=== PATIENT | female | born 1950 | race Caucasian/White ===

== ENCOUNTER 2018-08-04 01:05 | Inpatient (IN) | payer OTHER ==
[2018-08-04] VITALS (25 sets, daily range): BP systolic 99–161; BP diastolic 51–94
[~2018-08-04] VITALS: Ht 157.5 cm; Wt 63.7 kg
[~2018-08-04 01:05] MED LIST: ASPI-612 PO; ATOR40TA59 PO; CARV3.1210 PO; FURO40TA4 PO; LISI-338 PO; POTA20TA4 PO; TICA90TA PO
[2018-08-04 01:27] LABS: BASO # 0.1 x10^3/uL (0.0-0.2); BASO % 1 % (0-3); EOS % 0 % (0-3); HEMATOCRIT 39.2 % (36.0-47.0); HEMOGLOBIN 12.7 g/dL (12.0-15.5); LYMPH # 1.2 x10^3/uL (1.0-4.8); LYMPH % 12 % (24-48); MEAN CORPUSCULAR HEMOGLOBIN 29 pg (25-35); MEAN CORPUSCULAR HGB CONC 32 g/dL (31-37); MEAN CORPUSCULAR VOLUME 88 fL (79-100); MONO # 0.4 x10^3/uL (0.0-1.1); MONO % 4 % (0-9); NEUT % 83 % (31-73); PLATELET COUNT 228 x10^3/uL (140-400); RED BLOOD COUNT 4.44 x10^6/uL (3.50-5.40); RED CELL DISTRIBUTION WIDTH 15.5 % (11.5-14.5); WHITE BLOOD COUNT 9.7 x10^3/uL (4.0-11.0)
[2018-08-04 01:37] LABS: CALCIUM 8.5 mg/dL (8.5-10.1); CREATININE 1.3 mg/dL (0.6-1.0); GFR 40.5; POTASSIUM 3.6 mmol/L (3.5-5.1)
--- NOTE | 2018-08-04 01:41 | PHYS DOC ---
Past Medical History Past Medical History: CVA, Stroke Past Surgical History: No Surgical History Alcohol Use: None Drug Use: None Adult General Chief Complaint Chief Complaint: DYSPNEA/RESPIRATOY DISTRESS HPI HPI Patient is a 68 year old female presents with a chief complaint of shortness of breath. Patient states shortness of breath started suddenly around 2300 hrs. Patient states she has a mild associated cough without sputum production. She denies any chest pain. Patient arrived via EMS with the BiPAP in place. Review of Systems Review of Systems Constitutional: Denies fever or chills [] Eyes: Denies change in visual acuity, redness, or eye pain [] HENT: Denies nasal congestion or sore throat [] Respiratory: Denies cough positive shortness of breath [] Cardiovascular: No additional information not addressed in HPI [] GI: Denies abdominal pain, nausea, vomiting, bloody stools or diarrhea [] : Denies dysuria or hematuria [] Musculoskeletal: Denies back pain or joint pain [] Integument: Denies rash or skin lesions [] Neurologic: Denies headache, focal weakness or sensory changes [] Endocrine: Denies polyuria or polydipsia [] All other systems were reviewed and found to be within normal limits, except as documented in this note. Current Medications Current Medications Current Medications Medications (Trade) Dose Ordered Sig/Darby Start Time Stop Time Status Last Admin Dose Admin Furosemide (Lasix) 40 mg 1X ONCE 08/04/18 02:15 08/04/18 02:16 DC 08/04/18 02:30 40 MG Allergies Allergies Allergies Coded Allergies Type Severity Reaction Last Updated Verified No Known Drug Allergies 05/31/18 No Physical Exam Physical Exam Constitutional: Well developed, well nourished, no acute distress, non-toxic appearance. [] HENT: Normocephalic, atraumatic, bilateral external ears normal, oropharynx moist, no oral exudates, nose normal. [] Eyes: PERRLA, EOMI, conjunctiva normal, no discharge. [] Neck: Normal range of motion, no tenderness, supple, no stridor. [] Cardiovascular:Heart rate regular rhythm, no murmur [] Lungs & Thorax: Bilateral breath sounds clear to auscultation [] Abdomen: Bowel sounds normal, soft, no tenderness, no masses, no pulsatile masses. [] Skin: Warm, dry, no erythema, no rash. [] Back: No tenderness, no CVA tenderness. [] Extremities: No tenderness, no cyanosis, no clubbing, ROM intact, no edema. [] Neurologic: Alert and oriented X 3, normal motor function, normal sensory function, no focal deficits noted. [] Psychologic: Affect normal, judgement normal, mood normal. [] Current Patient Data Vital Signs Vital Signs Date Time Temp Pulse Resp B/P (MAP) Pulse Ox O2 Delivery O2 Flow Rate FiO2 08/04/18 01:18 94 BiPAP/CPAP 08/04/18 01:10 97.3 121 36 226/101 (142) 97.3 Lab Values Laboratory Tests Test 08/04/18 01:15 08/04/18 01:48 White Blood Count 9.7 x10^3/uL (4.0-11.0) Red Blood Count 4.44 x10^6/uL (3.50-5.40) Hemoglobin 12.7 g/dL (12.0-15.5) Hematocrit 39.2 % (36.0-47.0) Mean Corpuscular Volume 88 fL (79-100) Mean Corpuscular Hemoglobin 29 pg (25-35) Mean Corpuscular Hemoglobin Concent 32 g/dL (31-37) Red Cell Distribution Width 15.5 % (11.5-14.5) H Platelet Count 228 x10^3/uL (140-400) Neutrophils (%) (Auto) 83 % (31-73) H Lymphocytes (%) (Auto) 12 % (24-48) L Monocytes (%) (Auto) 4 % (0-9) Eosinophils (%) (Auto) 0 % (0-3) Basophils (%) (Auto) 1 % (0-3) Neutrophils # (Auto) 8.0 x10^3uL (1.8-7.7) H Lymphocytes # (Auto) 1.2 x10^3/uL (1.0-4.8) Monocytes # (Auto) 0.4 x10^3/uL (0.0-1.1) Eosinophils # (Auto) 0.0 x10^3/uL (0.0-0.7) Basophils # (Auto) 0.1 x10^3/uL (0.0-0.2) Sodium Level 137 mmol/L (136-145) Potassium Level 3.6 mmol/L (3.5-5.1) Chloride Level 98 mmol/L (98-107) Carbon Dioxide Level 24 mmol/L (21-32) Anion Gap 15 (6-14) H Blood Urea Nitrogen 12 mg/dL (7-20) Creatinine 1.3 mg/dL (0.6-1.0) H Estimated GFR (Cockcroft-Gault) 40.5 BUN/Creatinine Ratio 9 (6-20) Glucose Level 326 mg/dL (70-99) H Lactic Acid Level 3.9 mmol/L (0.4-2.0) H Calcium Level 8.5 mg/dL (8.5-10.1) Total Bilirubin 1.7 mg/dL (0.2-1.0) H Aspartate Amino Transferase (AST) 26 U/L (15-37) Alanine Aminotransferase (ALT) 16 U/L (14-59) Alkaline Phosphatase 85 U/L (46-116) Troponin I Quantitative 0.690 ng/mL (0.000-0.055) PG-Glh-Z-Type Natriuretic Peptide 72019 pg/mL (0-124) H Total Protein 7.4 g/dL (6.4-8.2) Albumin 3.4 g/dL (3.4-5.0) Albumin/Globulin Ratio 0.9 (1.0-1.7) L O2 Saturation 92 % (92-99) Arterial Blood pH 7.39 (7.35-7.45) Arterial Blood pCO2 at Patient Temp 37 mmHg (35-46) Arterial Blood pO2 at Patient Temp 63 mmHg (65-108) L Arterial Blood HCO3 22 mmol/L (21-28) Arterial Blood Base Excess -3 mmol/L (-3-3) FiO2 40 Laboratory Tests 08/04/18 01:15 Laboratory Tests 08/04/18 01:15 EKG EKG [] Interpretation Time: EKG time 114 Heart rate [address] elevation no ST depression no acute ME Radiology/Procedures Radiology/Procedures [] Course & Med Decision Making Course & Med Decision Making Pertinent Labs and Imaging studies reviewed. (See chart for details) []Patient was evaluated for chief complaint. Workup consisted of laboratory analysis and radiologic imaging. Results reviewed and discussed with patient. Patient noted to have an elevated BNP as well as a troponin. Patient denied any chest pain. Patient shortness of breath improved after placement of BiPAP. Treatment included aspirin and Lasix. Patient was admitted to the hospitalist for further evaluation and treatment. Critical care time 35 minutes Time spent reviewing results, care and treatment Dragon Disclaimer Dragon Disclaimer This electronic medical record was generated, in whole or in part, using a voice recognition dictation system. Departure Departure Referrals: NO PCP (PCP) MATT KIRKLAND DO Aug 04, 2018 01:41
[2018-08-04 01:42] LABS: ALBUMIN 3.4 g/dL (3.4-5.0); ALBUMIN/GLOBULIN RATIO 0.9 (1.0-1.7); TOTAL BILIRUBIN 1.7 mg/dL (0.2-1.0); TOTAL PROTEIN 7.4 g/dL (6.4-8.2)
[2018-08-04 01:48] LABS: BASE EXCESS ABG -3 mmol/L (-3-3); HCO3 ABG 22 mmol/L (21-28); PCO2 ABG 37 mmHg (35-46); PO2 ABG 63 mmHg (65-108); SAT O2 ABG 92 % (92-99)
[2018-08-04 01:56] LABS: FIO2 ABG 40
[2018-08-04] MEDS ORDERED: FUROSEMIDE 40 MG/4 ML VIAL. IVP ONE ×2 (02:15→16:45)
--- NOTE | 2018-08-04 02:55 | RAD ---
Indication:SOA TECHNIQUE:Portable AP chest X-ray COMPARISON: 05/31/2018 FINDINGS: Heart is normal in size. Diffuse bilateral interstitial opacities are seen. Lungs are hyperinflated. No focal consolidation. No pneumothorax or large. Effusion. Visualized bony thorax within normal limits. IMPRESSION: COPD. Superimposed atypical/viral infection or interstitial pulmonary edema. Electronically signed by: Sam Fuentes DO (08/04/2018 2:52 AM) [id number]
[2018-08-04] MEDS ORDERED: ONDANSETRON PF 4 MG/2 ML VIAL. IV PRN (03:00)
[2018-08-04] MEDS ORDERED: hydrALAZINE 20 MG/ML VIAL. IVP PRN (04:15)
[2018-08-04] MEDS ORDERED: DEXTROSE 50% 25 GM / 50ML DISP.SYRIN. IV PRN (04:15)
[2018-08-04] MEDS ORDERED: ASPIRIN CHEWABLE 81 MG TABLET. PO ONE (04:30)
[2018-08-04] MEDS ORDERED: cefTRIAXone IV Push 1 GM VIAL. IVP SCH (04:30)
[2018-08-04 05:34] LABS: BILIRUBIN,URINE NEGATIVE (NEG); COLOR,URINE YELLOW; NITRITE,URINE POSITIVE (NEG); PROTEIN,URINE NEGATIVE (NEG-TRACE); UROBILINOGEN,URINE 0.2 mg/dL (0.2 mg/dL)
[2018-08-04 05:51] LABS: BACTERIA,URINE MANY /HPF (0-FEW)
[2018-08-04 05:52] LABS: CLARITY,URINE HAZY
[2018-08-04] MEDS ORDERED: HEPARIN for IV BOLUS 10,000 UNIT/10 ML VIAL. IV PRN (06:30)
[2018-08-04] MEDS ORDERED: HEPARIN 25,000UTS/500ML PREMIX 500 ML IV PRN (06:30)
--- NOTE | 2018-08-04 06:42 | EKG ---
[facility] [address] [place] [address] Test Date: 2018-08-04 Test Time: 01:14:51 Pat Name: EMILY TOMPKINS Department: Room: 115 1 Gender: F Waist Pleater: : 1950 Requested By: JIMBO BANKS Order Number: [id number] Reading MD: Huseyin Gentile MD Measurements Intervals [place] Rate: 100 P: 90 ND: 102 QRS: 144 QRSD: 96 T: -38 QT: 272 QTc: 353 Interpretive Statements SINUS RHYTHM LIMB LEAD MISPLACMENT LATERAL ISCHEMIA Electronically Signed On 08-13-2018 9:25:12 CDT by Huseyin Gentile MD
[2018-08-04] MEDS: INSULIN LISPRO 300 UNITS/3 ML INSULN.PEN. SQ SCH ×3 (08:00→17:00)
--- NOTE | 2018-08-04 09:10 | PDOC2 ---
ALBANIA BELLAMY DOBBY LOOM CHAIN PEGGER 08/04/18 0910: CARDIAC CONSULT DATE OF CONSULT Date of Consult DATE: 08/04/18 TIME: 09:09 REASON FOR CONSULT Reason for Consult: CHF Exacerbation REFERRING PHYSICIAN Referring Physician: Dr. Stacy Walsh SOURCE Source: Chart review, Patient HISTORY OF PRESENT ILLNESS HISTORY OF PRESENT ILLNESS This is a 68 yo female, with a history of CHF, ICM, 3V CAD with recent infero- posterior STEMI s/p PCI/RAMÍREZ to proximal to mid RCA 05/31/18, who presented secondary to shortness of breath. Patient reports symptoms began last night. Dyspnea seemed to worsen as the night progressed so she came into the ED for further evaluation and treated. Blood pressure significantly elevated upon arrival. Patient denies any chest pain, palpitations, dizziness, diaphoresis, or nausea/vomiting. No recent chest pain with exertion or CULP. Has had cough productive of yellow sputum for the last week. Spoke with son, Joo, who takes care of all medications for the patient. Patient has been out of all medications , except ASA 81mg, since 07/17/18. PAST MEDICAL HISTORY Cardiovascular: CAD, CHF (systolic, ICM- LVEF 25%), HTN, MD (STEMI 05/2018), Hyperlipidemia Pulmonary: No pertinent hx CENTRAL NERVOUS SYSTEM: CVA GI: No pertinent hx Heme/Onc: Anemia NOS Hepatobiliary: No pertinent hx Psych: No pertinent hx Musculoskeletal: Osteoarthritis Rheumatologic: No pertinent hx Infectious disease: No pertinent hx ENT: No pertinent hx Renal/: No pertinent hx Endocrine: No pertinent hx Dermatology: No pertinent hx PAST SURGICAL HISTORY Past Surgical History: Other (PCI/RAMÍREZ to RCA) FAMILY HISTORY Family History: Diabetes, Hypertension SOCIAL HISTORY Smoke: <1 pack per day ALCOHOL: none Drugs: None Lives: with Family CURRENT MEDICATIONS CURRENT MEDICATIONS Current Medications Medications (Trade) Dose Ordered Sig/Darby Route PRN Reason Start Time Stop Time Status Last Admin Dose Admin Furosemide (Lasix) 40 mg 1X ONCE IVP 08/04/18 02:15 08/04/18 02:16 DC 08/04/18 02:30 Ceftriaxone Sodium (Rocephin) 1 gm Q24H IVP 08/04/18 04:30 08/04/18 04:39 Heparin Sodium/ Dextrose 500 ml @ 0 mls/hr CONT PRN IV SEE I/O RECORD 08/04/18 06:30 08/04/18 06:52 ALLERGIES ALLERGIES: Coded Allergies: No Known Drug Allergies (Unverified , 05/31/18) ROS Review of System 14 point ROS conducted with pertinent positives noted above in HPI PHYSICAL EXAM General: Alert, Oriented X3, Cooperative, No acute distress HEENT: Atraumatic, Mucous membr. moist/pink Lungs: Other (bibasilar crackles) Heart: Regular rate, Normal S1, Normal S2 Abdomen: No tenderness Extremities: Normal pulses, Other (1+ bilateral LE edema ) Skin: No significant lesion Neuro: Normal speech, Sensation intact Psych/Mental Status: Mental status NL, Mood NL MUSCULOSKELETAL: Osteoarthritic changes both hands VITALS VITALS Vital Signs Date Time Temp Pulse Resp B/P (MAP) Pulse Ox O2 Delivery O2 Flow Rate FiO2 08/04/18 08:26 100 BiPAP/CPAP 08/04/18 06:00 70 26 125/54 (77) 08/04/18 04:00 97.9 97.9 LABS Lab: Laboratory Tests Test 08/04/18 01:15 08/04/18 01:48 08/04/18 04:10 08/04/18 04:38 White Blood Count 9.7 x10^3/uL (4.0-11.0) Red Blood Count 4.44 x10^6/uL (3.50-5.40) Hemoglobin 12.7 g/dL (12.0-15.5) Hematocrit 39.2 % (36.0-47.0) Mean Corpuscular Volume 88 fL (79-100) Mean Corpuscular Hemoglobin 29 pg (25-35) Mean Corpuscular Hemoglobin Concent 32 g/dL (31-37) Red Cell Distribution Width 15.5 % (11.5-14.5) Platelet Count 228 x10^3/uL (140-400) Neutrophils (%) (Auto) 83 % (31-73) Lymphocytes (%) (Auto) 12 % (24-48) Monocytes (%) (Auto) 4 % (0-9) Eosinophils (%) (Auto) 0 % (0-3) Basophils (%) (Auto) 1 % (0-3) Neutrophils # (Auto) 8.0 x10^3uL (1.8-7.7) Lymphocytes # (Auto) 1.2 x10^3/uL (1.0-4.8) Monocytes # (Auto) 0.4 x10^3/uL (0.0-1.1) Eosinophils # (Auto) 0.0 x10^3/uL (0.0-0.7) Basophils # (Auto) 0.1 x10^3/uL (0.0-0.2) Sodium Level 137 mmol/L (136-145) Potassium Level 3.6 mmol/L (3.5-5.1) Chloride Level 98 mmol/L (98-107) Carbon Dioxide Level 24 mmol/L (21-32) Anion Gap 15 (6-14) Blood Urea Nitrogen 12 mg/dL (7-20) Creatinine 1.3 mg/dL (0.6-1.0) Estimated GFR (Cockcroft-Gault) 40.5 BUN/Creatinine Ratio 9 (6-20) Glucose Level 326 mg/dL (70-99) Lactic Acid Level 3.9 mmol/L (0.4-2.0) Calcium Level 8.5 mg/dL (8.5-10.1) Total Bilirubin 1.7 mg/dL (0.2-1.0) Aspartate Amino Transf (AST/SGOT) 26 U/L (15-37) Alanine Aminotransferase (ALT/SGPT) 16 U/L (14-59) Alkaline Phosphatase 85 U/L (46-116) Troponin I Quantitative 0.690 ng/mL (0.000-0.055) WA-Cuq-Y-Type Natriuretic Peptide 87901 pg/mL (0-124) Total Protein 7.4 g/dL (6.4-8.2) Albumin 3.4 g/dL (3.4-5.0) Albumin/Globulin Ratio 0.9 (1.0-1.7) O2 Saturation 92 % (92-99) Arterial Blood pH 7.39 (7.35-7.45) Arterial Blood pCO2 at Patient Temp 37 mmHg (35-46) Arterial Blood pO2 at Patient Temp 63 mmHg (65-108) Arterial Blood HCO3 22 mmol/L (21-28) Arterial Blood Base Excess -3 mmol/L (-3-3) FiO2 40 Urine Collection Type Unknown Urine Color Yellow Urine Clarity Hazy Urine pH 5.0 Urine Specific [place] 1.010 Urine Protein Negative mg/dL (NEG-TRACE) Urine Glucose (UA) Negative mg/dL (NEG) Urine Ketones (Stick) Negative mg/dL (NEG) Urine Blood Trace (NEG) Urine Nitrite Positive (NEG) Urine Bilirubin Negative (NEG) Urine Urobilinogen Dipstick 0.2 mg/dL (0.2 mg/dL) Urine Leukocyte Esterase Moderate (NEG) Urine RBC 1-2 /HPF (0-2) Urine WBC 5-10 /HPF (0-4) Urine Bacteria Many /HPF (0-FEW) Glucose (Fingerstick) 167 mg/dL (70-99) Test 08/04/18 04:50 Lactic Acid Level 2.2 mmol/L (0.4-2.0) Troponin I Quantitative 4.953 ng/mL (0.000-0.055) ECHOCARDIOGRAM ECHOCARDIOGRAM <Conclusion> The posterior/inferior fortune are severely hypokinetic. The anterolateral wall is mildly hypokinetic. Doppler and Color-flow revealed mild to moderate mitral regurgitation. The Ejection Fraction is 35%. There is moderate to severe LV dysfunction. DATE: 06/02/18 1009 HEART CATH HEART CATH Conclusion 1. Elevated left sided filling pressures (LVEDP 27 mm Hg) consistent with acute on chronic systolic HF 2. Infero-posterior STEMI 3. Severe LV dysfunction. EF 25% 4. Severe three vessel coronary disease 5. Successful PCI of the proximal to mid RCA with implantation of overlapping 3.5/38 and 3.0/38 RAMÍREZ, post-dilated with a 3.75mm NC balloon. Recommendations ASA 81mg daily Ticagrelor 90mg bid Continue Tirofiban infusion for next 12 hours Cardiac rehab referral HF regimen to be initiation on 06/01/2018 High dose statin therapy DATE: 05/31/18 0916 ASSESSMENT/PLAN ASSESSMENT/PLAN 1. Acute on chronic systolic HF; CXR with pulmonary edema. Improved with IV Lasix 2. NSTEMI; trop 4.9 in the setting of #3. Heparin gtt initiated 3. Malignant hypertension; ran out of all mediations except ASA 07/17/18. Now better controlled 4. 3V CAD; s/p PCI/RAMÍREZ to RCA 05/31/18/ 5. ICM: LVEF 35% 6. Hyperlipidemia 7. Dyslipidemia 8. JAVI 9. Hyperglycemia 10. Lactic acidosis, UTI Recommendations Limited echo to assess LV systolic function Trend troponin Resume antiHTN therapy; maintain BP control Secondary prevention measures Diuresis with monitoring of renal function Continue heparin gtt. Will plan for medical management unless further significant troponin elevation is noted. Discussed importance of medical compliance with both patient and son RITA DAVILA MD 08/04/18 1037: CARDIAC CONSULT ASSESSMENT/PLAN ASSESSMENT/PLAN Patient seen and examined. Agree with above VOLTAGE TESTER note. Presenting with flash pulm edema, ran out of meds. Trop elevation due to severe diffuse disease seen on cath less than 3 months ago. She is doing much better now, w/o pain. Lungs clr. EKG much improved compared to last admission. Continue hep, asa, ticagrelor. Restart BP meds. Supportive care. Thanks. ALBANIA BELLAMY APRN Aug 04, 2018 09:10 RITA DAVILA MD Aug 04, 2018 10:37
[2018-08-04] MEDS ORDERED: ANTI-COAG MONITOR BY PHARMACY. MC PRN (10:15)
[2018-08-04] MEDS: POTASSIUM CHLORIDE 20 MEQ TABLET.ER. PO SCH (10:47)
[2018-08-04] MEDS: LISINOPRIL 5 MG TABLET. PO SCH (10:47)
--- NOTE | 2018-08-04 11:09 | PDOC1 ---
History and Physical Date of Admission Date of Admission DATE: 08/04/18 TIME: 11:09 Identification/Chief Complaint Chief Complaint seen in er this am 68 year old female presents with a chief complaint of shortness of breath. Patient states shortness of breath started suddenly around 2300 hrs. , known icm low EF/ COPD Past Medical History Past Medical History Past Medical History Past Medical History STEMI: [facility] with 3VD. S/P PCI/RAMÍREZ to RCA. CM with EF 25% Past Medical History: CVA, Stroke Past Surgical History: No Surgical History Alcohol Use: None Drug Use: None family hx htn Cardiovascular: CAD, CHF (systolic, ICM- LVEF 25%), HTN, ND (STEMI 05/2018), Hyperlipidemia Pulmonary: No pertinent hx CENTRAL NERVOUS SYSTEM: CVA GI: No pertinent hx Heme/Onc: Anemia NOS Hepatobiliary: No pertinent hx Psych: No pertinent hx Musculoskeletal: Osteoarthritis Rheumatologic: No pertinent hx Infectious disease: No pertinent hx ENT: No pertinent hx Renal/: No pertinent hx Endocrine: No pertinent hx Dermatology: No pertinent hx Past Surgical History Past Surgical History: Other (PCI/RAMÍREZ to RCA) Family History Family History: Diabetes, Hypertension Social History Smoke: <1 pack per day ALCOHOL: none Drugs: None Current Medications Current Medications Current Medications Furosemide (Lasix) 40 mg 1X ONCE IVP Last administered on 08/04/18at 02:30; Start 08/04/18 at 02:15; Stop 08/04/18 at 02:16; Status DC Ondansetron HCl (Zofran) 4 mg PRN Q8HRS PRN IV NAUSEA/VOMITING; Start 08/04/18 at 03:00; Stop 08/05/18 at 02:59 Aspirin (Children'S Aspirin) 324 mg 1X ONCE PO ; Start 08/04/18 at 04:30; Stop 08/04/18 at 04:31; Status DC Ceftriaxone Sodium (Rocephin) 1 gm Q24H IVP Last administered on 08/04/18at 04: 39; Start 08/04/18 at 04:30 Insulin Human Lispro (HumaLOG) 0-7 UNITS TIDWMEALS SQ ; Start 08/04/18 at 08:00 Dextrose (Dextrose 50%-Water Syringe) 12.5 gm PRN Q15MIN PRN IV SEE COMMENTS; Start 08/04/18 at 04:15 Hydralazine HCl (Apresoline Inj) 10 mg PRN Q6HRS PRN IVP ELEVATED BP, SEE COMMENTS; Start 08/04/18 at 04:15 Heparin Sodium/ Dextrose 500 ml @ 0 mls/hr CONT PRN IV SEE I/O RECORD Last administered on 08/04/18at 06:52; Start 08/04/18 at 06:30 Heparin Sodium (Porcine) (Heparin Sodium) 1,650 unit PRN Q6HRS PRN IV FOR UFH LEVEL LESS THAN 0.2; Start 08/04/18 at 06:30 Aspirin (Ecotrin) 81 mg DAILYWBKFT PO ; Start 08/05/18 at 08:00 Atorvastatin Calcium (Lipitor) 40 mg QHS PO ; Start 08/04/18 at 21:00 Carvedilol (Coreg) 3.125 mg BIDWMEALS PO ; Start 08/04/18 at 17:00 Potassium Chloride (Klor-Con) 20 meq DAILYWBKFT PO Last administered on at 10:47; Start 08/04/18 at 11:00 Ticagrelor (Brilinta) 90 mg BID PO ; Start 08/04/18 at 21:00 Lisinopril (Prinivil) 5 mg DAILY PO Last administered on 08/04/18at 10:47; Start 08/04/18 at 11:00 Info (Anti-Coagulation Monitoring By Pharmacy) 1 each PRN DAILY PRN MC SEE COMMENTS; Start 08/04/18 at 10:15 Influenza Virus Vaccine (Afluria Trivalent [id number] Syringe) 0.5 ml ONCE ONCE VAX IM ; Start 08/04/18 at 11:00; Stop 08/04/18 at 11:02; Status DC Active Scripts Active Furosemide 40 Mg Tablet 40 Mg PO DAILY 30 Days Klor-Con M20 (Potassium Chloride) 20 Meq Tab.er.prt 20 Meq PO DAILYWBKFT Aspirin Ec (Aspirin) 81 Mg Tablet.dr 81 Mg PO DAILYWBKFT 30 Days Lisinopril 5 Mg Tablet 5 Mg PO DAILY 30 Days Carvedilol (Carvedilol) 3.125 Mg Tablet 3.125 Mg PO BIDWMEALS 30 Days Atorvastatin Calcium 40 Mg Tablet 40 Mg PO QHS 30 Days Brilinta (Ticagrelor) 90 Mg Tablet 90 Mg PO BID 14 Days Allergies Allergies: Coded Allergies: No Known Drug Allergies (Unverified , 05/31/18) ROS Review of System Review of Systems Review of Systems Constitutional: Denies fever or chills [] Eyes: Denies change in visual acuity, redness, or eye pain [] HENT: Denies nasal congestion or sore throat [] Respiratory: Denies cough positive shortness of breath [] Cardiovascular: No additional information not addressed in HPI [] GI: Denies abdominal pain, nausea, vomiting, bloody stools or diarrhea [] : Denies dysuria or hematuria [] Musculoskeletal: Denies back pain or joint pain [] Integument: Denies rash or skin lesions [] Neurologic: Denies headache, focal weakness or sensory changes [] Endocrine: Denies polyuria or polydipsia [] 14 PT systems were reviewed and found to be within normal limits, except as documented Physical Exam Physical Exam Physical Exam Physical Exam Constitutional: Well developed, well nourished, no acute distress, non-toxic appearance. [] HENT: Normocephalic, atraumatic, bilateral external ears normal, oropharynx moist, no oral exudates, nose normal. [] Eyes: PERRLA, EOMI, conjunctiva normal, no discharge. [] Neck: Normal range of motion, no tenderness, supple, no stridor. [] Cardiovascular:Heart rate regular rhythm, no murmur [] Lungs & Thorax: Bilateral breath sounds clear to auscultation [] Abdomen: Bowel sounds normal, soft, no tenderness, no masses, no pulsatile masses. [] Skin: Warm, dry, no erythema, no rash. [] Back: No tenderness, no CVA tenderness. [] Extremities: No tenderness, no cyanosis, no clubbing, ROM intact, no edema. [] Neurologic: Alert and oriented X 3, normal motor function, normal sensory function, no focal deficits noted. [] Psychologic: Affect normal, judgement normal, mood normal. [] General: Oriented X3, Cooperative, moderate distress Breasts: Not examined Abdomen: Soft PELVIC: Examination not indicated Extremities: No cyanosis Neuro: Normal speech, Cranial nerves 3-12 NL Psych/Mental Status: Mood NL Vitals Vitals Vital Signs Date Time Temp Pulse Resp B/P (MAP) Pulse Ox O2 Delivery O2 Flow Rate FiO2 08/04/18 10:47 61 131/57 08/04/18 08:26 100 BiPAP/CPAP 08/04/18 06:00 26 08/04/18 04:00 97.9 97.9 Labs Labs Laboratory Tests Test 08/04/18 01:15 08/04/18 01:48 08/04/18 04:10 08/04/18 04:38 White Blood Count 9.7 x10^3/uL (4.0-11.0) Red Blood Count 4.44 x10^6/uL (3.50-5.40) Hemoglobin 12.7 g/dL (12.0-15.5) Hematocrit 39.2 % (36.0-47.0) Mean Corpuscular Volume 88 fL (79-100) Mean Corpuscular Hemoglobin 29 pg (25-35) Mean Corpuscular Hemoglobin Concent 32 g/dL (31-37) Red Cell Distribution Width 15.5 % (11.5-14.5) Platelet Count 228 x10^3/uL (140-400) Neutrophils (%) (Auto) 83 % (31-73) Lymphocytes (%) (Auto) 12 % (24-48) Monocytes (%) (Auto) 4 % (0-9) Eosinophils (%) (Auto) 0 % (0-3) Basophils (%) (Auto) 1 % (0-3) Neutrophils # (Auto) 8.0 x10^3uL (1.8-7.7) Lymphocytes # (Auto) 1.2 x10^3/uL (1.0-4.8) Monocytes # (Auto) 0.4 x10^3/uL (0.0-1.1) Eosinophils # (Auto) 0.0 x10^3/uL (0.0-0.7) Basophils # (Auto) 0.1 x10^3/uL (0.0-0.2) Sodium Level 137 mmol/L (136-145) Potassium Level 3.6 mmol/L (3.5-5.1) Chloride Level 98 mmol/L (98-107) Carbon Dioxide Level 24 mmol/L (21-32) Anion Gap 15 (6-14) Blood Urea Nitrogen 12 mg/dL (7-20) Creatinine 1.3 mg/dL (0.6-1.0) Estimated GFR (Cockcroft-Gault) 40.5 BUN/Creatinine Ratio 9 (6-20) Glucose Level 326 mg/dL (70-99) Lactic Acid Level 3.9 mmol/L (0.4-2.0) Calcium Level 8.5 mg/dL (8.5-10.1) Total Bilirubin 1.7 mg/dL (0.2-1.0) Aspartate Amino Transf (AST/SGOT) 26 U/L (15-37) Alanine Aminotransferase (ALT/SGPT) 16 U/L (14-59) Alkaline Phosphatase 85 U/L (46-116) Troponin I Quantitative 0.690 ng/mL (0.000-0.055) ML-Ray-U-Type Natriuretic Peptide 88950 pg/mL (0-124) Total Protein 7.4 g/dL (6.4-8.2) Albumin 3.4 g/dL (3.4-5.0) Albumin/Globulin Ratio 0.9 (1.0-1.7) O2 Saturation 92 % (92-99) Arterial Blood pH 7.39 (7.35-7.45) Arterial Blood pCO2 at Patient Temp 37 mmHg (35-46) Arterial Blood pO2 at Patient Temp 63 mmHg (65-108) Arterial Blood HCO3 22 mmol/L (21-28) Arterial Blood Base Excess -3 mmol/L (-3-3) FiO2 40 Urine Collection Type Unknown Urine Color Yellow Urine Clarity Hazy Urine pH 5.0 Urine Specific [place] 1.010 Urine Protein Negative mg/dL (NEG-TRACE) Urine Glucose (UA) Negative mg/dL (NEG) Urine Ketones (Stick) Negative mg/dL (NEG) Urine Blood Trace (NEG) Urine Nitrite Positive (NEG) Urine Bilirubin Negative (NEG) Urine Urobilinogen Dipstick 0.2 mg/dL (0.2 mg/dL) Urine Leukocyte Esterase Moderate (NEG) Urine RBC 1-2 /HPF (0-2) Urine WBC 5-10 /HPF (0-4) Urine Bacteria Many /HPF (0-FEW) Glucose (Fingerstick) 167 mg/dL (70-99) Test 08/04/18 04:50 08/04/18 09:10 Lactic Acid Level 2.2 mmol/L (0.4-2.0) Troponin I Quantitative 4.953 ng/mL (0.000-0.055) 13.796 ng/mL (0.000-0.055) Triglycerides Level 59 mg/dL (0-150) Cholesterol Level 194 mg/dL (0-200) LDL Cholesterol, Calculated 133 mg/dL (0-100) VLDL Cholesterol, Calculated 12 mg/dL (0-40) Non-HDL Cholesterol Calculated 145 mg/dL (0-129) HDL Cholesterol 49 mg/dL (40-60) Cholesterol/HDL Ratio 4.0 Laboratory Tests Test 08/04/18 01:15 08/04/18 01:48 08/04/18 04:10 08/04/18 04:38 White Blood Count 9.7 x10^3/uL (4.0-11.0) Red Blood Count 4.44 x10^6/uL (3.50-5.40) Hemoglobin 12.7 g/dL (12.0-15.5) Hematocrit 39.2 % (36.0-47.0) Mean Corpuscular Volume 88 fL (79-100) Mean Corpuscular Hemoglobin 29 pg (25-35) Mean Corpuscular Hemoglobin Concent 32 g/dL (31-37) Red Cell Distribution Width 15.5 % (11.5-14.5) Platelet Count 228 x10^3/uL (140-400) Neutrophils (%) (Auto) 83 % (31-73) Lymphocytes (%) (Auto) 12 % (24-48) Monocytes (%) (Auto) 4 % (0-9) Eosinophils (%) (Auto) 0 % (0-3) Basophils (%) (Auto) 1 % (0-3) Neutrophils # (Auto) 8.0 x10^3uL (1.8-7.7) Lymphocytes # (Auto) 1.2 x10^3/uL (1.0-4.8) Monocytes # (Auto) 0.4 x10^3/uL (0.0-1.1) Eosinophils # (Auto) 0.0 x10^3/uL (0.0-0.7) Basophils # (Auto) 0.1 x10^3/uL (0.0-0.2) Sodium Level 137 mmol/L (136-145) Potassium Level 3.6 mmol/L (3.5-5.1) Chloride Level 98 mmol/L (98-107) Carbon Dioxide Level 24 mmol/L (21-32) Anion Gap 15 (6-14) Blood Urea Nitrogen 12 mg/dL (7-20) Creatinine 1.3 mg/dL (0.6-1.0) Estimated GFR (Cockcroft-Gault) 40.5 BUN/Creatinine Ratio 9 (6-20) Glucose Level 326 mg/dL (70-99) Lactic Acid Level 3.9 mmol/L (0.4-2.0) Calcium Level 8.5 mg/dL (8.5-10.1) Total Bilirubin 1.7 mg/dL (0.2-1.0) Aspartate Amino Transf (AST/SGOT) 26 U/L (15-37) Alanine Aminotransferase (ALT/SGPT) 16 U/L (14-59) Alkaline Phosphatase 85 U/L (46-116) Troponin I Quantitative 0.690 ng/mL (0.000-0.055) BO-Aze-P-Type Natriuretic Peptide 84457 pg/mL (0-124) Total Protein 7.4 g/dL (6.4-8.2) Albumin 3.4 g/dL (3.4-5.0) Albumin/Globulin Ratio 0.9 (1.0-1.7) O2 Saturation 92 % (92-99) Arterial Blood pH 7.39 (7.35-7.45) Arterial Blood pCO2 at Patient Temp 37 mmHg (35-46) Arterial Blood pO2 at Patient Temp 63 mmHg (65-108) Arterial Blood HCO3 22 mmol/L (21-28) Arterial Blood Base Excess -3 mmol/L (-3-3) FiO2 40 Urine Collection Type Unknown Urine Color Yellow Urine Clarity Hazy Urine pH 5.0 Urine Specific [place] 1.010 Urine Protein Negative mg/dL (NEG-TRACE) Urine Glucose (UA) Negative mg/dL (NEG) Urine Ketones (Stick) Negative mg/dL (NEG) Urine Blood Trace (NEG) Urine Nitrite Positive (NEG) Urine Bilirubin Negative (NEG) Urine Urobilinogen Dipstick 0.2 mg/dL (0.2 mg/dL) Urine Leukocyte Esterase Moderate (NEG) Urine RBC 1-2 /HPF (0-2) Urine WBC 5-10 /HPF (0-4) Urine Bacteria Many /HPF (0-FEW) Glucose (Fingerstick) 167 mg/dL (70-99) Test 08/04/18 04:50 08/04/18 09:10 Lactic Acid Level 2.2 mmol/L (0.4-2.0) Troponin I Quantitative 4.953 ng/mL (0.000-0.055) 13.796 ng/mL (0.000-0.055) Triglycerides Level 59 mg/dL (0-150) Cholesterol Level 194 mg/dL (0-200) LDL Cholesterol, Calculated 133 mg/dL (0-100) VLDL Cholesterol, Calculated 12 mg/dL (0-40) Non-HDL Cholesterol Calculated 145 mg/dL (0-129) HDL Cholesterol 49 mg/dL (40-60) Cholesterol/HDL Ratio 4.0 VTE Prophylaxis Ordered VTE Prophylaxis Devices: Yes VTE Pharmacological Prophylaxi: Yes Assessment/Plan Assessment/Plan IMPRESSION flash PULMONARY EDEMA STEMI: [facility] with 3VD. S/P PCI/RAMÍREZ to RCA. CM with EF 25% SEVERE chronic obstructive pulmonary disease //tobacco use. PLAN ADMIT ICU BED CARDIOLOGY CONSULT IV DIURESIS PULM CONSULT 35 MIN CC TIME LEONEL THAKUR MD Aug 04, 2018 11:09
--- NOTE | 2018-08-04 11:38 | CONS ---
DATE OF CONSULTATION: ATTENDING PHYSICIAN: Dr. Julia Walsh. REASON FOR CONSULTATION: Hypoxia and dyspnea. HISTORY OF PRESENT ILLNESS: The patient is a 68-year-old female who has history of congestive heart failure, history of ischemic cardiomyopathy, three-vessel coronary artery disease, recent inferoposterior STEMI status post PCI to proximal and mid RCA in May. She presented to the hospital with increasing shortness of breath. Apparently, she stopped taking her medications as she ran out of them in the last one month. The patient's blood pressure was high as well on admission. She had no chest pain, no headaches. No cough, no fever, no chills, no nausea or vomiting, no diarrhea. The patient had no leg edema, no focal weakness. Her chest x-ray was consistent with mild interstitial edema. I have been asked to see her for further evaluation. She did smoke for 40 years before quitting few months ago. PAST MEDICAL HISTORY: History of ischemic cardiomyopathy, EF of 25%; history of STEMI, status post PCI to RCA; suspect underlying COPD, unknown FEV1. PAST SURGICAL HISTORY: Cath recently in May with PCI/RAMÍREZ to RCA. FAMILY HISTORY: Diabetes and hypertension. SOCIAL HISTORY: Less than 1 pack per day for 40 years, quit few months ago. ALLERGIES: None. MEDICATIONS: Reviewed, as listed in the MRAD. REVIEW OF SYSTEMS: Twelve-point system obtained. Pertinent positives discussed in my history of present illness, otherwise noncontributory. All systems that were negative were reviewed as well. PHYSICAL EXAMINATION: VITAL SIGNS: Reviewed. Blood pressure is stable. She is off the BiPAP. Pulse ox is 100% on nasal cannula. HEENT: Sclerae nonicteric. NECK: Supple. LUNGS: Clear. CARDIOVASCULAR: Regular rate. ABDOMEN: Soft, nontender. EXTREMITIES: With no pitting edema. LABORATORY DATA: Reviewed. ABGs with a pH of 7.39, pCO2 of 37 and pO2 of 63 on 40% FiO2. BUN and creatinine 12 and 1.3. White cell count 9.7. IMPRESSION: 1. Acute hypoxic respiratory failure secondary to [id number] systolic heart failure. 2. The patient with ischemic cardiomyopathy with an EF of 25%. 3. Recent inferoposterior ST elevation myocardial infarction in May of this year, status post percutaneous coronary intervention/drug-eluting stent to mid RCA.Now with another NSTMI 4. Recent left heart catheterization with elevated filling pressures on the left side. 5. Suspected underlying chronic obstructive pulmonary disease with 40 years of tobacco use. 6. No clinical evidence to suggest pneumonia. RECOMMENDATIONS: 1. From a pulmonary standpoint, she is improved. She no longer needs BiPAP. Continue with nasal cannula with gradual wean. 2. Diuresis p.r.n. 3. Follow Cardiology's recommendations. 4. Follow troponin levels. Her peak troponin was 13.7. She has another non-STEMI. 5. Continue bronchodilators. 6. Antibiotics can be discontinued from a pulmonary standpoint. 7. Discussed with RN. We will follow along with you. Critical care time 33 minutes. GARRETT MELCHOR MD DR: EUGENE/isha JOB#: [id number] / [id number] SHYANNE
[2018-08-04] MEDS: IPRATRPIUM/ALBUTEROL 0.5/2.5MG 3 ML NEBU. NEB SCH ×3 (12:00→20:12)
--- NOTE | 2018-08-04 13:35 | NUR ---
SS following for discharge planning. SS reviewed pt chart. Pt is from home and is currently requiring oxygen. No discharge needs noted at this time. SS will continue to follow for pending discharge needs.
--- NOTE | 2018-08-04 14:05 | EKG ---
[facility] [address] [place] [id number] Test Date: 2018-08-04 Test Time: 13:56:19 Pat Name: EMILY TOMPKINS Department: Room: 115 1 Gender: F Help Desk Assistant: BALDEV : [id number] Requested By: ALBANIA BELLAMY Order Number: [id number] Reading MD: Huseyin Gentile MD Measurements Intervals [place] Rate: 68 P: 0 WV: 88 QRS: 178 QRSD: 108 T: -178 QT: 504 QTc: 542 Interpretive Statements SINUS RHYTHM ANTEROLATERAL ISCHEMIA Electronically Signed On 08-13-2018 9:29:40 CDT by Huseyin Gentile MD
[2018-08-04] MEDS ORDERED: LIDOCAINE 1% PF 2 ML VIAL. ONE (15:20)
[2018-08-04] MEDS ORDERED: IODIXANOL 320 MG/ML 100 ML VIAL. ONE (15:20)
--- NOTE | 2018-08-04 15:20 | CARD ---
MR#: [id number] Date of Study: 08/04/2018 Ordering Physician: ALBANIA BELLAMY, Referring Physician: DANYELL ELLER, Tech: Dinora Hill [facility] APPROVED REPORT EXAM: LIMITED Two-dimensional echocardiogram. Other Information Quality : Good INDICATION Cardiac Disease: CAD Non STEMI LEFT VENTRICLE The Ejection Fraction is 35-40%. The basal to mid inferior wall, inferolateral wall are severely hypo kinetic. Remainder of the LV is mildly hypokinetic. GREAT VESSELS The aortic root is normal in size. PERICARDIAL EFFUSION There is no evidence of significant pericardial effusion. Critical Notification Critical Value: No <Conclusion> The basal to mid inferior wall, inferolateral wall are severely hypokinetic. Remainder of the LV is m ildly hypokinetic. The Ejection Fraction is 35-40%. Limited TTE for wall motion only. Signed by : Huseyin Gentile, Electronically Approved : 08/04/2018 15:19:42
[2018-08-04] MEDS ORDERED: LIDOCAINE 1% Multi-Dose 20 ML VIAL. ONE (15:27)
--- NOTE | 2018-08-04 15:27 | NUR ---
Dr Gentile notified of Trop increase. Pt has been NPO all day. Consents signed by pt but also spoke with son Joo on phone who is also agreeable to cardiac cath. O2 has been titrated down from Bipap 50% to 3l n/c w/o diff with sat >94%. Pt has denied any disconfort or shortness of air. Has appeared comfortable all day. Hep gtt was infusing at 14units/kg/hr with ufh's. IV x 2 patent
[2018-08-04] MEDS ORDERED: MIDAZOLAM HCL/PF 2 MG/2 ML VIAL. ONE (15:29)
[2018-08-04] MEDS ORDERED: fentaNYL PF VIAL 100 MCG/2 ML VIAL ONE (15:29)
--- NOTE | 2018-08-04 15:29 | PDOC ---
MODERATE SEDATION ASSESSMENT RISKS/ALTERNATIVES Risks/Alternatives Risks and alternatives of this type of sedation and procedure discussed with: RISK/ALTERNATIVES: Patient H & P ON CHART H & P H & P on chart and reviewed for co-morbid conditions and appropriate labs. H&P ON CHART: Yes STATUS PREG STATUS ASSESSED: N/A MEDS/ALLERGIES REVIEWED Meds/Allergies Reviewed Medications and Allergies including time and route of recently administered narcotics and sedatives. MEDS/ALLERGIES REVIEWED: Yes ASA RATING ASA RATING: III AIRWAY ASSESSMENT Airway Assessment Airway patency, oral function limitations, presence of caps, crowns, dentures, partials, and ability to extend neck assessed. AIRWAY ASSESSMENT: Yes MALLAMPATI SCORE MALLAMPATI SCORE: II PRE-SEDATION ASSESSMENT PRE-SEDATION ASSESSMENT: Yes IRTA DAVILA MD Aug 04, 2018 15:29
[2018-08-04] MEDS ORDERED: CONTRAST GIVEN. MC PRN (15:45)
[2018-08-04] MEDS ORDERED: IOHEXOL 300 MG/ML 100ML VIAL. IART ONE (15:45)
[2018-08-04] MEDS ORDERED: fentaNYL PF VIAL 100 MCG/2 ML VIAL IV ONE (15:45)
[2018-08-04] MEDS ORDERED: LIDOCAINE 1% Multi-Dose 20 ML VIAL. INJ ONE (15:45)
[2018-08-04] MEDS ORDERED: MIDAZOLAM HCL/PF 2 MG/2 ML VIAL. IV ONE (15:45)
--- NOTE | 2018-08-04 16:00 | NUR ---
Recd from cathlab post
--- NOTE | 2018-08-04 16:00 | NUR ---
Rec'd from record label internship . Pt sleepy but arousable Rt groin dry and intact with doppler distal pulse. Reported previous stents open. Spoke with Dr webber to cont Hep gtt till tomorrow and give Lasix 40mg IV x1 today. Will notify son Joo pt has returned to room. VSS. IV patent. o2 increased to 4l n/c till more alert.
--- NOTE | 2018-08-04 16:03 | PDOC ---
Provider Note Provider Note Pt with continued troponin elevation, therefore, taken to the brine room laborer for further eval. No significant change from last cath. Severe small vessel disease. Continue medical therapy. Stents patent. RITA DAVILA MD Aug 04, 2018 16:03
--- NOTE | 2018-08-04 18:31 | CARD ---
MR#: [id number] Date of Study: 08/04/2018 Ordering Physician: DANYELL ELLER, Referring Physician: DANYELL ELLER, Tech: RT Scottie (Giacomo) ELEUTERIO APPROVED REPORT Technologist: RT Scottie (R) ELEUTERIO Nurse: Beverley Gallagher RN Procedure(s) performed: moderate sedation 20 minutes LHC, Coronary angiography HISTORY The patient is a 68 year-old female with a history of : coronary artery disease, hypertension, dyslip idemia. INDICATION The indication(s) include : non-STEMI Trop of 17. PROCEDURE NARRATIVE After explaining the risks and benefits of the procedure and alternatives, informed consent was obtai domenica. The patient was brought electively to the cardiac catheterization lab in a fasting state. A chris eout was performed confirming the patient's name, date of , procedure, and site of procedure. A ll necessary personnel were wearing the appropriate protective equipment and radiation monitor device s. (See nursing notes for medications administered). The right groin was sterilely prepped and drap ed in the usual fashion. The right groin was infiltrated with 10 mL of 2% lidocaine for subcutaneous anesthesia. A 6 F sheath was inserted into the right femoral artery without difficulty. Right and left coronary angiography was performed using a JR4 and JL4 catheter. Left ventricular end diastolic pressure was obtained with a pigtail catheter and pullback was performed. All catheter exchanges an d advancements were performed over a guidewire. At case completion the right femoral sheath was vira joseline and hemostasis was achieved with an Angioseal Device after limited femoral angiography confirmed adequate vessel size and anatomy. There were no acute complications. HEMODYNAMICS: AO: 116/82 LVEDP 28 mm Hg No gradient on LV to aortic pullback. LEFT VENTRICULOGRAM:Deferred due to known EF. CORONARY ANGIOGRAPHY: LM is a large caliber vessel with distal 30% stenosis. LAD is a small caliber less than 2mm vessel in the mid to distal segments with significant diffuse di sease of up to 50%. D1 is a small caliber vessel with diffuse irregularities of up to 50%. LCx and OM1 are small caliber vessels with subtotal occlusions in the mid to distal segments. RCA is a large caliber vessel with widely patent proximal and mid stents. RPDA is a small caliber vessel with mild diffuse irregularities of up to 30%. RPL has a mid 95% stenosis. The vessel is very small in caliber Conclusion 1. Elevated left sided filling pressures. LVEDP 28 mm Hg 2. Severe iroquois three vessel coronary disease with patent RCA stents. 3. NSTEMI related to small vessel disease. Recommendations Aggressive Medical Therapy Signed by : Huseyin Gentile, Electronically Approved : 08/04/2018 18:31:05
[2018-08-04] MEDS: CARVEDILOL 3.125 MG TABLET. PO SCH (18:43)
[2018-08-04] MEDS: ATORVASTATIN CALCIUM 40 MG TABLET. PO SCH (21:09)
[2018-08-04] MEDS: TICAGRELOR 90 MG TABLET. PO SCH (21:09)
[2018-08-05] VITALS (11 sets, daily range): BP systolic 89–145; BP diastolic 42–61
[2018-08-05 06:19] LABS: HEMATOCRIT 34.9 % (36.0-47.0); HEMOGLOBIN 11.8 g/dL (12.0-15.5); RED BLOOD COUNT 4.05 x10^6/uL (3.50-5.40); RED CELL DISTRIBUTION WIDTH 15.2 % (11.5-14.5); WHITE BLOOD COUNT 4.9 x10^3/uL (4.0-11.0)
--- NOTE | 2018-08-05 07:53 | PDOC ---
CARDIOLOGY PROGRESS NOTE SUBJECTIVE: No new events overnight. No further dyspnea or chest pain OBJECTIVE: Vital SIgns: Vital Signs Date Time Temp Pulse Resp B/P (MAP) Pulse Ox O2 Delivery O2 Flow Rate FiO2 08/05/18 06:00 55 20 92/45 (61) 95 Nasal Cannula 1.0 08/05/18 04:00 98.6 98.6 I & O -1L Objective: a/o x 3. NAD CVS; RRR, no m/r/g PULM: Bilateral faint wheezes soft abd no edema. CURRENT MEDICATIONS: asa, ticagrelor, coreg, lisinopril lasix ASSESSMENT: 1. NSTEMI 2. Ischemic CMP 3. Flash pulm edema. 4. HTN 5. Failure to thrive at home. PLAN: 1. Continue present meds. Stop Hep gtt 2. Ok to transfer to floor. Supportive care. BP/HR stable. RITA DAVILA MD Aug 05, 2018 07:53
[2018-08-05] MEDS ORDERED: FUROSEMIDE 20 MG/2 ML VIAL. IVP ONE (08:00)
[2018-08-05] MEDS: INSULIN LISPRO 300 UNITS/3 ML INSULN.PEN. SQ SCH ×3 (08:00→17:00)
[2018-08-05] MEDS: IPRATRPIUM/ALBUTEROL 0.5/2.5MG 3 ML NEBU. NEB SCH ×4 (08:00→19:31)
[2018-08-05] MEDS: POTASSIUM CHLORIDE 20 MEQ TABLET.ER. PO SCH (08:52)
[2018-08-05] MEDS: CARVEDILOL 3.125 MG TABLET. PO SCH ×2 (08:53→17:27)
[2018-08-05] MEDS: LISINOPRIL 5 MG TABLET. PO SCH (08:53)
[2018-08-05] MEDS: TICAGRELOR 90 MG TABLET. PO SCH ×2 (08:53→21:09)
[2018-08-05] MEDS: ASPIRIN ENTERIC COATED 81 MG TABLET.DR. PO SCH (08:54)
--- NOTE | 2018-08-05 10:37 | PDOC ---
PULMONARY PROGRESS NOTES Subjective no soa Vitals Vital Signs Date Time Temp Pulse Resp B/P (MAP) Pulse Ox O2 Delivery O2 Flow Rate FiO2 08/05/18 09:04 97 Nasal Cannula 1.0 08/05/18 08:53 74 126/61 08/05/18 06:00 20 08/05/18 04:00 98.6 98.6 General: Alert, No acute distress Lungs: Clear Cardiovascular: S1 Abdomen: Soft Neuro Exam: Alert Extremities: No Edema Skin: Warm Labs Laboratory Tests Test 08/04/18 01:15 08/04/18 01:48 08/04/18 04:10 08/04/18 04:38 White Blood Count 9.7 x10^3/uL (4.0-11.0) Red Blood Count 4.44 x10^6/uL (3.50-5.40) Hemoglobin 12.7 g/dL (12.0-15.5) Hematocrit 39.2 % (36.0-47.0) Mean Corpuscular Volume 88 fL (79-100) Mean Corpuscular Hemoglobin 29 pg (25-35) Mean Corpuscular Hemoglobin Concent 32 g/dL (31-37) Red Cell Distribution Width 15.5 % (11.5-14.5) Platelet Count 228 x10^3/uL (140-400) Neutrophils (%) (Auto) 83 % (31-73) Lymphocytes (%) (Auto) 12 % (24-48) Monocytes (%) (Auto) 4 % (0-9) Eosinophils (%) (Auto) 0 % (0-3) Basophils (%) (Auto) 1 % (0-3) Neutrophils # (Auto) 8.0 x10^3uL (1.8-7.7) Lymphocytes # (Auto) 1.2 x10^3/uL (1.0-4.8) Monocytes # (Auto) 0.4 x10^3/uL (0.0-1.1) Eosinophils # (Auto) 0.0 x10^3/uL (0.0-0.7) Basophils # (Auto) 0.1 x10^3/uL (0.0-0.2) Sodium Level 137 mmol/L (136-145) Potassium Level 3.6 mmol/L (3.5-5.1) Chloride Level 98 mmol/L (98-107) Carbon Dioxide Level 24 mmol/L (21-32) Anion Gap 15 (6-14) Blood Urea Nitrogen 12 mg/dL (7-20) Creatinine 1.3 mg/dL (0.6-1.0) Estimated GFR (Cockcroft-Gault) 40.5 BUN/Creatinine Ratio 9 (6-20) Glucose Level 326 mg/dL (70-99) Lactic Acid Level 3.9 mmol/L (0.4-2.0) Calcium Level 8.5 mg/dL (8.5-10.1) Total Bilirubin 1.7 mg/dL (0.2-1.0) Aspartate Amino Transf (AST/SGOT) 26 U/L (15-37) Alanine Aminotransferase (ALT/SGPT) 16 U/L (14-59) Alkaline Phosphatase 85 U/L (46-116) Troponin I Quantitative 0.690 ng/mL (0.000-0.055) IG-Jqf-J-Type Natriuretic Peptide 78802 pg/mL (0-124) Total Protein 7.4 g/dL (6.4-8.2) Albumin 3.4 g/dL (3.4-5.0) Albumin/Globulin Ratio 0.9 (1.0-1.7) O2 Saturation 92 % (92-99) Arterial Blood pH 7.39 (7.35-7.45) Arterial Blood pCO2 at Patient Temp 37 mmHg (35-46) Arterial Blood pO2 at Patient Temp 63 mmHg (65-108) Arterial Blood HCO3 22 mmol/L (21-28) Arterial Blood Base Excess -3 mmol/L (-3-3) FiO2 40 Urine Collection Type Unknown Urine Color Yellow Urine Clarity Hazy Urine pH 5.0 Urine Specific [place] 1.010 Urine Protein Negative mg/dL (NEG-TRACE) Urine Glucose (UA) Negative mg/dL (NEG) Urine Ketones (Stick) Negative mg/dL (NEG) Urine Blood Trace (NEG) Urine Nitrite Positive (NEG) Urine Bilirubin Negative (NEG) Urine Urobilinogen Dipstick 0.2 mg/dL (0.2 mg/dL) Urine Leukocyte Esterase Moderate (NEG) Urine RBC 1-2 /HPF (0-2) Urine WBC 5-10 /HPF (0-4) Urine Bacteria Many /HPF (0-FEW) Glucose (Fingerstick) 167 mg/dL (70-99) Test 08/04/18 04:50 08/04/18 09:10 08/04/18 11:56 08/04/18 13:00 Lactic Acid Level 2.2 mmol/L (0.4-2.0) Troponin I Quantitative 4.953 ng/mL (0.000-0.055) 13.796 ng/mL (0.000-0.055) 17.335 ng/mL (0.000-0.055) Triglycerides Level 59 mg/dL (0-150) Cholesterol Level 194 mg/dL (0-200) LDL Cholesterol, Calculated 133 mg/dL (0-100) VLDL Cholesterol, Calculated 12 mg/dL (0-40) Non-HDL Cholesterol Calculated 145 mg/dL (0-129) HDL Cholesterol 49 mg/dL (40-60) Cholesterol/HDL Ratio 4.0 Glucose (Fingerstick) 154 mg/dL (70-99) Heparin Anti-Xa Act, Unfractionated 0.22 IU/mL (0.30-0.70) Test 08/04/18 23:35 08/05/18 05:46 08/05/18 08:12 Heparin Anti-Xa Act, Unfractionated 0.42 IU/mL (0.30-0.70) 0.50 IU/mL (0.30-0.70) White Blood Count 4.9 x10^3/uL (4.0-11.0) Red Blood Count 4.05 x10^6/uL (3.50-5.40) Hemoglobin 11.8 g/dL (12.0-15.5) Hematocrit 34.9 % (36.0-47.0) Mean Corpuscular Volume 86 fL (79-100) Mean Corpuscular Hemoglobin 29 pg (25-35) Mean Corpuscular Hemoglobin Concent 34 g/dL (31-37) Red Cell Distribution Width 15.2 % (11.5-14.5) Platelet Count 163 x10^3/uL (140-400) Glucose (Fingerstick) 90 mg/dL (70-99) Laboratory Tests Test 08/04/18 11:56 08/04/18 13:00 08/04/18 23:35 08/05/18 05:46 Glucose (Fingerstick) 154 mg/dL (70-99) Heparin Anti-Xa Act, Unfractionated 0.22 IU/mL (0.30-0.70) 0.42 IU/mL (0.30-0.70) 0.50 IU/mL (0.30-0.70) Troponin I Quantitative 17.335 ng/mL (0.000-0.055) White Blood Count 4.9 x10^3/uL (4.0-11.0) Red Blood Count 4.05 x10^6/uL (3.50-5.40) Hemoglobin 11.8 g/dL (12.0-15.5) Hematocrit 34.9 % (36.0-47.0) Mean Corpuscular Volume 86 fL (79-100) Mean Corpuscular Hemoglobin 29 pg (25-35) Mean Corpuscular Hemoglobin Concent 34 g/dL (31-37) Red Cell Distribution Width 15.2 % (11.5-14.5) Platelet Count 163 x10^3/uL (140-400) Test 08/05/18 08:12 Glucose (Fingerstick) 90 mg/dL (70-99) Medications Active Scripts Medications Dose Route/Sig Max Daily Dose Days Date Category Furosemide 40 Mg Tablet 40 Mg PO DAILY 30 06/02/18 Rx Klor-Con M20 (Potassium Chloride) 20 Meq Tab.er.prt 20 Meq PO DAILYWBKFT 06/02/18 Rx Aspirin Ec (Aspirin) 81 Mg Tablet.dr 81 Mg PO DAILYWBKFT 06/02/18 Rx Lisinopril 5 Mg Tablet 5 Mg PO DAILY 30 06/02/18 Rx Carvedilol (Carvedilol) 3.125 Mg Tablet 3.125 Mg PO BIDWMEALS 30 06/02/18 Rx Atorvastatin Calcium 40 Mg Tablet 40 Mg PO QHS 30 06/02/18 Rx Brilinta (Ticagrelor) 90 Mg Tablet 90 Mg PO BID 14 06/02/18 Rx Impression . 1. Acute hypoxic respiratory failure secondary to [id number] systolic heart failure. 2. The patient with ischemic cardiomyopathy with an EF of 25%. 3. Recent inferoposterior ST elevation myocardial infarction in May of this year, status post percutaneous coronary intervention/drug-eluting stent to mid RCA.Now with another NSTMI 4. Recent left heart catheterization with elevated filling pressures on the left side. 5. Suspected underlying chronic obstructive pulmonary disease with 40 years of tobacco use. 6. No clinical evidence to suggest pneumonia. Plan . 1. From a pulmonary standpoint, she is improved. She no longer needs BiPAP. Continue with nasal cannula 2. Diuresis p.r.n. 3. Follow Cardiology's recommendations. 4. Follow troponin levels. Her peak troponin was 13.7. She has another non-STEMI. 5. Continue bronchodilators. 6. Antibiotics can be discontinued from a pulmonary standpoint. 7. Discussed with RN. We will follow along with you. GARRETT MELCHOR MD Aug 05, 2018 10:36
--- NOTE | 2018-08-05 11:52 | PDOC ---
PROGRESS NOTES History of Present Illness History of Present Illness Assessment/Plan flash PULMONARY EDEMA STEMI: [facility] with 3VD. TROP > 17 S/P PCI/RAMÍREZ to RCA. CM with EF 25% NSTEMI related to SEVERE small vessel disease. DIABETES RPL has a mid 95% stenosis. The vessel is very small in caliber PLAN ICU BED CARDIOLOGY FOLLOWING IV DIURESIS PULM CONSULT STOP HEPARIN DRIP, TO TELE FOLLOW TROPONIN I SS INSULIN A1C ADA DIET 34 MIN CC TIME Vitals Vitals Vital Signs Date Time Temp Pulse Resp B/P (MAP) Pulse Ox O2 Delivery O2 Flow Rate FiO2 08/05/18 09:04 97 Nasal Cannula 1.0 08/05/18 08:53 74 126/61 08/05/18 06:00 20 08/05/18 04:00 98.6 98.6 Physical Exam General: Alert, Oriented X3, Cooperative, No acute distress, mild distress Heart: Regular rate, Normal S1, Normal S2 Lungs: Clear Abdomen: Normal bowel sounds, Soft, No tenderness Extremities: No cyanosis, Normal pulses, Other (1+ bilateral LE edema ) Skin: No significant lesion Labs LABS HISTORY The patient is a 68 year-old female with a history of : coronary artery disease , hypertension, dyslipidemia. INDICATION The indication(s) include : non-STEMI Trop of 17. PROCEDURE NARRATIVE After explaining the risks and benefits of the procedure and alternatives, informed consent was obtained. The patient was brought electively to the cardiac catheterization lab in a fasting state. A timeout was performed confirming the patient's name, date of , procedure, and site of procedure. All necessary personnel were wearing the appropriate protective equipment and radiation monitor devices. (See nursing notes for medications administered). The right groin was sterilely prepped and draped in the usual fashion. The right groin was infiltrated with 10 mL of 2% lidocaine for subcutaneous anesthesia. A 6 F sheath was inserted into the right femoral artery without difficulty. Right and left coronary angiography was performed using a JR4 and JL4 catheter. Left ventricular end diastolic pressure was obtained with a pigtail catheter and pullback was performed. All catheter exchanges and advancements were performed over a guidewire. At case completion the right femoral sheath was removed and hemostasis was achieved with an Angioseal Device after limited femoral angiography confirmed adequate vessel size and anatomy. There were no acute complications. HEMODYNAMICS: AO: 116/82 LVEDP 28 mm Hg No gradient on LV to aortic pullback. LEFT VENTRICULOGRAM:Deferred due to known EF. CORONARY ANGIOGRAPHY: LM is a large caliber vessel with distal 30% stenosis. LAD is a small caliber less than 2mm vessel in the mid to distal segments with significant diffuse disease of up to 50%. D1 is a small caliber vessel with diffuse irregularities of up to 50%. LCx and OM1 are small caliber vessels with subtotal occlusions in the mid to distal segments. RCA is a large caliber vessel with widely patent proximal and mid stents. RPDA is a small caliber vessel with mild diffuse irregularities of up to 30%. RPL has a mid 95% stenosis. The vessel is very small in caliber Conclusion 1. Elevated left sided filling pressures. LVEDP 28 mm Hg 2. Severe grand traverse three vessel coronary disease with patent RCA stents. 3. NSTEMI related to small vessel disease. Recommendations Aggressive Medical Therapy Signed by : Huseyin Gentile, Electronically Approved : 08/04/2018 18:31:05 SEX: F EXAM STATUS: ADM IN ORD. PHYSICIAN: ALBANIA BELLAMY APRN REASON: CAD, NSTEMI PROCEDURE: LIMITED ECHO MR#: [id number] Date of Study: 08/04/2018 Ordering Physician: ALBANIA BELLAMY, Referring Physician: DANYELL ELLER, Tech: Dinora Hill [facility] APPROVED REPORT EXAM: LIMITED Two-dimensional echocardiogram. Other Information Quality : Good INDICATION Cardiac Disease: CAD Non STEMI LEFT VENTRICLE The Ejection Fraction is 35-40%. The basal to mid inferior wall, inferolateral wall are severely hypokinetic. Remainder of the LV is mildly hypokinetic. GREAT VESSELS The aortic root is normal in size. PERICARDIAL EFFUSION There is no evidence of significant pericardial effusion. Critical Notification Critical Value: No <Conclusion> The basal to mid inferior wall, inferolateral wall are severely hypokinetic. Remainder of the LV is mildly hypokinetic. The Ejection Fraction is 35-40%. Limited TTE for wall motion only. Signed by : Huseyin Gentile, Electronically Approved : 08/04/2018 15:19:42 REASON: sob PROCEDURE: CHEST AP ONLY Indication:SOA TECHNIQUE:Portable AP chest X-ray COMPARISON: 05/31/2018 FINDINGS: Heart is normal in size. Diffuse bilateral interstitial opacities are seen. Lungs are hyperinflated. No focal consolidation. No pneumothorax or large. Effusion. Visualized bony thorax within normal limits. IMPRESSION: COPD. Superimposed atypical/viral infection or interstitial pulmonary edema. Electronically signed by: Sam Fuentes DO (08/04/2018 2:52 AM) [facility] DICTATED and SIGNED BY: SAM FUENTES DO DATE: 08/04/18 0252 Laboratory Tests Test 08/04/18 11:56 08/04/18 13:00 08/04/18 23:35 08/05/18 05:46 Glucose (Fingerstick) 154 mg/dL (70-99) Heparin Anti-Xa Act, Unfractionated 0.22 IU/mL (0.30-0.70) 0.42 IU/mL (0.30-0.70) 0.50 IU/mL (0.30-0.70) Troponin I Quantitative 17.335 ng/mL (0.000-0.055) White Blood Count 4.9 x10^3/uL (4.0-11.0) Red Blood Count 4.05 x10^6/uL (3.50-5.40) Hemoglobin 11.8 g/dL (12.0-15.5) Hematocrit 34.9 % (36.0-47.0) Mean Corpuscular Volume 86 fL (79-100) Mean Corpuscular Hemoglobin 29 pg (25-35) Mean Corpuscular Hemoglobin Concent 34 g/dL (31-37) Red Cell Distribution Width 15.2 % (11.5-14.5) Platelet Count 163 x10^3/uL (140-400) Test 08/05/18 08:12 Glucose (Fingerstick) 90 mg/dL (70-99) Comment Review of Relevant I have reviewed the following items isaias (where applicable) has been applied. Labs Laboratory Tests Test 08/04/18 01:15 08/04/18 01:48 08/04/18 04:10 08/04/18 04:38 White Blood Count 9.7 x10^3/uL (4.0-11.0) Red Blood Count 4.44 x10^6/uL (3.50-5.40) Hemoglobin 12.7 g/dL (12.0-15.5) Hematocrit 39.2 % (36.0-47.0) Mean Corpuscular Volume 88 fL (79-100) Mean Corpuscular Hemoglobin 29 pg (25-35) Mean Corpuscular Hemoglobin Concent 32 g/dL (31-37) Red Cell Distribution Width 15.5 % (11.5-14.5) Platelet Count 228 x10^3/uL (140-400) Neutrophils (%) (Auto) 83 % (31-73) Lymphocytes (%) (Auto) 12 % (24-48) Monocytes (%) (Auto) 4 % (0-9) Eosinophils (%) (Auto) 0 % (0-3) Basophils (%) (Auto) 1 % (0-3) Neutrophils # (Auto) 8.0 x10^3uL (1.8-7.7) Lymphocytes # (Auto) 1.2 x10^3/uL (1.0-4.8) Monocytes # (Auto) 0.4 x10^3/uL (0.0-1.1) Eosinophils # (Auto) 0.0 x10^3/uL (0.0-0.7) Basophils # (Auto) 0.1 x10^3/uL (0.0-0.2) Sodium Level 137 mmol/L (136-145) Potassium Level 3.6 mmol/L (3.5-5.1) Chloride Level 98 mmol/L (98-107) Carbon Dioxide Level 24 mmol/L (21-32) Anion Gap 15 (6-14) Blood Urea Nitrogen 12 mg/dL (7-20) Creatinine 1.3 mg/dL (0.6-1.0) Estimated GFR (Cockcroft-Gault) 40.5 BUN/Creatinine Ratio 9 (6-20) Glucose Level 326 mg/dL (70-99) Lactic Acid Level 3.9 mmol/L (0.4-2.0) Calcium Level 8.5 mg/dL (8.5-10.1) Total Bilirubin 1.7 mg/dL (0.2-1.0) Aspartate Amino Transf (AST/SGOT) 26 U/L (15-37) Alanine Aminotransferase (ALT/SGPT) 16 U/L (14-59) Alkaline Phosphatase 85 U/L (46-116) Troponin I Quantitative 0.690 ng/mL (0.000-0.055) EO-Uzf-W-Type Natriuretic Peptide 01946 pg/mL (0-124) Total Protein 7.4 g/dL (6.4-8.2) Albumin 3.4 g/dL (3.4-5.0) Albumin/Globulin Ratio 0.9 (1.0-1.7) O2 Saturation 92 % (92-99) Arterial Blood pH 7.39 (7.35-7.45) Arterial Blood pCO2 at Patient Temp 37 mmHg (35-46) Arterial Blood pO2 at Patient Temp 63 mmHg (65-108) Arterial Blood HCO3 22 mmol/L (21-28) Arterial Blood Base Excess -3 mmol/L (-3-3) FiO2 40 Urine Collection Type Unknown Urine Color Yellow Urine Clarity Hazy Urine pH 5.0 Urine Specific [place] 1.010 Urine Protein Negative mg/dL (NEG-TRACE) Urine Glucose (UA) Negative mg/dL (NEG) Urine Ketones (Stick) Negative mg/dL (NEG) Urine Blood Trace (NEG) Urine Nitrite Positive (NEG) Urine Bilirubin Negative (NEG) Urine Urobilinogen Dipstick 0.2 mg/dL (0.2 mg/dL) Urine Leukocyte Esterase Moderate (NEG) Urine RBC 1-2 /HPF (0-2) Urine WBC 5-10 /HPF (0-4) Urine Bacteria Many /HPF (0-FEW) Glucose (Fingerstick) 167 mg/dL (70-99) Test 08/04/18 04:50 08/04/18 09:10 08/04/18 11:56 08/04/18 13:00 Lactic Acid Level 2.2 mmol/L (0.4-2.0) Troponin I Quantitative 4.953 ng/mL (0.000-0.055) 13.796 ng/mL (0.000-0.055) 17.335 ng/mL (0.000-0.055) Triglycerides Level 59 mg/dL (0-150) Cholesterol Level 194 mg/dL (0-200) LDL Cholesterol, Calculated 133 mg/dL (0-100) VLDL Cholesterol, Calculated 12 mg/dL (0-40) Non-HDL Cholesterol Calculated 145 mg/dL (0-129) HDL Cholesterol 49 mg/dL (40-60) Cholesterol/HDL Ratio 4.0 Glucose (Fingerstick) 154 mg/dL (70-99) Heparin Anti-Xa Act, Unfractionated 0.22 IU/mL (0.30-0.70) Test 08/04/18 23:35 08/05/18 05:46 08/05/18 08:12 Heparin Anti-Xa Act, Unfractionated 0.42 IU/mL (0.30-0.70) 0.50 IU/mL (0.30-0.70) White Blood Count 4.9 x10^3/uL (4.0-11.0) Red Blood Count 4.05 x10^6/uL (3.50-5.40) Hemoglobin 11.8 g/dL (12.0-15.5) Hematocrit 34.9 % (36.0-47.0) Mean Corpuscular Volume 86 fL (79-100) Mean Corpuscular Hemoglobin 29 pg (25-35) Mean Corpuscular Hemoglobin Concent 34 g/dL (31-37) Red Cell Distribution Width 15.2 % (11.5-14.5) Platelet Count 163 x10^3/uL (140-400) Glucose (Fingerstick) 90 mg/dL (70-99) Laboratory Tests Test 08/04/18 11:56 08/04/18 13:00 08/04/18 23:35 08/05/18 05:46 Glucose (Fingerstick) 154 mg/dL (70-99) Heparin Anti-Xa Act, Unfractionated 0.22 IU/mL (0.30-0.70) 0.42 IU/mL (0.30-0.70) 0.50 IU/mL (0.30-0.70) Troponin I Quantitative 17.335 ng/mL (0.000-0.055) White Blood Count 4.9 x10^3/uL (4.0-11.0) Red Blood Count 4.05 x10^6/uL (3.50-5.40) Hemoglobin 11.8 g/dL (12.0-15.5) Hematocrit 34.9 % (36.0-47.0) Mean Corpuscular Volume 86 fL (79-100) Mean Corpuscular Hemoglobin 29 pg (25-35) Mean Corpuscular Hemoglobin Concent 34 g/dL (31-37) Red Cell Distribution Width 15.2 % (11.5-14.5) Platelet Count 163 x10^3/uL (140-400) Test 08/05/18 08:12 Glucose (Fingerstick) 90 mg/dL (70-99) Microbiology 08/04/18 Blood Culture - Preliminary, Resulted NO GROWTH AFTER 1 DAY Medications Current Medications Furosemide (Lasix) 40 mg 1X ONCE IVP Last administered on 08/04/18at 02:30; Start 08/04/18 at 02:15; Stop 08/04/18 at 02:16; Status DC Ondansetron HCl (Zofran) 4 mg PRN Q8HRS PRN IV NAUSEA/VOMITING; Start 08/04/18 at 03:00; Stop 08/05/18 at 02:59; Status DC Aspirin (Children'S Aspirin) 324 mg 1X ONCE PO ; Start 08/04/18 at 04:30; Stop 08/04/18 at 04:31; Status DC Ceftriaxone Sodium (Rocephin) 1 gm Q24H IVP Last administered on 08/04/18at 04: 39; Start 08/04/18 at 04:30; Stop 08/04/18 at 11:16; Status DC Insulin Human Lispro (HumaLOG) 0-7 UNITS TIDWMEALS SQ ; Start 08/04/18 at 08:00 Dextrose (Dextrose 50%-Water Syringe) 12.5 gm PRN Q15MIN PRN IV SEE COMMENTS; Start 08/04/18 at 04:15 Hydralazine HCl (Apresoline Inj) 10 mg PRN Q6HRS PRN IVP ELEVATED BP, SEE COMMENTS; Start 08/04/18 at 04:15 Heparin Sodium/ Dextrose 500 ml @ 0 mls/hr CONT PRN IV SEE I/O RECORD Last administered on 08/04/18at 06:52; Start 08/04/18 at 06:30 Heparin Sodium (Porcine) (Heparin Sodium) 1,650 unit PRN Q6HRS PRN IV FOR UFH LEVEL LESS THAN 0.2; Start 08/04/18 at 06:30 Aspirin (Ecotrin) 81 mg DAILYWBKFT PO Last administered on 08/05/18at 08:54; Start 08/05/18 at 08:00 Atorvastatin Calcium (Lipitor) 40 mg QHS PO Last administered on 08/04/18at 21: 09; Start 08/04/18 at 21:00 Carvedilol (Coreg) 3.125 mg BIDWMEALS PO Last administered on 08/05/18 08:53; Start 08/04/18 at 17:00 Potassium Chloride (Klor-Con) 20 meq DAILYWBKFT PO Last administered on at 08:52; Start 08/04/18 at 11:00 Ticagrelor (Brilinta) 90 mg BID PO Last administered on 08/05/18 08:53; Start 08/04/18 at 21:00 Lisinopril (Prinivil) 5 mg DAILY PO Last administered on 08/05/18 08:53; Start 08/04/18 at 11:00 Info (Anti-Coagulation Monitoring By Pharmacy) 1 each PRN DAILY PRN MC SEE COMMENTS Last administered on 08/04/18at 13:17; Start 08/04/18 at 10:15 Influenza Virus Vaccine (Afluria Trivalent 1716-4884 Syringe) 0.5 ml ONCE ONCE VAX IM ; Start 08/04/18 at 11:00; Stop 08/04/18 at 11:02; Status DC Albuterol/ Ipratropium (Duoneb) 3 ml RTQID NEB Last administered on 08/05/18at 08:00; Start 08/04/18 at 12:00 Iodixanol (Visipaque 320) 100 ml STK-MED ONCE .ROUTE ; Start 08/04/18 at 15:20; Stop 08/04/18 at 15:21; Status DC Lidocaine HCl (Xylocaine-Mpf 1% 2ml Vial) 2 ml STK-MED ONCE .ROUTE ; Start 08/04 at 15:20; Stop 08/04/18 at 15:21; Status DC Heparin Sodium/ Sodium Chloride 1,000 ml @ As Directed STK-MED ONCE .ROUTE ; Start 08/04/18 at 15:20; Stop 08/04/18 at 15:21; Status DC Lidocaine HCl (Lidocaine 1% 20ml Vial) 20 ml STK-MED ONCE .ROUTE ; Start at 15:27; Stop 08/04/18 at 15:28; Status DC Midazolam HCl (Versed) 2 mg STK-MED ONCE .ROUTE ; Start 08/04/18 at 15:29; Stop 08/04/18 at 15:30; Status DC Fentanyl Citrate (Fentanyl 2ml Vial) 100 mcg STK-MED ONCE .ROUTE ; Start at 15:29; Stop 08/04/18 at 15:30; Status DC Heparin Sodium/ Sodium Chloride (HEPARIN for ARTERIAL LINE FLUSH) 1,000 unit 1X ONCE IART Last administered on 08/04/18at 15:45; Start 08/04/18 at 15:45; Stop 08/04/18 at 15:46; Status DC Heparin Sodium/ Sodium Chloride (HEPARIN for ARTERIAL LINE FLUSH) 1,000 unit 1X ONCE IART Last administered on 08/04/18at 15:45; Start 08/04/18 at 15:45; Stop 08/04/18 at 15:46; Status DC Midazolam HCl (Versed) 2 mg 1X ONCE IV Last administered on 08/04/18at 15:45; Start 08/04/18 at 15:45; Stop 08/04/18 at 15:46; Status DC Fentanyl Citrate (Fentanyl 2ml Vial) 100 mcg 1X ONCE IV Last administered on at 15:45; Start 08/04/18 at 15:45; Stop 08/04/18 at 15:46; Status DC Iohexol (Omnipaque 300 Mg/ml) 100 ml 1X ONCE IART Last administered on at 15:45; Start 08/04/18 at 15:45; Stop 08/04/18 at 15:46; Status DC Lidocaine HCl (Lidocaine 1% 20ml Vial) 20 ml 1X ONCE INJ Last administered on 08/04/18 15:45; Start 08/04/18 at 15:45; Stop 08/04/18 at 15:46; Status DC Info (CONTRAST GIVEN -- Rx MONITORING) 1 each PRN DAILY PRN MC SEE COMMENTS; Start 08/04/18 at 15:45; Stop 08/06/18 at 15:44 Furosemide (Lasix) 40 mg 1X ONCE IVP Last administered on 08/04/18at 16:40; Start 08/04/18 at 16:45; Stop 08/04/18 at 16:46; Status DC Furosemide (Lasix) 20 mg 1X ONCE IVP Last administered on 08/05/18at 08:54; Start 08/05/18 at 08:00; Stop 08/05/18 at 08:01; Status DC Active Scripts Active Furosemide 40 Mg Tablet 40 Mg PO DAILY 30 Days Klor-Con M20 (Potassium Chloride) 20 Meq Tab.er.prt 20 Meq PO DAILYWBKFT Aspirin Ec (Aspirin) 81 Mg Tablet.dr 81 Mg PO DAILYWBKFT 30 Days Lisinopril 5 Mg Tablet 5 Mg PO DAILY 30 Days Carvedilol (Carvedilol) 3.125 Mg Tablet 3.125 Mg PO BIDWMEALS 30 Days Atorvastatin Calcium 40 Mg Tablet 40 Mg PO QHS 30 Days Brilinta (Ticagrelor) 90 Mg Tablet 90 Mg PO BID 14 Days Vitals/I & O Vital Sign - Last 24 Hours 08/04/18 08/04/18 08/04/18 08/04/18 12:00 12:00 13:00 14:00 Temp 98.3 98.3 Resp 22 B/P (MAP) 120/59 (79) 134/59 (84) 140/68 (92) Pulse Ox 97 O2 Delivery Bi-pap Nasal Cannula Nasal Cannula Nasal Cannula O2 Flow Rate 4.0 4.0 4.0 08/04/18 08/04/18 08/04/18 08/04/18 15:00 15:45 15:54 16:00 Pulse 71 Resp 22 24 22 B/P (MAP) 134/72 (92) 145/69 (94) Pulse Ox 95 94 96 O2 Delivery Nasal Cannula Nasal Cannula Nasal Cannula Nasal Cannula O2 Flow Rate 4.0 3.0 3.0 4.0 08/04/18 08/04/18 08/04/18 08/04/18 16:00 16:30 16:35 17:00 Temp 98.6 98.6 Resp 20 20 B/P (MAP) 137/70 (92) 146/62 (90) Pulse Ox 99 98 O2 Delivery Bi-pap Nasal Cannula Nasal Cannula Nasal Cannula O2 Flow Rate 4.0 4.0 4.0 08/04/18 08/04/18 08/04/18 08/04/18 18:00 18:43 19:00 19:50 Pulse 75 82 Resp 20 18 B/P (MAP) 99/79 (86) 99/79 161/71 (101) Pulse Ox 97 O2 Delivery Nasal Cannula Nasal Cannula Nasal Cannula O2 Flow Rate 4.0 4.0 2.0 08/04/18 08/04/18 08/04/18 08/04/18 20:00 20:12 21:00 22:00 Temp 98.6 98.6 Pulse 69 65 58 Resp 20 20 16 B/P (MAP) 117/51 (73) 112/61 (78) 109/55 (73) Pulse Ox 98 99 100 100 O2 Delivery Nasal Cannula Nasal Cannula Nasal Cannula Nasal Cannula O2 Flow Rate 2.0 3.0 2.0 2.0 08/04/18 08/04/18 08/05/18 08/05/18 23:00 23:33 00:00 01:00 Temp 98.4 98.4 Pulse 57 59 56 Resp 18 18 16 B/P (MAP) 120/53 (75) 111/57 (75) 89/46 (60) Pulse Ox 95 96 94 O2 Delivery Nasal Cannula Nasal Cannula Nasal Cannula Nasal Cannula O2 Flow Rate 1.0 1.0 1.0 1.0 08/05/18 08/05/18 08/05/18 08/05/18 02:00 03:00 03:57 04:00 Temp 98.6 98.6 Pulse 56 62 54 Resp 18 20 20 B/P (MAP) 96/43 (60) 94/44 (61) 116/54 (74) Pulse Ox 95 96 97 O2 Delivery Nasal Cannula Nasal Cannula Nasal Cannula Nasal Cannula O2 Flow Rate 1.0 1.0 1.0 1.0 08/05/18 08/05/18 08/05/18 08/05/18 05:00 06:00 08:53 08:53 Pulse 54 55 87 74 Resp 20 20 B/P (MAP) 113/55 (74) 92/45 (61) 126/61 126/61 Pulse Ox 96 95 O2 Delivery Nasal Cannula Nasal Cannula O2 Flow Rate 1.0 1.0 08/05/18 09:04 Pulse Ox 97 O2 Delivery Nasal Cannula O2 Flow Rate 1.0 Intake and Output 08/04/18 08/04/18 08/05/18 15:00 23:00 07:00 Intake Total 378 ml 216 ml Output Total 600 ml 850 ml 100 ml Balance -600 ml -472 ml 116 ml LEONEL THAKUR MD Aug 05, 2018 11:52
[2018-08-05] MEDS ORDERED: DEXTROSE 50% 25 GM / 50ML DISP.SYRIN. IV PRN (14:15)
[2018-08-05] MEDS: ATORVASTATIN CALCIUM 40 MG TABLET. PO SCH (21:09)
[2018-08-06 00:09] LABS: HEMOGLOBIN A1C 5.7 % (4.8-5.6)
--- NOTE | 2018-08-06 01:35 | NUR ---
RN paged Dr. Walsh for PRN breathing treatments that patient is requesting due to shortness of air and inability to take deep breaths. Orders were received and implemented at that time. RN will continue to monitor closely.
[2018-08-06] MEDS ORDERED: ALBUTEROL SULFATE 2.5 MG/3 ML NEBU. NEB PRN (02:00)
--- NOTE | 2018-08-06 02:25 | NUR ---
RN paged Dr. Monae due to patients oxygen saturation in the high 70's to 80's and patient complained of shortness of air and unable to take deep breaths. Orders were received and implemented at that time. RN will continue to monitor closely.
[2018-08-06 03:30] VITALS: BP 129/59
[2018-08-06] MEDS: IPRATRPIUM/ALBUTEROL 0.5/2.5MG 3 ML NEBU. NEB SCH ×4 (07:45→20:28)
[2018-08-06 08:00] VITALS: BP 113/50
[2018-08-06] MEDS: INSULIN LISPRO 300 UNITS/3 ML INSULN.PEN. SQ SCH ×3 (08:00→17:00)
[2018-08-06 08:08] LABS: BASE EXCESS ABG 0 mmol/L (-3-3); HCO3 ABG 24 mmol/L (21-28); PCO2 ABG 36 mmHg (35-46); PO2 ABG 84 mmHg (65-108); SAT O2 ABG 96 % (92-99)
[2018-08-06 08:15] LABS: FIO2 ABG 35
[2018-08-06] MEDS: ASPIRIN ENTERIC COATED 81 MG TABLET.DR. PO SCH (08:58)
[2018-08-06] MEDS: LISINOPRIL 5 MG TABLET. PO SCH (08:58)
[2018-08-06] MEDS: TICAGRELOR 90 MG TABLET. PO SCH ×2 (08:59→20:46)
[2018-08-06] MEDS: POTASSIUM CHLORIDE 20 MEQ TABLET.ER. PO SCH (08:59)
[2018-08-06] MEDS: CARVEDILOL 3.125 MG TABLET. PO SCH (09:00)
--- NOTE | 2018-08-06 10:39 | PDOC ---
REUBEN SANTANA [employer] 08/06/18 1039: CARDIO Progress Notes Date and Time Date of Service 08/06/2018 Time of Evaluation 1020 Subjective Subjective: No Chest Pain, No shortness of breath, No Palpitations Vitals Vitals Vital Signs Date Time Temp Pulse Resp B/P (MAP) Pulse Ox O2 Delivery O2 Flow Rate FiO2 08/06/18 09:00 58 137/71 08/06/18 08:00 Bi-pap 08/06/18 08:00 99.3 20 98 99.3 08/06/18 02:06 3.0 Weight Weight [ ] Input and Output Intake and Output Intake and Output 08/06/18 06:59 Intake Total 1880 ml Output Total 600 ml Balance 1280 ml Intake Oral 1850 ml IV Total 30 ml Output Urine Total 600 ml # Bowel Movements 1 Laboratory Labs Laboratory Tests Test 08/05/18 12:36 08/05/18 17:25 08/05/18 21:33 08/06/18 07:56 Glucose (Fingerstick) 132 mg/dL (70-99) 131 mg/dL (70-99) 143 mg/dL (70-99) 107 mg/dL (70-99) Test 08/06/18 08:03 O2 Saturation 96 % (92-99) Arterial Blood pH 7.44 (7.35-7.45) Arterial Blood pCO2 at Patient Temp 36 mmHg (35-46) Arterial Blood pO2 at Patient Temp 84 mmHg (65-108) Arterial Blood HCO3 24 mmol/L (21-28) Arterial Blood Base Excess 0 mmol/L (-3-3) FiO2 35 Microbiology Micro Microbiology 08/04/18 Blood Culture - Preliminary, Resulted NO GROWTH AFTER 2 DAYS 08/04/18 Urine Culture - Preliminary, Resulted 08/04/18 Urine Culture Result 1 (GIL) - Preliminary, Resulted Physical Exam HEENT: Neck Supple W Full Motion Chest: Symmetric LUNGS: Other (basilar crackles) Heart: RRR (junctional) Abdomen: Soft N/T Extremities: No Calf Tenderness Neurology: alert, oriented, follow commands Assessment Assessment 1. NSTEMI: CP free. Recent LHC with patent RCA stents. 2. Acute on chronic systolic CHF 3. ICM: 35-40% appears compensated 4. Arrhythmia: currently junctional lowest in the upper 40s. no pauses 5. HTN: controlled Recommendations 1. Check BMP and Mg. Hold BB for now. Recheck EKG 2. Lasix therapy. Continue DAPT. Replace K as warranted 3. Bipap PRN 4.Secondary prevention measures. Consider entresto as outpt. Supportive care. RITA DAVILA MD 08/06/18 2243: CARDIO Progress Notes Plan Plan Pt. seen and examined.Agree with above PUMPMAN note. Continue diuresis. Stop b-suzan . Supportive care. REUBEN SANTANA APRN Aug 06, 2018 10:39 RITA DAVILA MD Aug 06, 2018 22:43
[2018-08-06 11:47] VITALS: BP 110/55
--- NOTE | 2018-08-06 11:53 | EKG ---
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
[2018-08-06 12:21] LABS: CALCIUM 7.9 mg/dL (8.5-10.1); CREATININE 1.3 mg/dL (0.6-1.0); GFR 40.5; MAGNESIUM 2.1 mg/dL (1.8-2.4); POTASSIUM 3.4 mmol/L (3.5-5.1)
--- NOTE | 2018-08-06 14:49 | PDOC ---
PULMONARY PROGRESS NOTES Subjective soa last night needing BIPAP CATH C/W CHF Vitals Vital Signs Date Time Temp Pulse Resp B/P (MAP) Pulse Ox O2 Delivery O2 Flow Rate FiO2 08/06/18 11:57 98 Nasal Cannula 4.0 08/06/18 11:47 98.8 49 24 110/55 (73) 98.8 General: Alert, No acute distress Lungs: Other (decrease bases) Cardiovascular: S1 Abdomen: Soft Neuro Exam: Alert Extremities: No Edema Skin: Warm Labs Laboratory Tests Test 08/04/18 23:35 08/05/18 05:46 08/05/18 08:12 08/05/18 12:36 Heparin Anti-Xa Act, Unfractionated 0.42 IU/mL (0.30-0.70) 0.50 IU/mL (0.30-0.70) White Blood Count 4.9 x10^3/uL (4.0-11.0) Red Blood Count 4.05 x10^6/uL (3.50-5.40) Hemoglobin 11.8 g/dL (12.0-15.5) Hematocrit 34.9 % (36.0-47.0) Mean Corpuscular Volume 86 fL (79-100) Mean Corpuscular Hemoglobin 29 pg (25-35) Mean Corpuscular Hemoglobin Concent 34 g/dL (31-37) Red Cell Distribution Width 15.2 % (11.5-14.5) Platelet Count 163 x10^3/uL (140-400) Hemoglobin A1c 5.7 % (4.8-5.6) Glucose (Fingerstick) 90 mg/dL (70-99) 132 mg/dL (70-99) Test 08/05/18 17:25 08/05/18 21:33 08/06/18 07:56 08/06/18 08:03 Glucose (Fingerstick) 131 mg/dL (70-99) 143 mg/dL (70-99) 107 mg/dL (70-99) O2 Saturation 96 % (92-99) Arterial Blood pH 7.44 (7.35-7.45) Arterial Blood pCO2 at Patient Temp 36 mmHg (35-46) Arterial Blood pO2 at Patient Temp 84 mmHg (65-108) Arterial Blood HCO3 24 mmol/L (21-28) Arterial Blood Base Excess 0 mmol/L (-3-3) FiO2 35 Test 08/06/18 11:25 08/06/18 11:29 Sodium Level 133 mmol/L (136-145) Potassium Level 3.4 mmol/L (3.5-5.1) Chloride Level 96 mmol/L (98-107) Carbon Dioxide Level 27 mmol/L (21-32) Anion Gap 10 (6-14) Blood Urea Nitrogen 22 mg/dL (7-20) Creatinine 1.3 mg/dL (0.6-1.0) Estimated GFR (Cockcroft-Gault) 40.5 Glucose Level 173 mg/dL (70-99) Calcium Level 7.9 mg/dL (8.5-10.1) Magnesium Level 2.1 mg/dL (1.8-2.4) Glucose (Fingerstick) 179 mg/dL (70-99) Laboratory Tests Test 08/05/18 17:25 08/05/18 21:33 08/06/18 07:56 08/06/18 08:03 Glucose (Fingerstick) 131 mg/dL (70-99) 143 mg/dL (70-99) 107 mg/dL (70-99) O2 Saturation 96 % (92-99) Arterial Blood pH 7.44 (7.35-7.45) Arterial Blood pCO2 at Patient Temp 36 mmHg (35-46) Arterial Blood pO2 at Patient Temp 84 mmHg (65-108) Arterial Blood HCO3 24 mmol/L (21-28) Arterial Blood Base Excess 0 mmol/L (-3-3) FiO2 35 Test 08/06/18 11:25 08/06/18 11:29 Sodium Level 133 mmol/L (136-145) Potassium Level 3.4 mmol/L (3.5-5.1) Chloride Level 96 mmol/L (98-107) Carbon Dioxide Level 27 mmol/L (21-32) Anion Gap 10 (6-14) Blood Urea Nitrogen 22 mg/dL (7-20) Creatinine 1.3 mg/dL (0.6-1.0) Estimated GFR (Cockcroft-Gault) 40.5 Glucose Level 173 mg/dL (70-99) Calcium Level 7.9 mg/dL (8.5-10.1) Magnesium Level 2.1 mg/dL (1.8-2.4) Glucose (Fingerstick) 179 mg/dL (70-99) Medications Active Scripts Medications Dose Route/Sig Max Daily Dose Days Date Category Furosemide 40 Mg Tablet 40 Mg PO DAILY 30 06/02/18 Rx Klor-Con M20 (Potassium Chloride) 20 Meq Tab.er.prt 20 Meq PO DAILYWBKFT 06/02/18 Rx Aspirin Ec (Aspirin) 81 Mg Tablet. 81 Mg PO DAILYWBKFT 30 06/02/18 Rx Lisinopril 5 Mg Tablet 5 Mg PO DAILY 30 06/02/18 Rx Carvedilol (Carvedilol) 3.125 Mg Tablet 3.125 Mg PO BIDWMEALS 30 06/02/18 Rx Atorvastatin Calcium 40 Mg Tablet 40 Mg PO QHS 30 06/02/18 Rx Brilinta (Ticagrelor) 90 Mg Tablet 90 Mg PO BID 14 06/02/18 Rx Impression . 1. Acute hypoxic respiratory failure secondary to [id number] systolic heart failure. 2. The patient with ischemic cardiomyopathy with an EF of 25%. 3. Recent inferoposterior ST elevation myocardial infarction in May of this year, status post percutaneous coronary intervention/drug-eluting stent to mid RCA.Now with another NSTMI 4. Repeat left heart catheterization with elevated filling pressures on the left side. patent stents to RCA 5. Suspected underlying chronic obstructive pulmonary disease with 40 years of tobacco use. 6. No clinical evidence to suggest pneumonia. Plan . 1. prn BiPAP. Continue with nasal cannula 2. Diuresis per cardiology 3. Follow Cardiology's recommendations. 4. f/u cxr 5. Continue bronchodilators. 6. Antibiotics discontinued 7. Discussed with RN and GARRETT WARD MD Aug 06, 2018 14:49
[2018-08-06 14:57] VITALS: BP 140/62
[2018-08-06] MEDS: FUROSEMIDE 40 MG/4 ML VIAL. IVP SCH (15:12)
[2018-08-06] MEDS ORDERED: POTASSIUM CHLORIDE 20 MEQ TABLET.ER. PO ONE (15:15)
[2018-08-06] MEDS: cefTRIAXone IV Push 1 GM VIAL. IVP SCH (15:19)
[2018-08-06] MEDS: ENOXAPARIN 40 MG/0.4 ML SYRINGE. SQ SCH (15:27)
--- NOTE | 2018-08-06 15:29 | NUR ---
SS following up with discharge planning. Pt currently on four liters of oxygen. Discharge disposition remains home at this time. SS will continue to follow for pending discharge needs.
--- NOTE | 2018-08-06 15:31 | PDOC ---
PROGRESS NOTES Chief Complaint Chief Complaint acute hypoxic respiratory failure from acute pulmonary edema, acute systolic CHF STEMI: [facility] with 3VD. TROP > 17, S/P PCI/RAMÍREZ to RCA. CHF, with EF 25% SEVERE small vessel disease. DIABETES 2 UTI, History of Present Illness History of Present Illness in ICU prn BIPAP check CXR now LAsix BID pulm and CV followign, full code Vitals Vitals Vital Signs Date Time Temp Pulse Resp B/P (MAP) Pulse Ox O2 Delivery O2 Flow Rate FiO2 08/06/18 14:57 98.2 52 140/62 (88) 100 Nasal Cannula 4.0 98.2 08/06/18 11:47 24 Physical Exam General: Alert, Oriented X3, Cooperative, No acute distress, mild distress Heart: Regular rate, Normal S1, Normal S2 Lungs: Other (decrease bases, left decreased from right, and decreased egophony) Abdomen: Normal bowel sounds, Soft, No tenderness Extremities: No cyanosis, Normal pulses, Other (1+ bilateral LE edema ) Skin: No significant lesion Labs LABS Laboratory Tests Test 08/05/18 17:25 08/05/18 21:33 08/06/18 07:56 08/06/18 08:03 Glucose (Fingerstick) 131 mg/dL (70-99) 143 mg/dL (70-99) 107 mg/dL (70-99) O2 Saturation 96 % (92-99) Arterial Blood pH 7.44 (7.35-7.45) Arterial Blood pCO2 at Patient Temp 36 mmHg (35-46) Arterial Blood pO2 at Patient Temp 84 mmHg (65-108) Arterial Blood HCO3 24 mmol/L (21-28) Arterial Blood Base Excess 0 mmol/L (-3-3) FiO2 35 Test 08/06/18 11:25 08/06/18 11:29 Sodium Level 133 mmol/L (136-145) Potassium Level 3.4 mmol/L (3.5-5.1) Chloride Level 96 mmol/L (98-107) Carbon Dioxide Level 27 mmol/L (21-32) Anion Gap 10 (6-14) Blood Urea Nitrogen 22 mg/dL (7-20) Creatinine 1.3 mg/dL (0.6-1.0) Estimated GFR (Cockcroft-Gault) 40.5 Glucose Level 173 mg/dL (70-99) Calcium Level 7.9 mg/dL (8.5-10.1) Magnesium Level 2.1 mg/dL (1.8-2.4) Glucose (Fingerstick) 179 mg/dL (70-99) Review of Systems Review of Systems dyspnea with anxiety, mild chest pain, Assessment and Plan Assessmemt and Plan CXR now, dyspnea worse, try CPAP, Comment Review of Relevant I have reviewed the following items isaias (where applicable) has been applied. Labs Laboratory Tests Test 08/04/18 23:35 08/05/18 05:46 08/05/18 08:12 08/05/18 12:36 Heparin Anti-Xa Act, Unfractionated 0.42 IU/mL (0.30-0.70) 0.50 IU/mL (0.30-0.70) White Blood Count 4.9 x10^3/uL (4.0-11.0) Red Blood Count 4.05 x10^6/uL (3.50-5.40) Hemoglobin 11.8 g/dL (12.0-15.5) Hematocrit 34.9 % (36.0-47.0) Mean Corpuscular Volume 86 fL (79-100) Mean Corpuscular Hemoglobin 29 pg (25-35) Mean Corpuscular Hemoglobin Concent 34 g/dL (31-37) Red Cell Distribution Width 15.2 % (11.5-14.5) Platelet Count 163 x10^3/uL (140-400) Hemoglobin A1c 5.7 % (4.8-5.6) Glucose (Fingerstick) 90 mg/dL (70-99) 132 mg/dL (70-99) Test 08/05/18 17:25 08/05/18 21:33 08/06/18 07:56 08/06/18 08:03 Glucose (Fingerstick) 131 mg/dL (70-99) 143 mg/dL (70-99) 107 mg/dL (70-99) O2 Saturation 96 % (92-99) Arterial Blood pH 7.44 (7.35-7.45) Arterial Blood pCO2 at Patient Temp 36 mmHg (35-46) Arterial Blood pO2 at Patient Temp 84 mmHg (65-108) Arterial Blood HCO3 24 mmol/L (21-28) Arterial Blood Base Excess 0 mmol/L (-3-3) FiO2 35 Test 08/06/18 11:25 08/06/18 11:29 Sodium Level 133 mmol/L (136-145) Potassium Level 3.4 mmol/L (3.5-5.1) Chloride Level 96 mmol/L (98-107) Carbon Dioxide Level 27 mmol/L (21-32) Anion Gap 10 (6-14) Blood Urea Nitrogen 22 mg/dL (7-20) Creatinine 1.3 mg/dL (0.6-1.0) Estimated GFR (Cockcroft-Gault) 40.5 Glucose Level 173 mg/dL (70-99) Calcium Level 7.9 mg/dL (8.5-10.1) Magnesium Level 2.1 mg/dL (1.8-2.4) Glucose (Fingerstick) 179 mg/dL (70-99) Laboratory Tests Test 08/05/18 17:25 08/05/18 21:33 08/06/18 07:56 08/06/18 08:03 Glucose (Fingerstick) 131 mg/dL (70-99) 143 mg/dL (70-99) 107 mg/dL (70-99) O2 Saturation 96 % (92-99) Arterial Blood pH 7.44 (7.35-7.45) Arterial Blood pCO2 at Patient Temp 36 mmHg (35-46) Arterial Blood pO2 at Patient Temp 84 mmHg (65-108) Arterial Blood HCO3 24 mmol/L (21-28) Arterial Blood Base Excess 0 mmol/L (-3-3) FiO2 35 Test 08/06/18 11:25 08/06/18 11:29 Sodium Level 133 mmol/L (136-145) Potassium Level 3.4 mmol/L (3.5-5.1) Chloride Level 96 mmol/L (98-107) Carbon Dioxide Level 27 mmol/L (21-32) Anion Gap 10 (6-14) Blood Urea Nitrogen 22 mg/dL (7-20) Creatinine 1.3 mg/dL (0.6-1.0) Estimated GFR (Cockcroft-Gault) 40.5 Glucose Level 173 mg/dL (70-99) Calcium Level 7.9 mg/dL (8.5-10.1) Magnesium Level 2.1 mg/dL (1.8-2.4) Glucose (Fingerstick) 179 mg/dL (70-99) Microbiology 08/04/18 Blood Culture - Preliminary, Resulted NO GROWTH AFTER 2 DAYS 08/04/18 Urine Culture - Preliminary, Resulted 08/04/18 Urine Culture Result 1 (GIL) - Preliminary, Resulted Medications Current Medications Furosemide (Lasix) 40 mg 1X ONCE IVP Last administered on 08/04/18at 02:30; Start 08/04/18 at 02:15; Stop 08/04/18 at 02:16; Status DC Ondansetron HCl (Zofran) 4 mg PRN Q8HRS PRN IV NAUSEA/VOMITING; Start 08/04/18 at 03:00; Stop 08/05/18 at 02:59; Status DC Aspirin (Children'S Aspirin) 324 mg 1X ONCE PO ; Start 08/04/18 at 04:30; Stop 08/04/18 at 04:31; Status DC Ceftriaxone Sodium (Rocephin) 1 gm Q24H IVP Last administered on 08/04/18at 04: 39; Start 08/04/18 at 04:30; Stop 08/04/18 at 11:16; Status DC Insulin Human Lispro (HumaLOG) 0-7 UNITS TIDWMEALS SQ ; Start 08/04/18 at 08:00 ; Stop 08/05/18 at 15:13; Status DC Dextrose (Dextrose 50%-Water Syringe) 12.5 gm PRN Q15MIN PRN IV SEE COMMENTS; Start 08/04/18 at 04:15; Status Cancel Hydralazine HCl (Apresoline Inj) 10 mg PRN Q6HRS PRN IVP ELEVATED BP, SEE COMMENTS; Start 08/04/18 at 04:15 Heparin Sodium/ Dextrose 500 ml @ 0 mls/hr CONT PRN IV SEE I/O RECORD Last administered on 08/04/18at 06:52; Start 08/04/18 at 06:30; Stop 08/05/18 at 15:13 ; Status DC Heparin Sodium (Porcine) (Heparin Sodium) 1,650 unit PRN Q6HRS PRN IV FOR UFH LEVEL LESS THAN 0.2; Start 08/04/18 at 06:30; Stop 08/05/18 at 15:13; Status DC Aspirin (Ecotrin) 81 mg DAILYWBKFT PO Last administered on 08/06/18at 08:58; Start 08/05/18 at 08:00 Atorvastatin Calcium (Lipitor) 40 mg QHS PO Last administered on 08/05/18 21: 09; Start 08/04/18 at 21:00 Carvedilol (Coreg) 3.125 mg BIDWMEALS PO Last administered on 08/06/18at 09:00; Start 08/04/18 at 17:00; Stop 08/06/18 at 14:57; Status DC Potassium Chloride (Klor-Con) 20 meq DAILYWBKFT PO Last administered on at 08:59; Start 08/04/18 at 11:00 Ticagrelor (Brilinta) 90 mg BID PO Last administered on 08/06/18 08:59; Start 08/04/18 at 21:00 Lisinopril (Prinivil) 5 mg DAILY PO Last administered on 08/06/18 08:58; Start 08/04/18 at 11:00 Info (Anti-Coagulation Monitoring By Pharmacy) 1 each PRN DAILY PRN MC SEE COMMENTS Last administered on 08/04/18at 13:17; Start 08/04/18 at 10:15; Stop at 15:13; Status DC Influenza Virus Vaccine (Afluria Trivalent [id number] Syringe) 0.5 ml ONCE ONCE VAX IM Last administered on 08/05/18at 17:07; Start 08/04/18 at 11:00; Stop 05/13 at 11:02; Status DC Albuterol/ Ipratropium (Duoneb) 3 ml RTQID NEB Last administered on 08/06/18at 15:20; Start 08/04/18 at 12:00 Iodixanol (Visipaque 320) 100 ml STK-MED ONCE .ROUTE ; Start 08/04/18 at 15:20; Stop 08/04/18 at 15:21; Status DC Lidocaine HCl (Xylocaine-Mpf 1% 2ml Vial) 2 ml STK-MED ONCE .ROUTE ; Start 08/04 at 15:20; Stop 08/04/18 at 15:21; Status DC Heparin Sodium/ Sodium Chloride 1,000 ml @ As Directed STK-MED ONCE .ROUTE ; Start 08/04/18 at 15:20; Stop 08/04/18 at 15:21; Status DC Lidocaine HCl (Lidocaine 1% 20ml Vial) 20 ml STK-MED ONCE .ROUTE ; Start at 15:27; Stop 08/04/18 at 15:28; Status DC Midazolam HCl (Versed) 2 mg STK-MED ONCE .ROUTE ; Start 08/04/18 at 15:29; Stop 08/04/18 at 15:30; Status DC Fentanyl Citrate (Fentanyl 2ml Vial) 100 mcg STK-MED ONCE .ROUTE ; Start at 15:29; Stop 08/04/18 at 15:30; Status DC Heparin Sodium/ Sodium Chloride (HEPARIN for ARTERIAL LINE FLUSH) 1,000 unit 1X ONCE IART Last administered on 08/04/18at 15:45; Start 08/04/18 at 15:45; Stop 08/04/18 at 15:46; Status DC Heparin Sodium/ Sodium Chloride (HEPARIN for ARTERIAL LINE FLUSH) 1,000 unit 1X ONCE IART Last administered on 08/04/18at 15:45; Start 08/04/18 at 15:45; Stop 08/04/18 at 15:46; Status DC Midazolam HCl (Versed) 2 mg 1X ONCE IV Last administered on 08/04/18at 15:45; Start 08/04/18 at 15:45; Stop 08/04/18 at 15:46; Status DC Fentanyl Citrate (Fentanyl 2ml Vial) 100 mcg 1X ONCE IV Last administered on at 15:45; Start 08/04/18 at 15:45; Stop 08/04/18 at 15:46; Status DC Iohexol (Omnipaque 300 Mg/ml) 100 ml 1X ONCE IART Last administered on at 15:45; Start 08/04/18 at 15:45; Stop 08/04/18 at 15:46; Status DC Lidocaine HCl (Lidocaine 1% 20ml Vial) 20 ml 1X ONCE INJ Last administered on 08/04/18at 15:45; Start 08/04/18 at 15:45; Stop 08/04/18 at 15:46; Status DC Info (CONTRAST GIVEN -- Rx MONITORING) 1 each PRN DAILY PRN MC SEE COMMENTS; Start 08/04/18 at 15:45; Stop 08/06/18 at 15:44 Furosemide (Lasix) 40 mg 1X ONCE IVP Last administered on 3/12/19at 16:40; Start 08/04/18 at 16:45; Stop 08/04/18 at 16:46; Status DC Furosemide (Lasix) 20 mg 1X ONCE IVP Last administered on 08/05/18at 08:54; Start 08/05/18 at 08:00; Stop 08/05/18 at 08:01; Status DC Insulin Human Lispro (HumaLOG) 0-5 UNITS TIDWMEALS SQ Last administered on 08/06at 12:33; Start 08/05/18 at 17:00 Dextrose (Dextrose 50%-Water Syringe) 12.5 gm PRN Q15MIN PRN IV SEE COMMENTS; Start 08/05/18 at 14:15 Albuterol Sulfate (Ventolin Neb Soln) 2.5 mg PRN Q2HR PRN NEB SHORTNESS OF BREATH Last administered on 08/06/18at 02:08; Start 08/06/18 at 02:00 Ceftriaxone Sodium (Rocephin) 1 gm Q24H IVP ; Start 08/06/18 at 15:00 Furosemide (Lasix) 40 mg BID92 IVP ; Start 08/06/18 at 15:00 Enoxaparin Sodium (Lovenox Per Pharmacy Prophylaxis Dosing) 1 each PRN DAILY PRN MC SEE COMMENTS; Start 08/06/18 at 15:15 Enoxaparin Sodium (Lovenox 40mg Syringe) 40 mg Q24H SQ ; Start 08/06/18 at 16:00 Potassium Chloride (Klor-Con) 20 meq 1X ONCE PO ; Start 08/06/18 at 15:15; Stop 08/06/18 at 15:16; Status DC Active Scripts Active Furosemide 40 Mg Tablet 40 Mg PO DAILY 30 Days Klor-Con M20 (Potassium Chloride) 20 Meq Tab.er.prt 20 Meq PO DAILYWBKFT Aspirin Ec (Aspirin) 81 Mg Tablet.dr 81 Mg PO DAILYWBKFT 30 Days Lisinopril 5 Mg Tablet 5 Mg PO DAILY 30 Days Carvedilol (Carvedilol) 3.125 Mg Tablet 3.125 Mg PO BIDWMEALS 30 Days Atorvastatin Calcium 40 Mg Tablet 40 Mg PO QHS 30 Days Brilinta (Ticagrelor) 90 Mg Tablet 90 Mg PO BID 14 Days Vitals/I & O Vital Sign - Last 24 Hours 08/05/18 08/05/18 08/05/18 08/05/18 15:35 16:24 17:27 19:33 Temp 99.8 99.8 Pulse 55 55 Resp 16 B/P (MAP) 109/54 (72) 108/66 Pulse Ox 96 97 O2 Delivery Nasal Cannula Nasal Cannula Nasal Cannula O2 Flow Rate 1.0 1.5 1.0 08/05/18 08/05/18 08/05/18 08/06/18 19:45 19:55 23:53 02:06 Temp 98.2 99.6 98.2 99.6 Pulse 54 64 Resp 20 20 B/P (MAP) 105/42 (63) 145/61 (89) Pulse Ox 99 96 96 O2 Delivery Nasal Cannula Nasal Cannula Nasal Cannula Nasal Cannula O2 Flow Rate 2.0 2.0 2.0 3.0 08/06/18 08/06/18 08/06/18 08/06/18 02:42 03:30 05:10 07:45 Temp 97.3 97.3 Pulse 59 Resp 22 B/P (MAP) 129/59 (82) Pulse Ox 95 96 95 97 O2 Delivery BiPAP/CPAP BiPAP/CPAP BiPAP/CPAP BiPAP/CPAP 08/06/18 08/06/18 08/06/18 08/06/18 08:00 08:00 08:58 09:00 Temp 99.3 99.3 Pulse 50 58 58 Resp 20 B/P (MAP) 113/50 (71) 137/71 137/71 Pulse Ox 98 O2 Delivery BiPAP/CPAP Bi-pap 08/06/18 08/06/18 08/06/18 11:47 11:57 14:57 Temp 98.8 98.2 98.8 98.2 Pulse 49 52 Resp 24 B/P (MAP) 110/55 (73) 140/62 (88) Pulse Ox 99 98 100 O2 Delivery Nasal Cannula Nasal Cannula Nasal Cannula O2 Flow Rate 4.0 4.0 4.0 Intake and Output 08/05/18 08/05/18 08/06/18 15:00 23:00 07:00 Intake Total 1680 ml 200 ml Output Total 200 ml 100 ml 300 ml Balance 1480 ml -100 ml -100 ml CARLOS ENRIQUE GZUMAN MD Aug 06, 2018 15:31
[2018-08-06 20:07] VITALS: BP 108/51
[2018-08-06] MEDS: ATORVASTATIN CALCIUM 40 MG TABLET. PO SCH (20:46)
[2018-08-06] MEDS ORDERED: FUROSEMIDE 40 MG/4 ML VIAL. IVP ONE (21:00)
[2018-08-06 23:41] VITALS: BP 114/54
[2018-08-07] VITALS (8 sets, daily range): BP systolic 104–135; BP diastolic 51–66
[2018-08-07 05:20] LABS: BASO % 0 % (0-3); EOS % 0 % (0-3); HEMATOCRIT 33.1 % (36.0-47.0); HEMOGLOBIN 11.2 g/dL (12.0-15.5); LYMPH % 25 % (24-48); MEAN CORPUSCULAR HEMOGLOBIN 29 pg (25-35); MEAN CORPUSCULAR HGB CONC 34 g/dL (31-37); MEAN CORPUSCULAR VOLUME 86 fL (79-100); MONO # 0.3 x10^3/uL (0.0-1.1); MONO % 8 % (0-9); NEUT # 2.7 x10^3uL (1.8-7.7); NEUT % 66 % (31-73); PLATELET COUNT 159 x10^3/uL (140-400); RED BLOOD COUNT 3.87 x10^6/uL (3.50-5.40); RED CELL DISTRIBUTION WIDTH 14.9 % (11.5-14.5)
[2018-08-07 05:35] LABS: ALBUMIN 2.9 g/dL (3.4-5.0); ALBUMIN/GLOBULIN RATIO 0.8 (1.0-1.7); CALCIUM 8.2 mg/dL (8.5-10.1); CREATININE 1.2 mg/dL (0.6-1.0); GFR 44.4; POTASSIUM 3.6 mmol/L (3.5-5.1); TOTAL BILIRUBIN 0.8 mg/dL (0.2-1.0); TOTAL PROTEIN 6.5 g/dL (6.4-8.2)
--- NOTE | 2018-08-07 07:44 | RAD ---
Portable chest, 08/06/2018: HISTORY: Dyspnea Comparison is made to a study from 08/04/2018. The heart size is within normal limits. There is minimal linear scarring on the left. There is mild unchanged prominence of the minor fissure. Low-grade interstitial edema cannot be excluded. No pulmonary consolidation is seen. There is no evidence of pleural fluid. IMPRESSION: 1. Minimal residual interstitial prominence. 2. No new abnormality is detected. Electronically signed by: Miguel Blount MD (08/07/2018 7:41 AM) [place]
[2018-08-07] MEDS: INSULIN LISPRO 300 UNITS/3 ML INSULN.PEN. SQ SCH ×3 (08:00→17:48)
[2018-08-07] MEDS: IPRATRPIUM/ALBUTEROL 0.5/2.5MG 3 ML NEBU. NEB SCH ×4 (09:02→21:19)
[2018-08-07] MEDS: TICAGRELOR 90 MG TABLET. PO SCH ×2 (09:43→20:29)
[2018-08-07] MEDS: FUROSEMIDE 40 MG/4 ML VIAL. IVP SCH ×2 (09:43→14:09)
[2018-08-07] MEDS: ASPIRIN ENTERIC COATED 81 MG TABLET.DR. PO SCH (09:44)
[2018-08-07] MEDS: POTASSIUM CHLORIDE 20 MEQ TABLET.ER. PO SCH (09:44)
[2018-08-07] MEDS: LISINOPRIL 5 MG TABLET. PO SCH (09:44)
--- NOTE | 2018-08-07 10:50 | PDOC ---
PROGRESS NOTES Chief Complaint Chief Complaint impression mod-severe protein-caloric malnutrition acute hypoxic respiratory failure from acute pulmonary edema, acute systolic CHF STEMI: [facility] with 3VD. TROP > 17, S/P PCI/RAMÍREZ to RCA. CHF, with EF 25% Elevated left sided filling pressures. LVEDP 28 mm Hg Severe [place] three vessel coronary disease with patent RCA stents. DIABETES 2 UTI, History of Present Illness History of Present Illness plan cvc prn BIPAP LAsix BID pulm and CV following full code iv rocephin Vitals Vitals Vital Signs Date Time Temp Pulse Resp B/P (MAP) Pulse Ox O2 Delivery O2 Flow Rate FiO2 08/07/18 09:45 96 Nasal Cannula 2.0 08/07/18 09:44 56 104/51 08/07/18 07:34 98.5 20 98.5 Physical Exam General: Alert, Oriented X3, Cooperative, No acute distress, mild distress Heart: Regular rate, Normal S1, Normal S2 Lungs: Other (decrease bases, left decreased from right, and decreased egophony) Abdomen: Normal bowel sounds, Soft, No tenderness Extremities: No cyanosis, Normal pulses, Other (1+ bilateral LE edema ) Skin: No significant lesion Labs LABS LEFT VENTRICULOGRAM:Deferred due to known EF. CORONARY ANGIOGRAPHY: LM is a large caliber vessel with distal 30% stenosis. LAD is a small caliber less than 2mm vessel in the mid to distal segments with significant diffuse disease of up to 50%. D1 is a small caliber vessel with diffuse irregularities of up to 50%. LCx and OM1 are small caliber vessels with subtotal occlusions in the mid to distal segments. RCA is a large caliber vessel with widely patent proximal and mid stents. RPDA is a small caliber vessel with mild diffuse irregularities of up to 30%. RPL has a mid 95% stenosis. The vessel is very small in caliber Conclusion 1. Elevated left sided filling pressures. LVEDP 28 mm Hg 2. Severe [place] three vessel coronary disease with patent RCA stents. 3. NSTEMI related to small vessel disease. Portable chest, 08/06/2018: HISTORY: Dyspnea Comparison is made to a study from 08/04/2018. The heart size is within normal limits. There is minimal linear scarring on the left. There is mild unchanged prominence of the minor fissure. Low-grade interstitial edema cannot be excluded. No pulmonary consolidation is seen. There is no evidence of pleural fluid. IMPRESSION: 1. Minimal residual interstitial prominence. 2. No new abnormality is detected. Electronically signed by: Miguel Blount MD (08/07/2018 7:41 AM) [facility] Laboratory Tests Test 08/06/18 11:25 08/06/18 11:29 08/06/18 15:45 08/06/18 17:24 Sodium Level 133 mmol/L (136-145) Potassium Level 3.4 mmol/L (3.5-5.1) Chloride Level 96 mmol/L (98-107) Carbon Dioxide Level 27 mmol/L (21-32) Anion Gap 10 (6-14) Blood Urea Nitrogen 22 mg/dL (7-20) Creatinine 1.3 mg/dL (0.6-1.0) Estimated GFR (Cockcroft-Gault) 40.5 Glucose Level 173 mg/dL (70-99) Calcium Level 7.9 mg/dL (8.5-10.1) Magnesium Level 2.1 mg/dL (1.8-2.4) Glucose (Fingerstick) 179 mg/dL (70-99) 118 mg/dL (70-99) Troponin I Quantitative 8.580 ng/mL (0.000-0.055) Test 08/06/18 20:48 08/07/18 04:40 08/07/18 07:01 Glucose (Fingerstick) 151 mg/dL (70-99) 104 mg/dL (70-99) White Blood Count 4.0 x10^3/uL (4.0-11.0) Red Blood Count 3.87 x10^6/uL (3.50-5.40) Hemoglobin 11.2 g/dL (12.0-15.5) Hematocrit 33.1 % (36.0-47.0) Mean Corpuscular Volume 86 fL (79-100) Mean Corpuscular Hemoglobin 29 pg (25-35) Mean Corpuscular Hemoglobin Concent 34 g/dL (31-37) Red Cell Distribution Width 14.9 % (11.5-14.5) Platelet Count 159 x10^3/uL (140-400) Neutrophils (%) (Auto) 66 % (31-73) Lymphocytes (%) (Auto) 25 % (24-48) Monocytes (%) (Auto) 8 % (0-9) Eosinophils (%) (Auto) 0 % (0-3) Basophils (%) (Auto) 0 % (0-3) Neutrophils # (Auto) 2.7 x10^3uL (1.8-7.7) Lymphocytes # (Auto) 1.0 x10^3/uL (1.0-4.8) Monocytes # (Auto) 0.3 x10^3/uL (0.0-1.1) Eosinophils # (Auto) 0.0 x10^3/uL (0.0-0.7) Basophils # (Auto) 0.0 x10^3/uL (0.0-0.2) Sodium Level 136 mmol/L (136-145) Potassium Level 3.6 mmol/L (3.5-5.1) Chloride Level 99 mmol/L (98-107) Carbon Dioxide Level 27 mmol/L (21-32) Anion Gap 10 (6-14) Blood Urea Nitrogen 21 mg/dL (7-20) Creatinine 1.2 mg/dL (0.6-1.0) Estimated GFR (Cockcroft-Gault) 44.4 BUN/Creatinine Ratio 18 (6-20) Glucose Level 109 mg/dL (70-99) Calcium Level 8.2 mg/dL (8.5-10.1) Total Bilirubin 0.8 mg/dL (0.2-1.0) Aspartate Amino Transf (AST/SGOT) 20 U/L (15-37) Alanine Aminotransferase (ALT/SGPT) 15 U/L (14-59) Alkaline Phosphatase 54 U/L (46-116) Total Protein 6.5 g/dL (6.4-8.2) Albumin 2.9 g/dL (3.4-5.0) Albumin/Globulin Ratio 0.8 (1.0-1.7) Review of Systems Review of Systems URINE CULTURE Final Final report URINE CULTURE RES 1 Final Escherichia coli Greater than 100,000 colony forming units per mL Cefazolin <=4 ug/mL Cefazolin with an GIL <=16 predicts susceptibility to the oral agents cefaclor, cefdinir, cefpodoxime, cefprozil, cefuroxime, cephalexin, and loracarbef when used for therapy of uncomplicated urinary tract infections due to E. coli, Klebsiella pneumoniae, and Proteus mirabilis. ANTIMICROBIAL SUSCEPTIBILITY Final Comment S = Susceptible; I = Intermediate; R = Resistant P = Positive; N = Negative MICS are expressed in micrograms per mL Antibiotic RSLT#1 RSLT#2 RSLT#3 RSLT#4 Amoxicillin/Clavulanic Acid S<=2 Ampicillin S<=2 Cefepime S<=0.12 Ceftriaxone S<=0.25 Cefuroxime S<=1 Ciprofloxacin S<=0.25 Ertapenem S<=0.12 Gentamicin S<=1 Imipenem S<=0.25 Levofloxacin S<=0.12 Meropenem S<=0.25 Nitrofurantoin S<=16 Piperacillin/Tazobactam S<=4 Tetracycline S<=1 Tobramycin S<=1 Trimethoprim/Sulfa S<=20 Performed at: [facility] [place] Comment Review of Relevant I have reviewed the following items isaias (where applicable) has been applied. Labs Laboratory Tests Test 08/05/18 12:36 08/05/18 17:25 08/05/18 21:33 08/06/18 07:56 Glucose (Fingerstick) 132 mg/dL (70-99) 131 mg/dL (70-99) 143 mg/dL (70-99) 107 mg/dL (70-99) Test 08/06/18 08:03 08/06/18 11:25 08/06/18 11:29 08/06/18 15:45 O2 Saturation 96 % (92-99) Arterial Blood pH 7.44 (7.35-7.45) Arterial Blood pCO2 at Patient Temp 36 mmHg (35-46) Arterial Blood pO2 at Patient Temp 84 mmHg (65-108) Arterial Blood HCO3 24 mmol/L (21-28) Arterial Blood Base Excess 0 mmol/L (-3-3) FiO2 35 Sodium Level 133 mmol/L (136-145) Potassium Level 3.4 mmol/L (3.5-5.1) Chloride Level 96 mmol/L (98-107) Carbon Dioxide Level 27 mmol/L (21-32) Anion Gap 10 (6-14) Blood Urea Nitrogen 22 mg/dL (7-20) Creatinine 1.3 mg/dL (0.6-1.0) Estimated GFR (Cockcroft-Gault) 40.5 Glucose Level 173 mg/dL (70-99) Calcium Level 7.9 mg/dL (8.5-10.1) Magnesium Level 2.1 mg/dL (1.8-2.4) Glucose (Fingerstick) 179 mg/dL (70-99) Troponin I Quantitative 8.580 ng/mL (0.000-0.055) Test 08/06/18 17:24 08/06/18 20:48 08/07/18 04:40 08/07/18 07:01 Glucose (Fingerstick) 118 mg/dL (70-99) 151 mg/dL (70-99) 104 mg/dL (70-99) White Blood Count 4.0 x10^3/uL (4.0-11.0) Red Blood Count 3.87 x10^6/uL (3.50-5.40) Hemoglobin 11.2 g/dL (12.0-15.5) Hematocrit 33.1 % (36.0-47.0) Mean Corpuscular Volume 86 fL (79-100) Mean Corpuscular Hemoglobin 29 pg (25-35) Mean Corpuscular Hemoglobin Concent 34 g/dL (31-37) Red Cell Distribution Width 14.9 % (11.5-14.5) Platelet Count 159 x10^3/uL (140-400) Neutrophils (%) (Auto) 66 % (31-73) Lymphocytes (%) (Auto) 25 % (24-48) Monocytes (%) (Auto) 8 % (0-9) Eosinophils (%) (Auto) 0 % (0-3) Basophils (%) (Auto) 0 % (0-3) Neutrophils # (Auto) 2.7 x10^3uL (1.8-7.7) Lymphocytes # (Auto) 1.0 x10^3/uL (1.0-4.8) Monocytes # (Auto) 0.3 x10^3/uL (0.0-1.1) Eosinophils # (Auto) 0.0 x10^3/uL (0.0-0.7) Basophils # (Auto) 0.0 x10^3/uL (0.0-0.2) Sodium Level 136 mmol/L (136-145) Potassium Level 3.6 mmol/L (3.5-5.1) Chloride Level 99 mmol/L (98-107) Carbon Dioxide Level 27 mmol/L (21-32) Anion Gap 10 (6-14) Blood Urea Nitrogen 21 mg/dL (7-20) Creatinine 1.2 mg/dL (0.6-1.0) Estimated GFR (Cockcroft-Gault) 44.4 BUN/Creatinine Ratio 18 (6-20) Glucose Level 109 mg/dL (70-99) Calcium Level 8.2 mg/dL (8.5-10.1) Total Bilirubin 0.8 mg/dL (0.2-1.0) Aspartate Amino Transf (AST/SGOT) 20 U/L (15-37) Alanine Aminotransferase (ALT/SGPT) 15 U/L (14-59) Alkaline Phosphatase 54 U/L (46-116) Total Protein 6.5 g/dL (6.4-8.2) Albumin 2.9 g/dL (3.4-5.0) Albumin/Globulin Ratio 0.8 (1.0-1.7) Laboratory Tests Test 08/06/18 11:25 08/06/18 11:29 08/06/18 15:45 08/06/18 17:24 Sodium Level 133 mmol/L (136-145) Potassium Level 3.4 mmol/L (3.5-5.1) Chloride Level 96 mmol/L (98-107) Carbon Dioxide Level 27 mmol/L (21-32) Anion Gap 10 (6-14) Blood Urea Nitrogen 22 mg/dL (7-20) Creatinine 1.3 mg/dL (0.6-1.0) Estimated GFR (Cockcroft-Gault) 40.5 Glucose Level 173 mg/dL (70-99) Calcium Level 7.9 mg/dL (8.5-10.1) Magnesium Level 2.1 mg/dL (1.8-2.4) Glucose (Fingerstick) 179 mg/dL (70-99) 118 mg/dL (70-99) Troponin I Quantitative 8.580 ng/mL (0.000-0.055) Test 08/06/18 20:48 08/07/18 04:40 08/07/18 07:01 Glucose (Fingerstick) 151 mg/dL (70-99) 104 mg/dL (70-99) White Blood Count 4.0 x10^3/uL (4.0-11.0) Red Blood Count 3.87 x10^6/uL (3.50-5.40) Hemoglobin 11.2 g/dL (12.0-15.5) Hematocrit 33.1 % (36.0-47.0) Mean Corpuscular Volume 86 fL (79-100) Mean Corpuscular Hemoglobin 29 pg (25-35) Mean Corpuscular Hemoglobin Concent 34 g/dL (31-37) Red Cell Distribution Width 14.9 % (11.5-14.5) Platelet Count 159 x10^3/uL (140-400) Neutrophils (%) (Auto) 66 % (31-73) Lymphocytes (%) (Auto) 25 % (24-48) Monocytes (%) (Auto) 8 % (0-9) Eosinophils (%) (Auto) 0 % (0-3) Basophils (%) (Auto) 0 % (0-3) Neutrophils # (Auto) 2.7 x10^3uL (1.8-7.7) Lymphocytes # (Auto) 1.0 x10^3/uL (1.0-4.8) Monocytes # (Auto) 0.3 x10^3/uL (0.0-1.1) Eosinophils # (Auto) 0.0 x10^3/uL (0.0-0.7) Basophils # (Auto) 0.0 x10^3/uL (0.0-0.2) Sodium Level 136 mmol/L (136-145) Potassium Level 3.6 mmol/L (3.5-5.1) Chloride Level 99 mmol/L (98-107) Carbon Dioxide Level 27 mmol/L (21-32) Anion Gap 10 (6-14) Blood Urea Nitrogen 21 mg/dL (7-20) Creatinine 1.2 mg/dL (0.6-1.0) Estimated GFR (Cockcroft-Gault) 44.4 BUN/Creatinine Ratio 18 (6-20) Glucose Level 109 mg/dL (70-99) Calcium Level 8.2 mg/dL (8.5-10.1) Total Bilirubin 0.8 mg/dL (0.2-1.0) Aspartate Amino Transf (AST/SGOT) 20 U/L (15-37) Alanine Aminotransferase (ALT/SGPT) 15 U/L (14-59) Alkaline Phosphatase 54 U/L (46-116) Total Protein 6.5 g/dL (6.4-8.2) Albumin 2.9 g/dL (3.4-5.0) Albumin/Globulin Ratio 0.8 (1.0-1.7) Microbiology 08/04/18 Blood Culture - Preliminary, Resulted NO GROWTH AFTER 3 DAYS 08/04/18 Urine Culture - Final, Complete 08/04/18 Urine Culture Result 1 (GIL) - Final, Complete 08/04/18 Antimicrobic Susceptibility - Final, Complete Medications Current Medications Furosemide (Lasix) 40 mg 1X ONCE IVP Last administered on 08/04/18at 02:30; Start 08/04/18 at 02:15; Stop 08/04/18 at 02:16; Status DC Ondansetron HCl (Zofran) 4 mg PRN Q8HRS PRN IV NAUSEA/VOMITING; Start 08/04/18 at 03:00; Stop 08/05/18 at 02:59; Status DC Aspirin (Children'S Aspirin) 324 mg 1X ONCE PO ; Start 08/04/18 at 04:30; Stop 08/04/18 at 04:31; Status DC Ceftriaxone Sodium (Rocephin) 1 gm Q24H IVP Last administered on 08/04/18at 04: 39; Start 08/04/18 at 04:30; Stop 08/04/18 at 11:16; Status DC Insulin Human Lispro (HumaLOG) 0-7 UNITS TIDWMEALS SQ ; Start 08/04/18 at 08:00 ; Stop 08/05/18 at 15:13; Status DC Dextrose (Dextrose 50%-Water Syringe) 12.5 gm PRN Q15MIN PRN IV SEE COMMENTS; Start 08/04/18 at 04:15; Status Cancel Hydralazine HCl (Apresoline Inj) 10 mg PRN Q6HRS PRN IVP ELEVATED BP, SEE COMMENTS; Start 08/04/18 at 04:15 Heparin Sodium/ Dextrose 500 ml @ 0 mls/hr CONT PRN IV SEE I/O RECORD Last administered on 08/04/18at 06:52; Start 08/04/18 at 06:30; Stop 08/05/18 at 15:13 ; Status DC Heparin Sodium (Porcine) (Heparin Sodium) 1,650 unit PRN Q6HRS PRN IV FOR UFH LEVEL LESS THAN 0.2; Start 08/04/18 at 06:30; Stop 08/05/18 at 15:13; Status DC Aspirin (Ecotrin) 81 mg DAILYWBKFT PO Last administered on 08/07/18at 09:44; Start 08/05/18 at 08:00 Atorvastatin Calcium (Lipitor) 40 mg QHS PO Last administered on 08/06/18at 20: 46; Start 08/04/18 at 21:00 Carvedilol (Coreg) 3.125 mg BIDWMEALS PO Last administered on 08/06/18 09:00; Start 08/04/18 at 17:00; Stop 08/06/18 at 14:57; Status DC Potassium Chloride (Klor-Con) 20 meq DAILYWBKFT PO Last administered on at 09:44; Start 08/04/18 at 11:00 Ticagrelor (Brilinta) 90 mg BID PO Last administered on 08/07/18 09:43; Start 08/04/18 at 21:00 Lisinopril (Prinivil) 5 mg DAILY PO Last administered on 08/07/18 09:44; Start 08/04/18 at 11:00 Info (Anti-Coagulation Monitoring By Pharmacy) 1 each PRN DAILY PRN MC SEE COMMENTS Last administered on 08/04/18at 13:17; Start 08/04/18 at 10:15; Stop at 15:13; Status DC Influenza Virus Vaccine (Afluria Trivalent [id number] Syringe) 0.5 ml ONCE ONCE VAX IM Last administered on 08/05/18at 17:07; Start 08/04/18 at 11:00; Stop 05/13 at 11:02; Status DC Albuterol/ Ipratropium (Duoneb) 3 ml RTQID NEB Last administered on 08/07/18at 09:02; Start 08/04/18 at 12:00 Iodixanol (Visipaque 320) 100 ml STK-MED ONCE .ROUTE ; Start 08/04/18 at 15:20; Stop 08/04/18 at 15:21; Status DC Lidocaine HCl (Xylocaine-Mpf 1% 2ml Vial) 2 ml STK-MED ONCE .ROUTE ; Start 08/04 at 15:20; Stop 08/04/18 at 15:21; Status DC Heparin Sodium/ Sodium Chloride 1,000 ml @ As Directed STK-MED ONCE .ROUTE ; Start 08/04/18 at 15:20; Stop 08/04/18 at 15:21; Status DC Lidocaine HCl (Lidocaine 1% 20ml Vial) 20 ml STK-MED ONCE .ROUTE ; Start at 15:27; Stop 08/04/18 at 15:28; Status DC Midazolam HCl (Versed) 2 mg STK-MED ONCE .ROUTE ; Start 08/04/18 at 15:29; Stop 08/04/18 at 15:30; Status DC Fentanyl Citrate (Fentanyl 2ml Vial) 100 mcg STK-MED ONCE .ROUTE ; Start at 15:29; Stop 08/04/18 at 15:30; Status DC Heparin Sodium/ Sodium Chloride (HEPARIN for ARTERIAL LINE FLUSH) 1,000 unit 1X ONCE IART Last administered on 08/04/18at 15:45; Start 08/04/18 at 15:45; Stop 08/04/18 at 15:46; Status DC Heparin Sodium/ Sodium Chloride (HEPARIN for ARTERIAL LINE FLUSH) 1,000 unit 1X ONCE IART Last administered on 08/04/18at 15:45; Start 08/04/18 at 15:45; Stop 08/04/18 at 15:46; Status DC Midazolam HCl (Versed) 2 mg 1X ONCE IV Last administered on 08/04/18at 15:45; Start 08/04/18 at 15:45; Stop 08/04/18 at 15:46; Status DC Fentanyl Citrate (Fentanyl 2ml Vial) 100 mcg 1X ONCE IV Last administered on at 15:45; Start 08/04/18 at 15:45; Stop 08/04/18 at 15:46; Status DC Iohexol (Omnipaque 300 Mg/ml) 100 ml 1X ONCE IART Last administered on at 15:45; Start 08/04/18 at 15:45; Stop 08/04/18 at 15:46; Status DC Lidocaine HCl (Lidocaine 1% 20ml Vial) 20 ml 1X ONCE INJ Last administered on 08/04/18at 15:45; Start 08/04/18 at 15:45; Stop 08/04/18 at 15:46; Status DC Info (CONTRAST GIVEN -- Rx MONITORING) 1 each PRN DAILY PRN MC SEE COMMENTS; Start 08/04/18 at 15:45; Stop 08/06/18 at 15:44; Status DC Furosemide (Lasix) 40 mg 1X ONCE IVP Last administered on 08/04/18at 16:40; Start 08/04/18 at 16:45; Stop 08/04/18 at 16:46; Status DC Furosemide (Lasix) 20 mg 1X ONCE IVP Last administered on 08/05/18at 08:54; Start 08/05/18 at 08:00; Stop 08/05/18 at 08:01; Status DC Insulin Human Lispro (HumaLOG) 0-5 UNITS TIDWMEALS SQ Last administered on 08/06at 12:33; Start 08/05/18 at 17:00 Dextrose (Dextrose 50%-Water Syringe) 12.5 gm PRN Q15MIN PRN IV SEE COMMENTS; Start 08/05/18 at 14:15 Albuterol Sulfate (Ventolin Neb Soln) 2.5 mg PRN Q2HR PRN NEB SHORTNESS OF BREATH Last administered on 08/06/18at 02:08; Start 08/06/18 at 02:00 Ceftriaxone Sodium (Rocephin) 1 gm Q24H IVP Last administered on 08/06/18at 15: 19; Start 08/06/18 at 15:00 Furosemide (Lasix) 40 mg BID92 IVP Last administered on 08/07/18at 09:43; Start 08/06/18 at 15:00 Enoxaparin Sodium (Lovenox Per Pharmacy Prophylaxis Dosing) 1 each PRN DAILY PRN MC SEE COMMENTS; Start 08/06/18 at 15:15 Enoxaparin Sodium (Lovenox 40mg Syringe) 40 mg Q24H SQ Last administered on at 15:27; Start 08/06/18 at 16:00 Potassium Chloride (Klor-Con) 20 meq 1X ONCE PO Last administered on at 15:30; Start 08/06/18 at 15:15; Stop 08/06/18 at 15:16; Status DC Furosemide (Lasix) 40 mg 1X ONCE IVP Last administered on 08/06/18at 20:47; Start 08/06/18 at 21:00; Stop 08/06/18 at 21:01; Status DC Active Scripts Active Furosemide 40 Mg Tablet 40 Mg PO DAILY 30 Days Klor-Con M20 (Potassium Chloride) 20 Meq Tab.er.prt 20 Meq PO DAILYWBKFT Aspirin Ec (Aspirin) 81 Mg Tablet.dr 81 Mg PO DAILYWBKFT 30 Days Lisinopril 5 Mg Tablet 5 Mg PO DAILY 30 Days Carvedilol (Carvedilol) 3.125 Mg Tablet 3.125 Mg PO BIDWMEALS 30 Days Atorvastatin Calcium 40 Mg Tablet 40 Mg PO QHS 30 Days Brilinta (Ticagrelor) 90 Mg Tablet 90 Mg PO BID 14 Days Vitals/I & O Vital Sign - Last 24 Hours 08/06/18 08/06/18 08/06/18 08/06/18 11:47 11:57 14:57 15:35 Temp 98.8 98.2 98.8 98.2 Pulse 49 52 Resp 24 B/P (MAP) 110/55 (73) 140/62 (88) Pulse Ox 99 98 100 99 O2 Delivery Nasal Cannula Nasal Cannula Nasal Cannula Nasal Cannula O2 Flow Rate 4.0 4.0 4.0 4.0 08/06/18 08/06/18 08/06/18 08/06/18 19:25 19:25 20:05 20:07 Temp 97.9 97.9 Pulse 52 Resp 19 B/P (MAP) 108/51 (70) Pulse Ox 98 98 O2 Delivery Nasal Cannula Nasal Cannula Nasal Cannula O2 Flow Rate 4.0 4.0 4.0 4.0 08/06/18 08/06/18 08/07/18 08/07/18 23:40 23:41 04:05 04:06 Temp 98.0 98.0 98.0 98.0 Pulse 56 55 Resp 18 18 B/P (MAP) 114/54 (74) 120/56 (77) Pulse Ox 99 99 O2 Delivery Nasal Cannula Nasal Cannula O2 Flow Rate 4.0 4.0 4.0 4.0 08/07/18 08/07/18 08/07/18 08/07/18 07:34 08:00 09:03 09:41 Temp 98.5 98.5 Pulse 54 56 Resp 20 B/P (MAP) 108/51 (70) 104/51 (68) Pulse Ox 95 99 97 O2 Delivery Nasal Cannula Nasal Cannula Nasal Cannula Nasal Cannula O2 Flow Rate 4.0 2.0 3.0 3.0 08/07/18 08/07/18 09:44 09:45 Pulse 56 B/P (MAP) 104/51 Pulse Ox 96 O2 Delivery Nasal Cannula O2 Flow Rate 2.0 Intake and Output 08/06/18 08/06/18 08/07/18 15:00 23:00 07:00 Output Total 100 ml 800 ml 700 ml Balance -100 ml -800 ml -700 ml LEONEL THAKUR MD Aug 07, 2018 10:50
--- NOTE | 2018-08-07 11:32 | PDOC ---
PULMONARY PROGRESS NOTES Subjective FEELS BETTER Vitals Vital Signs Date Time Temp Pulse Resp B/P (MAP) Pulse Ox O2 Delivery O2 Flow Rate FiO2 08/07/18 10:59 99.2 51 20 131/61 (84) 100 Nasal Cannula 2.0 99.2 General: Alert, No acute distress Lungs: Other (decrease bs) Cardiovascular: S1 Abdomen: Soft Neuro Exam: Alert Extremities: No Edema Skin: Warm Labs Laboratory Tests Test 08/05/18 12:36 08/05/18 17:25 08/05/18 21:33 08/06/18 07:56 Glucose (Fingerstick) 132 mg/dL (70-99) 131 mg/dL (70-99) 143 mg/dL (70-99) 107 mg/dL (70-99) Test 08/06/18 08:03 08/06/18 11:25 08/06/18 11:29 08/06/18 15:45 O2 Saturation 96 % (92-99) Arterial Blood pH 7.44 (7.35-7.45) Arterial Blood pCO2 at Patient Temp 36 mmHg (35-46) Arterial Blood pO2 at Patient Temp 84 mmHg (65-108) Arterial Blood HCO3 24 mmol/L (21-28) Arterial Blood Base Excess 0 mmol/L (-3-3) FiO2 35 Sodium Level 133 mmol/L (136-145) Potassium Level 3.4 mmol/L (3.5-5.1) Chloride Level 96 mmol/L (98-107) Carbon Dioxide Level 27 mmol/L (21-32) Anion Gap 10 (6-14) Blood Urea Nitrogen 22 mg/dL (7-20) Creatinine 1.3 mg/dL (0.6-1.0) Estimated GFR (Cockcroft-Gault) 40.5 Glucose Level 173 mg/dL (70-99) Calcium Level 7.9 mg/dL (8.5-10.1) Magnesium Level 2.1 mg/dL (1.8-2.4) Glucose (Fingerstick) 179 mg/dL (70-99) Troponin I Quantitative 8.580 ng/mL (0.000-0.055) Test 08/06/18 17:24 08/06/18 20:48 08/07/18 04:40 08/07/18 07:01 Glucose (Fingerstick) 118 mg/dL (70-99) 151 mg/dL (70-99) 104 mg/dL (70-99) White Blood Count 4.0 x10^3/uL (4.0-11.0) Red Blood Count 3.87 x10^6/uL (3.50-5.40) Hemoglobin 11.2 g/dL (12.0-15.5) Hematocrit 33.1 % (36.0-47.0) Mean Corpuscular Volume 86 fL (79-100) Mean Corpuscular Hemoglobin 29 pg (25-35) Mean Corpuscular Hemoglobin Concent 34 g/dL (31-37) Red Cell Distribution Width 14.9 % (11.5-14.5) Platelet Count 159 x10^3/uL (140-400) Neutrophils (%) (Auto) 66 % (31-73) Lymphocytes (%) (Auto) 25 % (24-48) Monocytes (%) (Auto) 8 % (0-9) Eosinophils (%) (Auto) 0 % (0-3) Basophils (%) (Auto) 0 % (0-3) Neutrophils # (Auto) 2.7 x10^3uL (1.8-7.7) Lymphocytes # (Auto) 1.0 x10^3/uL (1.0-4.8) Monocytes # (Auto) 0.3 x10^3/uL (0.0-1.1) Eosinophils # (Auto) 0.0 x10^3/uL (0.0-0.7) Basophils # (Auto) 0.0 x10^3/uL (0.0-0.2) Sodium Level 136 mmol/L (136-145) Potassium Level 3.6 mmol/L (3.5-5.1) Chloride Level 99 mmol/L (98-107) Carbon Dioxide Level 27 mmol/L (21-32) Anion Gap 10 (6-14) Blood Urea Nitrogen 21 mg/dL (7-20) Creatinine 1.2 mg/dL (0.6-1.0) Estimated GFR (Cockcroft-Gault) 44.4 BUN/Creatinine Ratio 18 (6-20) Glucose Level 109 mg/dL (70-99) Calcium Level 8.2 mg/dL (8.5-10.1) Total Bilirubin 0.8 mg/dL (0.2-1.0) Aspartate Amino Transf (AST/SGOT) 20 U/L (15-37) Alanine Aminotransferase (ALT/SGPT) 15 U/L (14-59) Alkaline Phosphatase 54 U/L (46-116) Total Protein 6.5 g/dL (6.4-8.2) Albumin 2.9 g/dL (3.4-5.0) Albumin/Globulin Ratio 0.8 (1.0-1.7) Laboratory Tests Test 08/06/18 15:45 08/06/18 17:24 08/06/18 20:48 08/07/18 04:40 Troponin I Quantitative 8.580 ng/mL (0.000-0.055) Glucose (Fingerstick) 118 mg/dL (70-99) 151 mg/dL (70-99) White Blood Count 4.0 x10^3/uL (4.0-11.0) Red Blood Count 3.87 x10^6/uL (3.50-5.40) Hemoglobin 11.2 g/dL (12.0-15.5) Hematocrit 33.1 % (36.0-47.0) Mean Corpuscular Volume 86 fL (79-100) Mean Corpuscular Hemoglobin 29 pg (25-35) Mean Corpuscular Hemoglobin Concent 34 g/dL (31-37) Red Cell Distribution Width 14.9 % (11.5-14.5) Platelet Count 159 x10^3/uL (140-400) Neutrophils (%) (Auto) 66 % (31-73) Lymphocytes (%) (Auto) 25 % (24-48) Monocytes (%) (Auto) 8 % (0-9) Eosinophils (%) (Auto) 0 % (0-3) Basophils (%) (Auto) 0 % (0-3) Neutrophils # (Auto) 2.7 x10^3uL (1.8-7.7) Lymphocytes # (Auto) 1.0 x10^3/uL (1.0-4.8) Monocytes # (Auto) 0.3 x10^3/uL (0.0-1.1) Eosinophils # (Auto) 0.0 x10^3/uL (0.0-0.7) Basophils # (Auto) 0.0 x10^3/uL (0.0-0.2) Sodium Level 136 mmol/L (136-145) Potassium Level 3.6 mmol/L (3.5-5.1) Chloride Level 99 mmol/L (98-107) Carbon Dioxide Level 27 mmol/L (21-32) Anion Gap 10 (6-14) Blood Urea Nitrogen 21 mg/dL (7-20) Creatinine 1.2 mg/dL (0.6-1.0) Estimated GFR (Cockcroft-Gault) 44.4 BUN/Creatinine Ratio 18 (6-20) Glucose Level 109 mg/dL (70-99) Calcium Level 8.2 mg/dL (8.5-10.1) Total Bilirubin 0.8 mg/dL (0.2-1.0) Aspartate Amino Transf (AST/SGOT) 20 U/L (15-37) Alanine Aminotransferase (ALT/SGPT) 15 U/L (14-59) Alkaline Phosphatase 54 U/L (46-116) Total Protein 6.5 g/dL (6.4-8.2) Albumin 2.9 g/dL (3.4-5.0) Albumin/Globulin Ratio 0.8 (1.0-1.7) Test 08/07/18 07:01 Glucose (Fingerstick) 104 mg/dL (70-99) Medications Active Scripts Medications Dose Route/Sig Max Daily Dose Days Date Category Furosemide 40 Mg Tablet 40 Mg PO DAILY 06/02/18 Rx Klor-Con M20 (Potassium Chloride) 20 Meq Tab.er.prt 20 Meq PO DAILYWBK06/02/18 Rx Aspirin Ec (Aspirin) 81 Mg Tablet.dr 81 Mg PO DAILYWBKFT 06/02/18 Rx Lisinopril 5 Mg Tablet 5 Mg PO DAILY 06/02/18 Rx Carvedilol (Carvedilol) 3.125 Mg Tablet 3.125 Mg PO BIDWMEALS 06/02/18 Rx Atorvastatin Calcium 40 Mg Tablet 40 Mg PO QHS 06/02/18 Rx Brilinta (Ticagrelor) 90 Mg Tablet 90 Mg PO BID 14 06/02/18 Rx Impression . 1. Acute hypoxic respiratory failure secondary to [id number] systolic heart failure. 2. The patient with ischemic cardiomyopathy with an EF of 25%. 3. Recent inferoposterior ST elevation myocardial infarction in May of this year, status post percutaneous coronary intervention/drug-eluting stent to mid RCA.Now with another NSTMI 4. Repeat left heart catheterization with elevated filling pressures on the left side. patent stents to RCA 5. Suspected underlying chronic obstructive pulmonary disease with 40 years of tobacco use. 6. No clinical evidence to suggest pneumonia. Plan . 1. prn BiPAP. Continue with nasal cannula 2. Diuresis per cardiology 3. Follow Cardiology's recommendations. 4. f/u cxr prn 5. Continue bronchodilators. 6. Antibiotics discontinued 7. Discussed with RN and GARRETT WARD MD Aug 07, 2018 11:32
--- NOTE | 2018-08-07 12:58 | PDOC ---
REUBEN SANTANA [employer] 08/07/18 1258: CARDIO Progress Notes Date and Time Date of Service 08/07/2018 Time of Evaluation 1230 Subjective Subjective: No Chest Pain, No shortness of breath, No Palpitations Vitals Vitals Vital Signs Date Time Temp Pulse Resp B/P (MAP) Pulse Ox O2 Delivery O2 Flow Rate FiO2 08/07/18 12:13 98 Nasal Cannula 1.0 08/07/18 10:59 99.2 51 20 131/61 (84) 99.2 Weight Weight [ ] Input and Output Intake and Output Intake and Output 08/07/18 06:59 Output Total 1600 ml Balance -1600 ml Output Urine Total 1600 ml # Voids 2 # Bowel Movements 3 Laboratory Labs Laboratory Tests Test 08/06/18 15:45 08/06/18 17:24 08/06/18 20:48 08/07/18 04:40 Troponin I Quantitative 8.580 ng/mL (0.000-0.055) Glucose (Fingerstick) 118 mg/dL (70-99) 151 mg/dL (70-99) White Blood Count 4.0 x10^3/uL (4.0-11.0) Red Blood Count 3.87 x10^6/uL (3.50-5.40) Hemoglobin 11.2 g/dL (12.0-15.5) Hematocrit 33.1 % (36.0-47.0) Mean Corpuscular Volume 86 fL (79-100) Mean Corpuscular Hemoglobin 29 pg (25-35) Mean Corpuscular Hemoglobin Concent 34 g/dL (31-37) Red Cell Distribution Width 14.9 % (11.5-14.5) Platelet Count 159 x10^3/uL (140-400) Neutrophils (%) (Auto) 66 % (31-73) Lymphocytes (%) (Auto) 25 % (24-48) Monocytes (%) (Auto) 8 % (0-9) Eosinophils (%) (Auto) 0 % (0-3) Basophils (%) (Auto) 0 % (0-3) Neutrophils # (Auto) 2.7 x10^3uL (1.8-7.7) Lymphocytes # (Auto) 1.0 x10^3/uL (1.0-4.8) Monocytes # (Auto) 0.3 x10^3/uL (0.0-1.1) Eosinophils # (Auto) 0.0 x10^3/uL (0.0-0.7) Basophils # (Auto) 0.0 x10^3/uL (0.0-0.2) Sodium Level 136 mmol/L (136-145) Potassium Level 3.6 mmol/L (3.5-5.1) Chloride Level 99 mmol/L (98-107) Carbon Dioxide Level 27 mmol/L (21-32) Anion Gap 10 (6-14) Blood Urea Nitrogen 21 mg/dL (7-20) Creatinine 1.2 mg/dL (0.6-1.0) Estimated GFR (Cockcroft-Gault) 44.4 BUN/Creatinine Ratio 18 (6-20) Glucose Level 109 mg/dL (70-99) Calcium Level 8.2 mg/dL (8.5-10.1) Total Bilirubin 0.8 mg/dL (0.2-1.0) Aspartate Amino Transf (AST/SGOT) 20 U/L (15-37) Alanine Aminotransferase (ALT/SGPT) 15 U/L (14-59) Alkaline Phosphatase 54 U/L (46-116) Total Protein 6.5 g/dL (6.4-8.2) Albumin 2.9 g/dL (3.4-5.0) Albumin/Globulin Ratio 0.8 (1.0-1.7) Test 08/07/18 07:01 08/07/18 12:02 Glucose (Fingerstick) 104 mg/dL (70-99) 156 mg/dL (70-99) Microbiology Micro Microbiology 08/04/18 Blood Culture - Preliminary, Resulted NO GROWTH AFTER 3 DAYS 08/04/18 Urine Culture - Final, Complete 08/04/18 Urine Culture Result 1 (GIL) - Final, Complete 08/04/18 Antimicrobic Susceptibility - Final, Complete Physical Exam HEENT: Neck Supple W Full Motion Chest: Symmetric LUNGS: Other (basilar crackles) Heart: RRR (junctional) Abdomen: Soft N/T Extremities: No Calf Tenderness Neurology: alert, oriented, follow commands Assessment Assessment 1. NSTEMI: CP free. Recent LHC with patent RCA stents. 2. Acute on chronic systolic CHF: better 3. ICM: 35-40% appears compensated 4. Arrhythmia: currently junctional lowest in the upper 40s. remains with no pauses. mean 50s, no symptoms 5. HTN: controlled Recommendations 1. Check BMP and Mg. No AV mildred agents. Possibly sinus node dysfunction, may need future PPM otherwise event monitor. 2. Lasix therapy. Continue DAPT. Replace K as warranted 3. Bipap PRN 4. Secondary prevention measures. Consider entresto as outpt. Lisinopril for now. Supportive care. 5. OT/PT eval. anticpate DC tomorrow. RITA DAVILA MD 08/07/18 1537: CARDIO Progress Notes Plan Plan Pt. seen and examined. Agree with above FLANGER note. Continue present meds. Still appears to be in junctional rhythm. ?ischemic SA node dysfunction. Will plan for repeat EKG. May need pacer or ICD on friday. Continue present treatments. Will follow along. REUBEN SANTANA APRN Aug 07, 2018 12:58 RITA DAVILA MD Aug 07, 2018 15:37
[2018-08-07] MEDS: cefTRIAXone IV Push 1 GM VIAL. IVP SCH (14:09)
--- NOTE | 2018-08-07 16:05 | EKG ---
[facility] [address] [place] [address] Test Date: 2018-08-07 Test Time: 15:58:07 Pat Name: EMILY TOMPKINS Department: Room: 244 1 Gender: F Slate Splitter: : 1950 Requested By: RITA DAVILA Order Number: [id number] Reading MD: Rita Davila MD Measurements Intervals [place] Rate: 60 P: -51 AR: 68 QRS: 126 QRSD: 90 T: 126 QT: 490 QTc: 495 Interpretive Statements PROBABLE JUNCTIONAL RHYTHM ANTERIOR TWI SUGGESTIVE OF ISCHEMIA Electronically Signed On 08-13-2018 14:00:14 CDT by Rita Davila MD
[2018-08-07] MEDS: ENOXAPARIN 40 MG/0.4 ML SYRINGE. SQ SCH (16:42)
[2018-08-07] MEDS: LACTOBACILLUS RHAMNOSUS GG 1 CAPSULE. PO SCH (20:29)
[2018-08-07] MEDS: ATORVASTATIN CALCIUM 40 MG TABLET. PO SCH (20:29)
[2018-08-08 03:59] VITALS: BP_SYST 126; BP_SYST 131; BP_DIAS 58; BP_DIAS 60
[2018-08-08 05:31] LABS: BASO % 1 % (0-3); EOS % 0 % (0-3); HEMATOCRIT 34.2 % (36.0-47.0); HEMOGLOBIN 11.5 g/dL (12.0-15.5); LYMPH # 0.9 x10^3/uL (1.0-4.8); LYMPH % 20 % (24-48); MEAN CORPUSCULAR HEMOGLOBIN 29 pg (25-35); MEAN CORPUSCULAR HGB CONC 34 g/dL (31-37); MEAN CORPUSCULAR VOLUME 86 fL (79-100); MONO # 0.4 x10^3/uL (0.0-1.1); MONO % 8 % (0-9); NEUT # 3.2 x10^3uL (1.8-7.7); NEUT % 71 % (31-73); PLATELET COUNT 157 x10^3/uL (140-400); RED BLOOD COUNT 3.97 x10^6/uL (3.50-5.40); RED CELL DISTRIBUTION WIDTH 15.3 % (11.5-14.5); WHITE BLOOD COUNT 4.5 x10^3/uL (4.0-11.0)
[2018-08-08 06:01] LABS: CALCIUM 8.4 mg/dL (8.5-10.1); CREATININE 1.1 mg/dL (0.6-1.0); GFR 49.1; POTASSIUM 3.6 mmol/L (3.5-5.1)
[2018-08-08 07:00] VITALS: BP 120/54
--- NOTE | 2018-08-08 07:32 | PDOC ---
PULMONARY PROGRESS NOTES Subjective FEELS BETTER, no sob, has occ cough, no pain Vitals Vital Signs Date Time Temp Pulse Resp B/P (MAP) Pulse Ox O2 Delivery O2 Flow Rate FiO2 08/08/18 03:59 99.1 63 19 131/60 (83) 94 Room Air 99.1 08/07/18 21:20 2.0 ROS: No Nausea, No Chest Pain General: Alert, No acute distress HEENT: Other (nc at perrl) Lungs: Other (decrease bs) Cardiovascular: S1, S2 Abdomen: Soft, Non-tender Neuro Exam: Alert Extremities: No Edema Skin: Warm Labs Laboratory Tests Test 08/06/18 07:56 08/06/18 08:03 08/06/18 11:25 08/06/18 11:29 Glucose (Fingerstick) 107 mg/dL (70-99) 179 mg/dL (70-99) O2 Saturation 96 % (92-99) Arterial Blood pH 7.44 (7.35-7.45) Arterial Blood pCO2 at Patient Temp 36 mmHg (35-46) Arterial Blood pO2 at Patient Temp 84 mmHg (65-108) Arterial Blood HCO3 24 mmol/L (21-28) Arterial Blood Base Excess 0 mmol/L (-3-3) FiO2 35 Sodium Level 133 mmol/L (136-145) Potassium Level 3.4 mmol/L (3.5-5.1) Chloride Level 96 mmol/L (98-107) Carbon Dioxide Level 27 mmol/L (21-32) Anion Gap 10 (6-14) Blood Urea Nitrogen 22 mg/dL (7-20) Creatinine 1.3 mg/dL (0.6-1.0) Estimated GFR (Cockcroft-Gault) 40.5 Glucose Level 173 mg/dL (70-99) Calcium Level 7.9 mg/dL (8.5-10.1) Magnesium Level 2.1 mg/dL (1.8-2.4) Test 08/06/18 15:45 08/06/18 17:24 08/06/18 20:48 08/07/18 04:40 Troponin I Quantitative 8.580 ng/mL (0.000-0.055) Glucose (Fingerstick) 118 mg/dL (70-99) 151 mg/dL (70-99) White Blood Count 4.0 x10^3/uL (4.0-11.0) Red Blood Count 3.87 x10^6/uL (3.50-5.40) Hemoglobin 11.2 g/dL (12.0-15.5) Hematocrit 33.1 % (36.0-47.0) Mean Corpuscular Volume 86 fL (79-100) Mean Corpuscular Hemoglobin 29 pg (25-35) Mean Corpuscular Hemoglobin Concent 34 g/dL (31-37) Red Cell Distribution Width 14.9 % (11.5-14.5) Platelet Count 159 x10^3/uL (140-400) Neutrophils (%) (Auto) 66 % (31-73) Lymphocytes (%) (Auto) 25 % (24-48) Monocytes (%) (Auto) 8 % (0-9) Eosinophils (%) (Auto) 0 % (0-3) Basophils (%) (Auto) 0 % (0-3) Neutrophils # (Auto) 2.7 x10^3uL (1.8-7.7) Lymphocytes # (Auto) 1.0 x10^3/uL (1.0-4.8) Monocytes # (Auto) 0.3 x10^3/uL (0.0-1.1) Eosinophils # (Auto) 0.0 x10^3/uL (0.0-0.7) Basophils # (Auto) 0.0 x10^3/uL (0.0-0.2) Sodium Level 136 mmol/L (136-145) Potassium Level 3.6 mmol/L (3.5-5.1) Chloride Level 99 mmol/L (98-107) Carbon Dioxide Level 27 mmol/L (21-32) Anion Gap 10 (6-14) Blood Urea Nitrogen 21 mg/dL (7-20) Creatinine 1.2 mg/dL (0.6-1.0) Estimated GFR (Cockcroft-Gault) 44.4 BUN/Creatinine Ratio 18 (6-20) Glucose Level 109 mg/dL (70-99) Calcium Level 8.2 mg/dL (8.5-10.1) Total Bilirubin 0.8 mg/dL (0.2-1.0) Aspartate Amino Transf (AST/SGOT) 20 U/L (15-37) Alanine Aminotransferase (ALT/SGPT) 15 U/L (14-59) Alkaline Phosphatase 54 U/L (46-116) Total Protein 6.5 g/dL (6.4-8.2) Albumin 2.9 g/dL (3.4-5.0) Albumin/Globulin Ratio 0.8 (1.0-1.7) Test 08/07/18 07:01 08/07/18 12:02 08/07/18 16:56 08/07/18 20:08 Glucose (Fingerstick) 104 mg/dL (70-99) 156 mg/dL (70-99) 179 mg/dL (70-99) 164 mg/dL (70-99) Test 08/08/18 04:25 White Blood Count 4.5 x10^3/uL (4.0-11.0) Red Blood Count 3.97 x10^6/uL (3.50-5.40) Hemoglobin 11.5 g/dL (12.0-15.5) Hematocrit 34.2 % (36.0-47.0) Mean Corpuscular Volume 86 fL (79-100) Mean Corpuscular Hemoglobin 29 pg (25-35) Mean Corpuscular Hemoglobin Concent 34 g/dL (31-37) Red Cell Distribution Width 15.3 % (11.5-14.5) Platelet Count 157 x10^3/uL (140-400) Neutrophils (%) (Auto) 71 % (31-73) Lymphocytes (%) (Auto) 20 % (24-48) Monocytes (%) (Auto) 8 % (0-9) Eosinophils (%) (Auto) 0 % (0-3) Basophils (%) (Auto) 1 % (0-3) Neutrophils # (Auto) 3.2 x10^3uL (1.8-7.7) Lymphocytes # (Auto) 0.9 x10^3/uL (1.0-4.8) Monocytes # (Auto) 0.4 x10^3/uL (0.0-1.1) Eosinophils # (Auto) 0.0 x10^3/uL (0.0-0.7) Basophils # (Auto) 0.0 x10^3/uL (0.0-0.2) Sodium Level 135 mmol/L (136-145) Potassium Level 3.6 mmol/L (3.5-5.1) Chloride Level 97 mmol/L (98-107) Carbon Dioxide Level 27 mmol/L (21-32) Anion Gap 11 (6-14) Blood Urea Nitrogen 19 mg/dL (7-20) Creatinine 1.1 mg/dL (0.6-1.0) Estimated GFR (Cockcroft-Gault) 49.1 Glucose Level 121 mg/dL (70-99) Calcium Level 8.4 mg/dL (8.5-10.1) Laboratory Tests Test 08/07/18 12:02 08/07/18 16:56 08/07/18 20:08 08/08/18 04:25 Glucose (Fingerstick) 156 mg/dL (70-99) 179 mg/dL (70-99) 164 mg/dL (70-99) White Blood Count 4.5 x10^3/uL (4.0-11.0) Red Blood Count 3.97 x10^6/uL (3.50-5.40) Hemoglobin 11.5 g/dL (12.0-15.5) Hematocrit 34.2 % (36.0-47.0) Mean Corpuscular Volume 86 fL (79-100) Mean Corpuscular Hemoglobin 29 pg (25-35) Mean Corpuscular Hemoglobin Concent 34 g/dL (31-37) Red Cell Distribution Width 15.3 % (11.5-14.5) Platelet Count 157 x10^3/uL (140-400) Neutrophils (%) (Auto) 71 % (31-73) Lymphocytes (%) (Auto) 20 % (24-48) Monocytes (%) (Auto) 8 % (0-9) Eosinophils (%) (Auto) 0 % (0-3) Basophils (%) (Auto) 1 % (0-3) Neutrophils # (Auto) 3.2 x10^3uL (1.8-7.7) Lymphocytes # (Auto) 0.9 x10^3/uL (1.0-4.8) Monocytes # (Auto) 0.4 x10^3/uL (0.0-1.1) Eosinophils # (Auto) 0.0 x10^3/uL (0.0-0.7) Basophils # (Auto) 0.0 x10^3/uL (0.0-0.2) Sodium Level 135 mmol/L (136-145) Potassium Level 3.6 mmol/L (3.5-5.1) Chloride Level 97 mmol/L (98-107) Carbon Dioxide Level 27 mmol/L (21-32) Anion Gap 11 (6-14) Blood Urea Nitrogen 19 mg/dL (7-20) Creatinine 1.1 mg/dL (0.6-1.0) Estimated GFR (Cockcroft-Gault) 49.1 Glucose Level 121 mg/dL (70-99) Calcium Level 8.4 mg/dL (8.5-10.1) Medications Active Scripts Medications Dose Route/Sig Max Daily Dose Days Date Category Furosemide 40 Mg Tablet 40 Mg PO DAILY 30 06/02/18 Rx Klor-Con M20 (Potassium Chloride) 20 Meq Tab.er.prt 20 Meq PO DAILYWBKFT 06/02/18 Rx Aspirin Ec (Aspirin) 81 Mg Tablet.dr 81 Mg PO DAILYWBKFT 30 06/02/18 Rx Lisinopril 5 Mg Tablet 5 Mg PO DAILY 30 06/02/18 Rx Carvedilol (Carvedilol) 3.125 Mg Tablet 3.125 Mg PO BIDWMEALS 30 06/02/18 Rx Atorvastatin Calcium 40 Mg Tablet 40 Mg PO QHS 30 06/02/18 Rx Brilinta (Ticagrelor) 90 Mg Tablet 90 Mg PO BID 14 06/02/18 Rx Impression . 1. Acute hypoxic respiratory failure secondary to [id number] systolic heart failure. 2. The patient with ischemic cardiomyopathy with an EF of 25%. 3. Recent inferoposterior ST elevation myocardial infarction in May of this year, status post percutaneous coronary intervention/drug-eluting stent to mid RCA.Now with another NSTMI 4. Repeat left heart catheterization with elevated filling pressures on the left side. patent stents to RCA 5. Suspected underlying chronic obstructive pulmonary disease with 40 years of tobacco use. 6. No clinical evidence to suggest pneumonia. Plan . 1. 02 titration 2. Diuresis per cardiology, monitor k, cr 3. Follow Cardiology's recommendations. 4. f/u cxr prn 5. Continue bronchodilators. 6. Antibiotics discontinued, monitor off abx 7. Discussed with EVE Davis MD Aug 08, 2018 07:32
[2018-08-08] MEDS: INSULIN LISPRO 300 UNITS/3 ML INSULN.PEN. SQ SCH ×3 (08:00→17:22)
[2018-08-08] MEDS: POTASSIUM CHLORIDE 20 MEQ TABLET.ER. PO SCH (08:23)
[2018-08-08] MEDS: TICAGRELOR 90 MG TABLET. PO SCH ×2 (08:23→21:23)
[2018-08-08] MEDS: ASPIRIN ENTERIC COATED 81 MG TABLET.DR. PO SCH (08:23)
[2018-08-08] MEDS: LACTOBACILLUS RHAMNOSUS GG 1 CAPSULE. PO SCH ×2 (08:23→21:23)
[2018-08-08] MEDS: FUROSEMIDE 40 MG TABLET. PO SCH (08:23)
[2018-08-08] MEDS: LISINOPRIL 5 MG TABLET. PO SCH (08:24)
[2018-08-08] MEDS: IPRATRPIUM/ALBUTEROL 0.5/2.5MG 3 ML NEBU. NEB SCH ×4 (08:43→20:16)
--- NOTE | 2018-08-08 09:58 | PDOC ---
Provider Note Provider Note Still has junctional rhythm. No new changes. BP stable. No new symptoms. Ambulate today and monitor HR. If no changes tomorrow, may need ICD on friday. Thanks. RITA DAVILA MD Aug 08, 2018 09:58
[2018-08-08 11:00] VITALS: BP 99/38
--- NOTE | 2018-08-08 11:10 | PDOC ---
PROGRESS NOTES Chief Complaint Chief Complaint impression mod-severe protein-caloric malnutrition GENERALIZED WEAKNESS slow to improve acute hypoxic respiratory failure from acute pulmonary edema, acute systolic CHF STEMI: [facility] with 3VD. TROP > 17, S/P PCI/RAMÍREZ to RCA. remains in junctional rhythm 08/08 CHF, with EF 25% Elevated left sided filling pressures. LVEDP 28 mm Hg Severe [place] three vessel coronary disease with patent RCA stents. DIABETES 2 UTI, URINE CULTURE RES 1 Final Escherichia coli Greater than 100,000 colony forming units per mL CONT IV ROCEPHIN Q 24 HRS plan may need icd if remains in junctional rhythm History of Present Illness History of Present Illness plan cvc prn BIPAP LAsix BID pulm and CV following full code iv rocephin consider ICD Vitals Vitals Vital Signs Date Time Temp Pulse Resp B/P (MAP) Pulse Ox O2 Delivery O2 Flow Rate FiO2 08/08/18 08:43 97 Room Air 08/08/18 08:24 120/54 08/08/18 07:00 98.2 55 16 98.2 08/07/18 21:20 2.0 Physical Exam General: Alert, Oriented X3, Cooperative, No acute distress, mild distress Heart: Regular rate, Normal S1, Normal S2 Lungs: Clear, Other (decrease bs) Abdomen: Normal bowel sounds, Soft, No tenderness Extremities: No cyanosis, Normal pulses, Other (1+ bilateral LE edema ) Skin: No significant lesion Labs LABS URINE CULTURE Final Final report URINE CULTURE RES 1 Final Escherichia coli Greater than 100,000 colony forming units per mL Cefazolin <=4 ug/mL Cefazolin with an GIL <=16 predicts susceptibility to the oral agents cefaclor, cefdinir, cefpodoxime, cefprozil, cefuroxime, cephalexin, and loracarbef when used for therapy of uncomplicated urinary tract infections due to E. coli, Klebsiella pneumoniae, and Proteus mirabilis. ANTIMICROBIAL SUSCEPTIBILITY Final Comment S = Susceptible; I = Intermediate; R = Resistant P = Positive; N = Negative MICS are expressed in micrograms per mL Antibiotic RSLT#1 RSLT#2 RSLT#3 RSLT#4 Amoxicillin/Clavulanic Acid S<=2 Ampicillin S<=2 Cefepime S<=0.12 Ceftriaxone S<=0.25 Cefuroxime S<=1 Ciprofloxacin S<=0.25 Ertapenem S<=0.12 Gentamicin S<=1 Imipenem S<=0.25 Levofloxacin S<=0.12 Meropenem S<=0.25 Nitrofurantoin S<=16 Piperacillin/Tazobactam S<=4 Tetracycline S<=1 Tobramycin S<=1 Trimethoprim/Sulfa S<=20 Performed at: [facility] Laboratory Tests Test 08/07/18 12:02 08/07/18 16:56 08/07/18 20:08 08/08/18 04:25 Glucose (Fingerstick) 156 mg/dL (70-99) 179 mg/dL (70-99) 164 mg/dL (70-99) White Blood Count 4.5 x10^3/uL (4.0-11.0) Red Blood Count 3.97 x10^6/uL (3.50-5.40) Hemoglobin 11.5 g/dL (12.0-15.5) Hematocrit 34.2 % (36.0-47.0) Mean Corpuscular Volume 86 fL (79-100) Mean Corpuscular Hemoglobin 29 pg (25-35) Mean Corpuscular Hemoglobin Concent 34 g/dL (31-37) Red Cell Distribution Width 15.3 % (11.5-14.5) Platelet Count 157 x10^3/uL (140-400) Neutrophils (%) (Auto) 71 % (31-73) Lymphocytes (%) (Auto) 20 % (24-48) Monocytes (%) (Auto) 8 % (0-9) Eosinophils (%) (Auto) 0 % (0-3) Basophils (%) (Auto) 1 % (0-3) Neutrophils # (Auto) 3.2 x10^3uL (1.8-7.7) Lymphocytes # (Auto) 0.9 x10^3/uL (1.0-4.8) Monocytes # (Auto) 0.4 x10^3/uL (0.0-1.1) Eosinophils # (Auto) 0.0 x10^3/uL (0.0-0.7) Basophils # (Auto) 0.0 x10^3/uL (0.0-0.2) Sodium Level 135 mmol/L (136-145) Potassium Level 3.6 mmol/L (3.5-5.1) Chloride Level 97 mmol/L (98-107) Carbon Dioxide Level 27 mmol/L (21-32) Anion Gap 11 (6-14) Blood Urea Nitrogen 19 mg/dL (7-20) Creatinine 1.1 mg/dL (0.6-1.0) Estimated GFR (Cockcroft-Gault) 49.1 Glucose Level 121 mg/dL (70-99) Calcium Level 8.4 mg/dL (8.5-10.1) Assessment and Plan Assessmemt and Plan Factors Facilitating Goal Achievement * Motivation level * Prior level of function * Response to training Problem List (body system elements) * Impaired fnctnl mobility * Strength * Balance * Respiration/perfusion * Knowledge-safe techniques Comment Review of Relevant I have reviewed the following items isaias (where applicable) has been applied. Labs Laboratory Tests Test 08/06/18 11:25 08/06/18 11:29 08/06/18 15:45 08/06/18 17:24 Sodium Level 133 mmol/L (136-145) Potassium Level 3.4 mmol/L (3.5-5.1) Chloride Level 96 mmol/L (98-107) Carbon Dioxide Level 27 mmol/L (21-32) Anion Gap 10 (6-14) Blood Urea Nitrogen 22 mg/dL (7-20) Creatinine 1.3 mg/dL (0.6-1.0) Estimated GFR (Cockcroft-Gault) 40.5 Glucose Level 173 mg/dL (70-99) Calcium Level 7.9 mg/dL (8.5-10.1) Magnesium Level 2.1 mg/dL (1.8-2.4) Glucose (Fingerstick) 179 mg/dL (70-99) 118 mg/dL (70-99) Troponin I Quantitative 8.580 ng/mL (0.000-0.055) Test 08/06/18 20:48 08/07/18 04:40 08/07/18 07:01 08/07/18 12:02 Glucose (Fingerstick) 151 mg/dL (70-99) 104 mg/dL (70-99) 156 mg/dL (70-99) White Blood Count 4.0 x10^3/uL (4.0-11.0) Red Blood Count 3.87 x10^6/uL (3.50-5.40) Hemoglobin 11.2 g/dL (12.0-15.5) Hematocrit 33.1 % (36.0-47.0) Mean Corpuscular Volume 86 fL (79-100) Mean Corpuscular Hemoglobin 29 pg (25-35) Mean Corpuscular Hemoglobin Concent 34 g/dL (31-37) Red Cell Distribution Width 14.9 % (11.5-14.5) Platelet Count 159 x10^3/uL (140-400) Neutrophils (%) (Auto) 66 % (31-73) Lymphocytes (%) (Auto) 25 % (24-48) Monocytes (%) (Auto) 8 % (0-9) Eosinophils (%) (Auto) 0 % (0-3) Basophils (%) (Auto) 0 % (0-3) Neutrophils # (Auto) 2.7 x10^3uL (1.8-7.7) Lymphocytes # (Auto) 1.0 x10^3/uL (1.0-4.8) Monocytes # (Auto) 0.3 x10^3/uL (0.0-1.1) Eosinophils # (Auto) 0.0 x10^3/uL (0.0-0.7) Basophils # (Auto) 0.0 x10^3/uL (0.0-0.2) Sodium Level 136 mmol/L (136-145) Potassium Level 3.6 mmol/L (3.5-5.1) Chloride Level 99 mmol/L (98-107) Carbon Dioxide Level 27 mmol/L (21-32) Anion Gap 10 (6-14) Blood Urea Nitrogen 21 mg/dL (7-20) Creatinine 1.2 mg/dL (0.6-1.0) Estimated GFR (Cockcroft-Gault) 44.4 BUN/Creatinine Ratio 18 (6-20) Glucose Level 109 mg/dL (70-99) Calcium Level 8.2 mg/dL (8.5-10.1) Total Bilirubin 0.8 mg/dL (0.2-1.0) Aspartate Amino Transf (AST/SGOT) 20 U/L (15-37) Alanine Aminotransferase (ALT/SGPT) 15 U/L (14-59) Alkaline Phosphatase 54 U/L (46-116) Total Protein 6.5 g/dL (6.4-8.2) Albumin 2.9 g/dL (3.4-5.0) Albumin/Globulin Ratio 0.8 (1.0-1.7) Test 08/07/18 16:56 08/07/18 20:08 08/08/18 04:25 Glucose (Fingerstick) 179 mg/dL (70-99) 164 mg/dL (70-99) White Blood Count 4.5 x10^3/uL (4.0-11.0) Red Blood Count 3.97 x10^6/uL (3.50-5.40) Hemoglobin 11.5 g/dL (12.0-15.5) Hematocrit 34.2 % (36.0-47.0) Mean Corpuscular Volume 86 fL (79-100) Mean Corpuscular Hemoglobin 29 pg (25-35) Mean Corpuscular Hemoglobin Concent 34 g/dL (31-37) Red Cell Distribution Width 15.3 % (11.5-14.5) Platelet Count 157 x10^3/uL (140-400) Neutrophils (%) (Auto) 71 % (31-73) Lymphocytes (%) (Auto) 20 % (24-48) Monocytes (%) (Auto) 8 % (0-9) Eosinophils (%) (Auto) 0 % (0-3) Basophils (%) (Auto) 1 % (0-3) Neutrophils # (Auto) 3.2 x10^3uL (1.8-7.7) Lymphocytes # (Auto) 0.9 x10^3/uL (1.0-4.8) Monocytes # (Auto) 0.4 x10^3/uL (0.0-1.1) Eosinophils # (Auto) 0.0 x10^3/uL (0.0-0.7) Basophils # (Auto) 0.0 x10^3/uL (0.0-0.2) Sodium Level 135 mmol/L (136-145) Potassium Level 3.6 mmol/L (3.5-5.1) Chloride Level 97 mmol/L (98-107) Carbon Dioxide Level 27 mmol/L (21-32) Anion Gap 11 (6-14) Blood Urea Nitrogen 19 mg/dL (7-20) Creatinine 1.1 mg/dL (0.6-1.0) Estimated GFR (Cockcroft-Gault) 49.1 Glucose Level 121 mg/dL (70-99) Calcium Level 8.4 mg/dL (8.5-10.1) Laboratory Tests Test 08/07/18 12:02 08/07/18 16:56 08/07/18 20:08 08/08/18 04:25 Glucose (Fingerstick) 156 mg/dL (70-99) 179 mg/dL (70-99) 164 mg/dL (70-99) White Blood Count 4.5 x10^3/uL (4.0-11.0) Red Blood Count 3.97 x10^6/uL (3.50-5.40) Hemoglobin 11.5 g/dL (12.0-15.5) Hematocrit 34.2 % (36.0-47.0) Mean Corpuscular Volume 86 fL (79-100) Mean Corpuscular Hemoglobin 29 pg (25-35) Mean Corpuscular Hemoglobin Concent 34 g/dL (31-37) Red Cell Distribution Width 15.3 % (11.5-14.5) Platelet Count 157 x10^3/uL (140-400) Neutrophils (%) (Auto) 71 % (31-73) Lymphocytes (%) (Auto) 20 % (24-48) Monocytes (%) (Auto) 8 % (0-9) Eosinophils (%) (Auto) 0 % (0-3) Basophils (%) (Auto) 1 % (0-3) Neutrophils # (Auto) 3.2 x10^3uL (1.8-7.7) Lymphocytes # (Auto) 0.9 x10^3/uL (1.0-4.8) Monocytes # (Auto) 0.4 x10^3/uL (0.0-1.1) Eosinophils # (Auto) 0.0 x10^3/uL (0.0-0.7) Basophils # (Auto) 0.0 x10^3/uL (0.0-0.2) Sodium Level 135 mmol/L (136-145) Potassium Level 3.6 mmol/L (3.5-5.1) Chloride Level 97 mmol/L (98-107) Carbon Dioxide Level 27 mmol/L (21-32) Anion Gap 11 (6-14) Blood Urea Nitrogen 19 mg/dL (7-20) Creatinine 1.1 mg/dL (0.6-1.0) Estimated GFR (Cockcroft-Gault) 49.1 Glucose Level 121 mg/dL (70-99) Calcium Level 8.4 mg/dL (8.5-10.1) Microbiology 08/04/18 Blood Culture - Preliminary, Resulted NO GROWTH AFTER 4 DAYS 08/04/18 Urine Culture - Final, Complete 08/04/18 Urine Culture Result 1 (GIL) - Final, Complete 08/04/18 Antimicrobic Susceptibility - Final, Complete Medications Current Medications Furosemide (Lasix) 40 mg 1X ONCE IVP Last administered on 08/04/18at 02:30; Start 08/04/18 at 02:15; Stop 08/04/18 at 02:16; Status DC Ondansetron HCl (Zofran) 4 mg PRN Q8HRS PRN IV NAUSEA/VOMITING; Start 08/04/18 at 03:00; Stop 08/05/18 at 02:59; Status DC Aspirin (Children'S Aspirin) 324 mg 1X ONCE PO ; Start 08/04/18 at 04:30; Stop 08/04/18 at 04:31; Status DC Ceftriaxone Sodium (Rocephin) 1 gm Q24H IVP Last administered on 08/04/18at 04: 39; Start 08/04/18 at 04:30; Stop 08/04/18 at 11:16; Status DC Insulin Human Lispro (HumaLOG) 0-7 UNITS TIDWMEALS SQ ; Start 08/04/18 at 08:00 ; Stop 08/05/18 at 15:13; Status DC Dextrose (Dextrose 50%-Water Syringe) 12.5 gm PRN Q15MIN PRN IV SEE COMMENTS; Start 08/04/18 at 04:15; Status Cancel Hydralazine HCl (Apresoline Inj) 10 mg PRN Q6HRS PRN IVP ELEVATED BP, SEE COMMENTS; Start 08/04/18 at 04:15 Heparin Sodium/ Dextrose 500 ml @ 0 mls/hr CONT PRN IV SEE I/O RECORD Last administered on 08/04/18at 06:52; Start 08/04/18 at 06:30; Stop 08/05/18 at 15:13 ; Status DC Heparin Sodium (Porcine) (Heparin Sodium) 1,650 unit PRN Q6HRS PRN IV FOR UFH LEVEL LESS THAN 0.2; Start 08/04/18 at 06:30; Stop 08/05/18 at 15:13; Status DC Aspirin (Ecotrin) 81 mg DAILYWBKFT PO Last administered on 08/08/18 08:23; Start 08/05/18 at 08:00 Atorvastatin Calcium (Lipitor) 40 mg QHS PO Last administered on 08/07/18at 20: 29; Start 08/04/18 at 21:00 Carvedilol (Coreg) 3.125 mg BIDWMEALS PO Last administered on 08/06/18at 09:00; Start 08/04/18 at 17:00; Stop 08/06/18 at 14:57; Status DC Potassium Chloride (Klor-Con) 20 meq DAILYWBKFT PO Last administered on at 08:23; Start 08/04/18 at 11:00 Ticagrelor (Brilinta) 90 mg BID PO Last administered on 08/08/18 08:23; Start 08/04/18 at 21:00 Lisinopril (Prinivil) 5 mg DAILY PO Last administered on 08/08/18at 08:24; Start 08/04/18 at 11:00 Info (Anti-Coagulation Monitoring By Pharmacy) 1 each PRN DAILY PRN MC SEE COMMENTS Last administered on 08/04/18at 13:17; Start 08/04/18 at 10:15; Stop at 15:13; Status DC Influenza Virus Vaccine (Afluria Trivalent [id number] Syringe) 0.5 ml ONCE ONCE VAX IM Last administered on 08/05/18at 17:07; Start 08/04/18 at 11:00; Stop 05/13 at 11:02; Status DC Albuterol/ Ipratropium (Duoneb) 3 ml RTQID NEB Last administered on 08/08/18at 08:43; Start 08/04/18 at 12:00 Iodixanol (Visipaque 320) 100 ml STK-MED ONCE .ROUTE ; Start 08/04/18 at 15:20; Stop 08/04/18 at 15:21; Status DC Lidocaine HCl (Xylocaine-Mpf 1% 2ml Vial) 2 ml STK-MED ONCE .ROUTE ; Start 08/04 at 15:20; Stop 08/04/18 at 15:21; Status DC Heparin Sodium/ Sodium Chloride 1,000 ml @ As Directed STK-MED ONCE .ROUTE ; Start 08/04/18 at 15:20; Stop 08/04/18 at 15:21; Status DC Lidocaine HCl (Lidocaine 1% 20ml Vial) 20 ml STK-MED ONCE .ROUTE ; Start at 15:27; Stop 08/04/18 at 15:28; Status DC Midazolam HCl (Versed) 2 mg STK-MED ONCE .ROUTE ; Start 08/04/18 at 15:29; Stop 08/04/18 at 15:30; Status DC Fentanyl Citrate (Fentanyl 2ml Vial) 100 mcg STK-MED ONCE .ROUTE ; Start at 15:29; Stop 08/04/18 at 15:30; Status DC Heparin Sodium/ Sodium Chloride (HEPARIN for ARTERIAL LINE FLUSH) 1,000 unit 1X ONCE IART Last administered on 08/04/18at 15:45; Start 08/04/18 at 15:45; Stop 08/04/18 at 15:46; Status DC Heparin Sodium/ Sodium Chloride (HEPARIN for ARTERIAL LINE FLUSH) 1,000 unit 1X ONCE IART Last administered on 08/04/18at 15:45; Start 08/04/18 at 15:45; Stop 08/04/18 at 15:46; Status DC Midazolam HCl (Versed) 2 mg 1X ONCE IV Last administered on 08/04/18at 15:45; Start 08/04/18 at 15:45; Stop 08/04/18 at 15:46; Status DC Fentanyl Citrate (Fentanyl 2ml Vial) 100 mcg 1X ONCE IV Last administered on at 15:45; Start 08/04/18 at 15:45; Stop 08/04/18 at 15:46; Status DC Iohexol (Omnipaque 300 Mg/ml) 100 ml 1X ONCE IART Last administered on at 15:45; Start 08/04/18 at 15:45; Stop 08/04/18 at 15:46; Status DC Lidocaine HCl (Lidocaine 1% 20ml Vial) 20 ml 1X ONCE INJ Last administered on 08/04/18at 15:45; Start 08/04/18 at 15:45; Stop 08/04/18 at 15:46; Status DC Info (CONTRAST GIVEN -- Rx MONITORING) 1 each PRN DAILY PRN MC SEE COMMENTS; Start 08/04/18 at 15:45; Stop 08/06/18 at 15:44; Status DC Furosemide (Lasix) 40 mg 1X ONCE IVP Last administered on 08/04/18at 16:40; Start 08/04/18 at 16:45; Stop 08/04/18 at 16:46; Status DC Furosemide (Lasix) 20 mg 1X ONCE IVP Last administered on 08/05/18at 08:54; Start 08/05/18 at 08:00; Stop 08/05/18 at 08:01; Status DC Insulin Human Lispro (HumaLOG) 0-5 UNITS TIDWMEALS SQ Last administered on 08/07at 17:48; Start 08/05/18 at 17:00 Dextrose (Dextrose 50%-Water Syringe) 12.5 gm PRN Q15MIN PRN IV SEE COMMENTS; Start 08/05/18 at 14:15 Albuterol Sulfate (Ventolin Neb Soln) 2.5 mg PRN Q2HR PRN NEB SHORTNESS OF BREATH Last administered on 08/06/18at 02:08; Start 08/06/18 at 02:00 Ceftriaxone Sodium (Rocephin) 1 gm Q24H IVP Last administered on 08/07/18at 14: 09; Start 08/06/18 at 15:00 Furosemide (Lasix) 40 mg BID92 IVP Last administered on 08/07/18at 14:09; Start 08/06/18 at 15:00; Stop 08/07/18 at 15:02; Status DC Enoxaparin Sodium (Lovenox Per Pharmacy Prophylaxis Dosing) 1 each PRN DAILY PRN MC SEE COMMENTS; Start 08/06/18 at 15:15 Enoxaparin Sodium (Lovenox 40mg Syringe) 40 mg Q24H SQ Last administered on at 16:42; Start 08/06/18 at 16:00 Potassium Chloride (Klor-Con) 20 meq 1X ONCE PO Last administered on at 15:30; Start 08/06/18 at 15:15; Stop 08/06/18 at 15:16; Status DC Furosemide (Lasix) 40 mg 1X ONCE IVP Last administered on 08/06/18at 20:47; Start 08/06/18 at 21:00; Stop 08/06/18 at 21:01; Status DC Lactobacillus Rhamnosus (Culturelle) 1 cap BID PO Last administered on at 08:23; Start 08/07/18 at 21:00 Furosemide (Lasix) 40 mg DAILY PO Last administered on 08/08/18at 08:23; Start 08/08/18 at 09:00 Active Scripts Active Furosemide 40 Mg Tablet 40 Mg PO DAILY 30 Days Klor-Con M20 (Potassium Chloride) 20 Meq Tab.er.prt 20 Meq PO DAILYWBKFT Aspirin Ec (Aspirin) 81 Mg Tablet.dr 81 Mg PO DAILYWBKFT 30 Days Lisinopril 5 Mg Tablet 5 Mg PO DAILY 30 Days Carvedilol (Carvedilol) 3.125 Mg Tablet 3.125 Mg PO BIDWMEALS 30 Days Atorvastatin Calcium 40 Mg Tablet 40 Mg PO QHS 30 Days Brilinta (Ticagrelor) 90 Mg Tablet 90 Mg PO BID 14 Days Vitals/I & O Vital Sign - Last 24 Hours 08/07/18 08/07/18 08/07/18 08/07/18 11:40 12:13 14:06 15:00 Temp 99.0 99.0 Pulse 97 58 Resp 16 B/P (MAP) 114/66 (82) 113/52 (72) Pulse Ox 99 98 99 O2 Delivery Nasal Cannula Nasal Cannula Room Air O2 Flow Rate 3.0 1.0 08/07/18 08/07/18 08/07/18 08/07/18 16:09 19:07 19:25 21:20 Temp 98.0 98.0 Pulse 60 Resp 22 B/P (MAP) 113/53 (73) Pulse Ox 94 96 O2 Delivery Room Air Room Air Room Air Nasal Cannula O2 Flow Rate 2.0 08/07/18 08/08/18 08/08/18 08/08/18 22:11 03:59 07:00 07:59 Temp 98.7 99.1 98.2 98.7 99.1 98.2 Pulse 62 63 55 Resp 20 19 16 B/P (MAP) 135/63 (87) 131/60 (83) 120/54 (76) Pulse Ox 96 94 97 O2 Delivery Room Air Room Air Room Air Room Air 08/08/18 08/08/18 08:24 08:43 B/P (MAP) 120/54 Pulse Ox 97 O2 Delivery Room Air Intake and Output 08/07/18 08/07/18 08/08/18 15:00 23:00 07:00 Intake Total 240 ml 400 ml Output Total 850 ml 250 ml 100 ml Balance -610 ml 150 ml -100 ml LEONEL THAKUR MD Aug 08, 2018 11:10
[2018-08-08 15:00] VITALS: BP 120/54
[2018-08-08] MEDS: ENOXAPARIN 40 MG/0.4 ML SYRINGE. SQ SCH (15:05)
[2018-08-08 19:49] VITALS: BP 123/59
[2018-08-08] MEDS: ATORVASTATIN CALCIUM 40 MG TABLET. PO SCH (21:23)
[2018-08-08] MEDS: CEFDINIR 300 MG CAPSULE PO SCH (21:24)
[2018-08-08 23:36] VITALS: BP 126/59
[2018-08-09 03:46] VITALS: BP 114/54
[2018-08-09 07:00] VITALS: BP 113/53
--- NOTE | 2018-08-09 07:03 | PDOC ---
PULMONARY PROGRESS NOTES Subjective no sob, has occ cough, no pain Vitals Vital Signs Date Time Temp Pulse Resp B/P (MAP) Pulse Ox O2 Delivery O2 Flow Rate FiO2 08/09/18 03:46 98.3 60 17 114/54 (74) 96 Room Air 98.3 ROS: No Nausea, No Chest Pain General: Alert, No acute distress HEENT: Other (nc at perrl) Lungs: Other (decrease bs) Cardiovascular: S1, S2 Abdomen: Soft, Non-tender Neuro Exam: Alert Extremities: No Edema Skin: Warm Labs Laboratory Tests Test 08/07/18 07:01 08/07/18 12:02 08/07/18 16:56 08/07/18 20:08 Glucose (Fingerstick) 104 mg/dL (70-99) 156 mg/dL (70-99) 179 mg/dL (70-99) 164 mg/dL (70-99) Test 08/08/18 04:25 08/08/18 07:57 08/08/18 11:21 08/08/18 17:13 White Blood Count 4.5 x10^3/uL (4.0-11.0) Red Blood Count 3.97 x10^6/uL (3.50-5.40) Hemoglobin 11.5 g/dL (12.0-15.5) Hematocrit 34.2 % (36.0-47.0) Mean Corpuscular Volume 86 fL (79-100) Mean Corpuscular Hemoglobin 29 pg (25-35) Mean Corpuscular Hemoglobin Concent 34 g/dL (31-37) Red Cell Distribution Width 15.3 % (11.5-14.5) Platelet Count 157 x10^3/uL (140-400) Neutrophils (%) (Auto) 71 % (31-73) Lymphocytes (%) (Auto) 20 % (24-48) Monocytes (%) (Auto) 8 % (0-9) Eosinophils (%) (Auto) 0 % (0-3) Basophils (%) (Auto) 1 % (0-3) Neutrophils # (Auto) 3.2 x10^3uL (1.8-7.7) Lymphocytes # (Auto) 0.9 x10^3/uL (1.0-4.8) Monocytes # (Auto) 0.4 x10^3/uL (0.0-1.1) Eosinophils # (Auto) 0.0 x10^3/uL (0.0-0.7) Basophils # (Auto) 0.0 x10^3/uL (0.0-0.2) Sodium Level 135 mmol/L (136-145) Potassium Level 3.6 mmol/L (3.5-5.1) Chloride Level 97 mmol/L (98-107) Carbon Dioxide Level 27 mmol/L (21-32) Anion Gap 11 (6-14) Blood Urea Nitrogen 19 mg/dL (7-20) Creatinine 1.1 mg/dL (0.6-1.0) Estimated GFR (Cockcroft-Gault) 49.1 Glucose Level 121 mg/dL (70-99) Calcium Level 8.4 mg/dL (8.5-10.1) Glucose (Fingerstick) 118 mg/dL (70-99) 152 mg/dL (70-99) 187 mg/dL (70-99) Test 08/08/18 20:41 Glucose (Fingerstick) 140 mg/dL (70-99) Laboratory Tests Test 08/08/18 07:57 08/08/18 11:21 08/08/18 17:13 08/08/18 20:41 Glucose (Fingerstick) 118 mg/dL (70-99) 152 mg/dL (70-99) 187 mg/dL (70-99) 140 mg/dL (70-99) Medications Active Scripts Medications Dose Route/Sig Max Daily Dose Days Date Category Furosemide 40 Mg Tablet 40 Mg PO DAILY 06/02/18 Rx Klor-Con M20 (Potassium Chloride) 20 Meq Tab.er.prt 20 Meq PO DAILYWBKFT 06/02/18 Rx Aspirin Ec (Aspirin) 81 Mg Tablet.dr 81 Mg PO DAILYWBKFT 06/02/18 Rx Lisinopril 5 Mg Tablet 5 Mg PO DAILY 06/02/18 Rx Carvedilol (Carvedilol) 3.125 Mg Tablet 3.125 Mg PO BIDWMEALS 06/02/18 Rx Atorvastatin Calcium 40 Mg Tablet 40 Mg PO QHS 30 06/02/18 Rx Brilinta (Ticagrelor) 90 Mg Tablet 90 Mg PO BID 14 06/02/18 Rx Impression . 1. Acute hypoxic respiratory failure secondary to [id number] systolic heart failure. 2. The patient with ischemic cardiomyopathy with an EF of 25%. 3. Recent inferoposterior ST elevation myocardial infarction in May of this year, status post percutaneous coronary intervention/drug-eluting stent to mid RCA.Now with another NSTMI 4. Repeat left heart catheterization with elevated filling pressures on the left side. patent stents to RCA 5. Suspected underlying chronic obstructive pulmonary disease with 40 years of tobacco use. 6. No clinical evidence to suggest pneumonia. Plan . 1. 02 titration 2. Diuresis per cardiology, monitor k, cr 3. Follow Cardiology's recommendations. 4. increase activity 5. Continue bronchodilators. 6. Antibiotics discontinued, monitor off abx Discussed with EVE Davis MD Aug 09, 2018 07:03
[2018-08-09] MEDS: IPRATRPIUM/ALBUTEROL 0.5/2.5MG 3 ML NEBU. NEB SCH ×3 (07:27→15:14)
[2018-08-09] MEDS: ASPIRIN ENTERIC COATED 81 MG TABLET.DR. PO SCH (07:53)
[2018-08-09] MEDS: LACTOBACILLUS RHAMNOSUS GG 1 CAPSULE. PO SCH (07:53)
[2018-08-09] MEDS: LISINOPRIL 5 MG TABLET. PO SCH (07:53)
[2018-08-09] MEDS: TICAGRELOR 90 MG TABLET. PO SCH (07:53)
[2018-08-09] MEDS: POTASSIUM CHLORIDE 20 MEQ TABLET.ER. PO SCH (07:53)
[2018-08-09] MEDS: CEFDINIR 300 MG CAPSULE PO SCH (07:53)
[2018-08-09] MEDS: FUROSEMIDE 40 MG TABLET. PO SCH (07:54)
[2018-08-09] MEDS: INSULIN LISPRO 300 UNITS/3 ML INSULN.PEN. SQ SCH ×2 (07:55→11:58)
[2018-08-09 08:49] LABS: ALBUMIN/GLOBULIN RATIO 0.7 (1.0-1.7); CALCIUM 8.8 mg/dL (8.5-10.1); GFR 54.8; POTASSIUM 4.2 mmol/L (3.5-5.1); TOTAL BILIRUBIN 1.5 mg/dL (0.2-1.0); TOTAL PROTEIN 7.2 g/dL (6.4-8.2)
--- NOTE | 2018-08-09 10:35 | PDOC ---
Provider Note Provider Note No new issues. With ambulation HR went up to 80's. She likely has a short [place] interval on EKG, now more appears SR No acute indication for ICD. Ok to DC home on lisinopril, lasix, asa, ticagrelor Hold home coreg. f/u in the office in 2 weeks, we will arrange. Will mail monitor to her house for evaluation of HR RITA DAVILA MD Aug 09, 2018 10:35
[2018-08-09 10:50] VITALS: BP 112/30
--- NOTE | 2018-08-09 11:25 | PDOC ---
PROGRESS NOTES Chief Complaint Chief Complaint impression mod-severe protein-caloric malnutrition GENERALIZED WEAKNESS slow to improve acute hypoxic respiratory failure from acute pulmonary edema, acute systolic CHF STEMI: [facility] with 3VD. TROP > 17, S/P PCI/RAMÍREZ to RCA. remains in junctional rhythm 08/08 CHF, with EF 25% Elevated left sided filling pressures. LVEDP 28 mm Hg Severe hopi three vessel coronary disease with patent RCA stents. DIABETES 2 UTI, URINE CULTURE RES 1 Final Escherichia coli Greater than 100,000 colony forming units per mL CONT IV ROCEPHIN Q 24 HRS plan may need icd if remains in junctional rhythm 08/09 No acute indication for ICD. after ekg review Ok to DC home on lisinopril, lasix, asa, ticagrelor Hold home coreg. f/u in the office in 2 weeks, cards will arrange. Will mail monitor to her house for evaluation of HR History of Present Illness History of Present Illness plan cvc prn BIPAP LAsix BID pulm and CV following full code iv rocephin consider ICD Vitals Vitals Vital Signs Date Time Temp Pulse Resp B/P (MAP) Pulse Ox O2 Delivery O2 Flow Rate FiO2 08/09/18 11:18 96 Room Air 08/09/18 10:50 97.7 62 18 112/30 (57) 97.7 Physical Exam General: Alert, Oriented X3, Cooperative, No acute distress, mild distress Heart: Regular rate, Normal S1, Normal S2 Lungs: Other (decrease bs) Abdomen: Normal bowel sounds, Soft, No tenderness Extremities: No cyanosis, Normal pulses, Other (1+ bilateral LE edema ) Skin: No significant lesion Labs LABS Laboratory Tests Test 08/08/18 17:13 08/08/18 20:41 08/09/18 07:12 08/09/18 08:10 Glucose (Fingerstick) 187 mg/dL (70-99) 140 mg/dL (70-99) 108 mg/dL (70-99) Sodium Level 135 mmol/L (136-145) Potassium Level 4.2 mmol/L (3.5-5.1) Chloride Level 97 mmol/L (98-107) Carbon Dioxide Level 30 mmol/L (21-32) Anion Gap 8 (6-14) Blood Urea Nitrogen 16 mg/dL (7-20) Creatinine 1.0 mg/dL (0.6-1.0) Estimated GFR (Cockcroft-Gault) 54.8 BUN/Creatinine Ratio 16 (6-20) Glucose Level 121 mg/dL (70-99) Calcium Level 8.8 mg/dL (8.5-10.1) Total Bilirubin 1.5 mg/dL (0.2-1.0) Aspartate Amino Transf (AST/SGOT) 23 U/L (15-37) Alanine Aminotransferase (ALT/SGPT) 19 U/L (14-59) Alkaline Phosphatase 61 U/L (46-116) Total Protein 7.2 g/dL (6.4-8.2) Albumin 3.0 g/dL (3.4-5.0) Albumin/Globulin Ratio 0.7 (1.0-1.7) Test 08/09/18 10:58 Glucose (Fingerstick) 174 mg/dL (70-99) Comment Review of Relevant I have reviewed the following items isaias (where applicable) has been applied. Labs Laboratory Tests Test 08/07/18 12:02 08/07/18 16:56 08/07/18 20:08 08/08/18 04:25 Glucose (Fingerstick) 156 mg/dL (70-99) 179 mg/dL (70-99) 164 mg/dL (70-99) White Blood Count 4.5 x10^3/uL (4.0-11.0) Red Blood Count 3.97 x10^6/uL (3.50-5.40) Hemoglobin 11.5 g/dL (12.0-15.5) Hematocrit 34.2 % (36.0-47.0) Mean Corpuscular Volume 86 fL (79-100) Mean Corpuscular Hemoglobin 29 pg (25-35) Mean Corpuscular Hemoglobin Concent 34 g/dL (31-37) Red Cell Distribution Width 15.3 % (11.5-14.5) Platelet Count 157 x10^3/uL (140-400) Neutrophils (%) (Auto) 71 % (31-73) Lymphocytes (%) (Auto) 20 % (24-48) Monocytes (%) (Auto) 8 % (0-9) Eosinophils (%) (Auto) 0 % (0-3) Basophils (%) (Auto) 1 % (0-3) Neutrophils # (Auto) 3.2 x10^3uL (1.8-7.7) Lymphocytes # (Auto) 0.9 x10^3/uL (1.0-4.8) Monocytes # (Auto) 0.4 x10^3/uL (0.0-1.1) Eosinophils # (Auto) 0.0 x10^3/uL (0.0-0.7) Basophils # (Auto) 0.0 x10^3/uL (0.0-0.2) Sodium Level 135 mmol/L (136-145) Potassium Level 3.6 mmol/L (3.5-5.1) Chloride Level 97 mmol/L (98-107) Carbon Dioxide Level 27 mmol/L (21-32) Anion Gap 11 (6-14) Blood Urea Nitrogen 19 mg/dL (7-20) Creatinine 1.1 mg/dL (0.6-1.0) Estimated GFR (Cockcroft-Gault) 49.1 Glucose Level 121 mg/dL (70-99) Calcium Level 8.4 mg/dL (8.5-10.1) Test 08/08/18 07:57 08/08/18 11:21 08/08/18 17:13 08/08/18 20:41 Glucose (Fingerstick) 118 mg/dL (70-99) 152 mg/dL (70-99) 187 mg/dL (70-99) 140 mg/dL (70-99) Test 08/09/18 07:12 08/09/18 08:10 08/09/18 10:58 Glucose (Fingerstick) 108 mg/dL (70-99) 174 mg/dL (70-99) Sodium Level 135 mmol/L (136-145) Potassium Level 4.2 mmol/L (3.5-5.1) Chloride Level 97 mmol/L (98-107) Carbon Dioxide Level 30 mmol/L (21-32) Anion Gap 8 (6-14) Blood Urea Nitrogen 16 mg/dL (7-20) Creatinine 1.0 mg/dL (0.6-1.0) Estimated GFR (Cockcroft-Gault) 54.8 BUN/Creatinine Ratio 16 (6-20) Glucose Level 121 mg/dL (70-99) Calcium Level 8.8 mg/dL (8.5-10.1) Total Bilirubin 1.5 mg/dL (0.2-1.0) Aspartate Amino Transf (AST/SGOT) 23 U/L (15-37) Alanine Aminotransferase (ALT/SGPT) 19 U/L (14-59) Alkaline Phosphatase 61 U/L (46-116) Total Protein 7.2 g/dL (6.4-8.2) Albumin 3.0 g/dL (3.4-5.0) Albumin/Globulin Ratio 0.7 (1.0-1.7) Laboratory Tests Test 08/08/18 17:13 08/08/18 20:41 08/09/18 07:12 08/09/18 08:10 Glucose (Fingerstick) 187 mg/dL (70-99) 140 mg/dL (70-99) 108 mg/dL (70-99) Sodium Level 135 mmol/L (136-145) Potassium Level 4.2 mmol/L (3.5-5.1) Chloride Level 97 mmol/L (98-107) Carbon Dioxide Level 30 mmol/L (21-32) Anion Gap 8 (6-14) Blood Urea Nitrogen 16 mg/dL (7-20) Creatinine 1.0 mg/dL (0.6-1.0) Estimated GFR (Cockcroft-Gault) 54.8 BUN/Creatinine Ratio 16 (6-20) Glucose Level 121 mg/dL (70-99) Calcium Level 8.8 mg/dL (8.5-10.1) Total Bilirubin 1.5 mg/dL (0.2-1.0) Aspartate Amino Transf (AST/SGOT) 23 U/L (15-37) Alanine Aminotransferase (ALT/SGPT) 19 U/L (14-59) Alkaline Phosphatase 61 U/L (46-116) Total Protein 7.2 g/dL (6.4-8.2) Albumin 3.0 g/dL (3.4-5.0) Albumin/Globulin Ratio 0.7 (1.0-1.7) Test 08/09/18 10:58 Glucose (Fingerstick) 174 mg/dL (70-99) Microbiology 08/04/18 Blood Culture - Final, Complete NO GROWTH AFTER 5 DAYS 08/04/18 Urine Culture - Final, Complete 08/04/18 Urine Culture Result 1 (GIL) - Final, Complete 08/04/18 Antimicrobic Susceptibility - Final, Complete Medications Current Medications Furosemide (Lasix) 40 mg 1X ONCE IVP Last administered on 08/04/18at 02:30; Start 08/04/18 at 02:15; Stop 08/04/18 at 02:16; Status DC Ondansetron HCl (Zofran) 4 mg PRN Q8HRS PRN IV NAUSEA/VOMITING; Start 08/04/18 at 03:00; Stop 08/05/18 at 02:59; Status DC Aspirin (Children'S Aspirin) 324 mg 1X ONCE PO ; Start 08/04/18 at 04:30; Stop 08/04/18 at 04:31; Status DC Ceftriaxone Sodium (Rocephin) 1 gm Q24H IVP Last administered on 08/04/18at 04: 39; Start 08/04/18 at 04:30; Stop 08/04/18 at 11:16; Status DC Insulin Human Lispro (HumaLOG) 0-7 UNITS TIDWMEALS SQ ; Start 08/04/18 at 08:00 ; Stop 08/05/18 at 15:13; Status DC Dextrose (Dextrose 50%-Water Syringe) 12.5 gm PRN Q15MIN PRN IV SEE COMMENTS; Start 08/04/18 at 04:15; Status Cancel Hydralazine HCl (Apresoline Inj) 10 mg PRN Q6HRS PRN IVP ELEVATED BP, SEE COMMENTS; Start 08/04/18 at 04:15 Heparin Sodium/ Dextrose 500 ml @ 0 mls/hr CONT PRN IV SEE I/O RECORD Last administered on 08/04/18at 06:52; Start 08/04/18 at 06:30; Stop 08/05/18 at 15:13 ; Status DC Heparin Sodium (Porcine) (Heparin Sodium) 1,650 unit PRN Q6HRS PRN IV FOR UFH LEVEL LESS THAN 0.2; Start 08/04/18 at 06:30; Stop 08/05/18 at 15:13; Status DC Aspirin (Ecotrin) 81 mg DAILYWBKFT PO Last administered on 08/09/18at 07:53; Start 08/05/18 at 08:00 Atorvastatin Calcium (Lipitor) 40 mg QHS PO Last administered on 08/08/18at 21: 23; Start 08/04/18 at 21:00 Carvedilol (Coreg) 3.125 mg BIDWMEALS PO Last administered on 08/06/18at 09:00; Start 08/04/18 at 17:00; Stop 08/06/18 at 14:57; Status DC Potassium Chloride (Klor-Con) 20 meq DAILYWBKFT PO Last administered on at 07:53; Start 08/04/18 at 11:00 Ticagrelor (Brilinta) 90 mg BID PO Last administered on 08/09/18at 07:53; Start 08/04/18 at 21:00 Lisinopril (Prinivil) 5 mg DAILY PO Last administered on 08/09/18at 07:53; Start 08/04/18 at 11:00 Info (Anti-Coagulation Monitoring By Pharmacy) 1 each PRN DAILY PRN MC SEE COMMENTS Last administered on 08/04/18at 13:17; Start 08/04/18 at 10:15; Stop at 15:13; Status DC Influenza Virus Vaccine (Afluria Trivalent [id number] Syringe) 0.5 ml ONCE ONCE VAX IM Last administered on 08/05/18at 17:07; Start 08/04/18 at 11:00; Stop 05/13 at 11:02; Status DC Albuterol/ Ipratropium (Duoneb) 3 ml RTQID NEB Last administered on 08/09/18at 11:17; Start 08/04/18 at 12:00 Iodixanol (Visipaque 320) 100 ml STK-MED ONCE .ROUTE ; Start 08/04/18 at 15:20; Stop 08/04/18 at 15:21; Status DC Lidocaine HCl (Xylocaine-Mpf 1% 2ml Vial) 2 ml STK-MED ONCE .ROUTE ; Start 08/04 at 15:20; Stop 08/04/18 at 15:21; Status DC Heparin Sodium/ Sodium Chloride 1,000 ml @ As Directed STK-MED ONCE .ROUTE ; Start 08/04/18 at 15:20; Stop 08/04/18 at 15:21; Status DC Lidocaine HCl (Lidocaine 1% 20ml Vial) 20 ml STK-MED ONCE .ROUTE ; Start at 15:27; Stop 08/04/18 at 15:28; Status DC Midazolam HCl (Versed) 2 mg STK-MED ONCE .ROUTE ; Start 08/04/18 at 15:29; Stop 08/04/18 at 15:30; Status DC Fentanyl Citrate (Fentanyl 2ml Vial) 100 mcg STK-MED ONCE .ROUTE ; Start at 15:29; Stop 08/04/18 at 15:30; Status DC Heparin Sodium/ Sodium Chloride (HEPARIN for ARTERIAL LINE FLUSH) 1,000 unit 1X ONCE IART Last administered on 08/04/18at 15:45; Start 08/04/18 at 15:45; Stop 08/04/18 at 15:46; Status DC Heparin Sodium/ Sodium Chloride (HEPARIN for ARTERIAL LINE FLUSH) 1,000 unit 1X ONCE IART Last administered on 08/04/18at 15:45; Start 08/04/18 at 15:45; Stop 08/04/18 at 15:46; Status DC Midazolam HCl (Versed) 2 mg 1X ONCE IV Last administered on 08/04/18at 15:45; Start 08/04/18 at 15:45; Stop 08/04/18 at 15:46; Status DC Fentanyl Citrate (Fentanyl 2ml Vial) 100 mcg 1X ONCE IV Last administered on at 15:45; Start 08/04/18 at 15:45; Stop 08/04/18 at 15:46; Status DC Iohexol (Omnipaque 300 Mg/ml) 100 ml 1X ONCE IART Last administered on at 15:45; Start 08/04/18 at 15:45; Stop 08/04/18 at 15:46; Status DC Lidocaine HCl (Lidocaine 1% 20ml Vial) 20 ml 1X ONCE INJ Last administered on 08/04/18at 15:45; Start 08/04/18 at 15:45; Stop 08/04/18 at 15:46; Status DC Info (CONTRAST GIVEN -- Rx MONITORING) 1 each PRN DAILY PRN MC SEE COMMENTS; Start 08/04/18 at 15:45; Stop 08/06/18 at 15:44; Status DC Furosemide (Lasix) 40 mg 1X ONCE IVP Last administered on 08/04/18at 16:40; Start 08/04/18 at 16:45; Stop 08/04/18 at 16:46; Status DC Furosemide (Lasix) 20 mg 1X ONCE IVP Last administered on 08/05/18 08:54; Start 08/05/18 at 08:00; Stop 08/05/18 at 08:01; Status DC Insulin Human Lispro (HumaLOG) 0-5 UNITS TIDWMEALS SQ Last administered on 08/08 17:22; Start 08/05/18 at 17:00 Dextrose (Dextrose 50%-Water Syringe) 12.5 gm PRN Q15MIN PRN IV SEE COMMENTS; Start 08/05/18 at 14:15 Albuterol Sulfate (Ventolin Neb Soln) 2.5 mg PRN Q2HR PRN NEB SHORTNESS OF BREATH Last administered on 08/06/18at 02:08; Start 08/06/18 at 02:00 Ceftriaxone Sodium (Rocephin) 1 gm Q24H IVP Last administered on 08/07/18 14: 09; Start 08/06/18 at 15:00; Stop 08/08/18 at 12:52; Status DC Furosemide (Lasix) 40 mg [id number] IVP Last administered on 08/07/18at 14:09; Start 08/06/18 at 15:00; Stop 08/07/18 at 15:02; Status DC Enoxaparin Sodium (Lovenox Per Pharmacy Prophylaxis Dosing) 1 each PRN DAILY PRN MC SEE COMMENTS; Start 08/06/18 at 15:15 Enoxaparin Sodium (Lovenox 40mg Syringe) 40 mg Q24H SQ Last administered on at 15:05; Start 08/06/18 at 16:00 Potassium Chloride (Klor-Con) 20 meq 1X ONCE PO Last administered on at 15:30; Start 08/06/18 at 15:15; Stop 08/06/18 at 15:16; Status DC Furosemide (Lasix) 40 mg 1X ONCE IVP Last administered on 08/06/18at 20:47; Start 08/06/18 at 21:00; Stop 08/06/18 at 21:01; Status DC Lactobacillus Rhamnosus (Culturelle) 1 cap BID PO Last administered on at 07:53; Start 08/07/18 at 21:00 Furosemide (Lasix) 40 mg DAILY PO Last administered on 3/17/19at 07:54; Start 08/08/18 at 09:00 Cefdinir (Omnicef) 300 mg BID PO Last administered on 08/09/18at 07:53; Start at 21:00 Active Scripts Active Furosemide 40 Mg Tablet 40 Mg PO DAILY 30 Days Klor-Con M20 (Potassium Chloride) 20 Meq Tab.er.prt 20 Meq PO DAILYWBKFT Aspirin Ec (Aspirin) 81 Mg Tablet.dr 81 Mg PO DAILYWBKFT 30 Days Lisinopril 5 Mg Tablet 5 Mg PO DAILY 30 Days Carvedilol (Carvedilol) 3.125 Mg Tablet 3.125 Mg PO BIDWMEALS 30 Days Atorvastatin Calcium 40 Mg Tablet 40 Mg PO QHS 30 Days Brilinta (Ticagrelor) 90 Mg Tablet 90 Mg PO BID 14 Days Vitals/I & O Vital Sign - Last 24 Hours 08/08/18 08/08/18 08/08/18 08/08/18 12:00 15:00 15:55 19:49 Temp 98.6 98.2 98.6 98.2 Pulse 61 61 Resp 18 18 B/P (MAP) 120/54 (76) 123/59 (80) Pulse Ox 98 95 O2 Delivery Room Air Room Air Room Air Room Air 08/08/18 08/08/18 08/08/18 08/09/18 20:00 20:16 23:36 03:46 Temp 98.0 98.3 98.0 98.3 Pulse 62 60 Resp 18 17 B/P (MAP) 126/59 (81) 114/54 (74) Pulse Ox 96 96 96 O2 Delivery Room Air Room Air Room Air Room Air 08/09/18 08/09/18 08/09/18 08/09/18 07:00 07:27 07:53 07:57 Temp 98.0 98.0 Pulse 59 62 Resp 18 B/P (MAP) 113/53 (73) 113/53 Pulse Ox 96 96 O2 Delivery Room Air Room Air Room Air 08/09/18 08/09/18 10:50 11:18 Temp 97.7 97.7 Pulse 62 Resp 18 B/P (MAP) 112/30 (57) Pulse Ox 96 96 O2 Delivery Room Air Room Air Intake and Output 08/08/18 08/08/18 08/09/18 14:59 22:59 06:59 Intake Total 300 ml Output Total 600 ml 550 ml 1000 ml Balance -600 ml -550 ml -700 ml LEONEL THAKUR MD Aug 09, 2018 11:25
--- NOTE | 2018-08-09 13:10 | PDOC3 ---
Discharge Summary Date of Admission: Aug 04, 2018 Date of Discharge: Aug 09, 2018 Follow-Up: 3-5 days Admitting Diagnosis comment: DISCHARGE DX Chief Complaint impression mod-severe protein-caloric malnutrition GENERALIZED WEAKNESS slow to improve acute hypoxic respiratory failure from acute pulmonary edema, acute systolic CHF STEMI: [facility] with 3VD. TROP > 17, S/P PCI/RAMÍREZ to RCA. remains in junctional rhythm 08/08 CHF, with EF 25% Elevated left sided filling pressures. LVEDP 28 mm Hg Severe sycuan three vessel coronary disease with patent RCA stents. DIABETES 2 UTI, URINE CULTURE RES 1 Final Escherichia coli Greater than 100,000 colony forming units per mL CONT IV ROCEPHIN Q 24 HRS plan may need icd if remains in junctional rhythm 08/09 No acute indication for ICD. after ekg review Ok to DC home on lisinopril, lasix, asa, ticagrelor Hold home coreg. f/u in the office in 2 weeks, cards will arrange. Will mail monitor to her house for evaluation of HR History of Present Illness History of Present Illness plan cvc prn BIPAP LAsix BID pulm and CV following full code iv rocephin consider ICD Vitals Vitals Vital Signs Date Time Temp Pulse Resp B/P (MAP) Pulse Ox O2 Delivery O2 Flow Rate FiO2 08/09/18 11:18 96 Room Air 08/09/18 10:50 97.7 62 18 112/30 (57) 97.7 Physical Exam General: Alert, Oriented X3, Cooperative, No acute distress, mild distress Heart: Regular rate, Normal S1, Normal S2 Lungs: Other (decrease bs) Abdomen: Normal bowel sounds, Soft, No tenderness Extremities: No cyanosis, Normal pulses, Other (1+ bilateral LE edema ) Skin: No significant lesion URINE CULTURE Final Final report URINE CULTURE RES 1 Final Escherichia coli Greater than 100,000 colony forming units per mL Cefazolin <=4 ug/mL Cefazolin with an GIL <=16 predicts susceptibility to the oral agents cefaclor, cefdinir, cefpodoxime, cefprozil, cefuroxime, cephalexin, and loracarbef when used for therapy of uncomplicated urinary tract infections due to E. coli, Klebsiella pneumoniae, and Proteus mirabilis. ANTIMICROBIAL SUSCEPTIBILITY Final Comment S = Susceptible; I = Intermediate; R = Resistant P = Positive; N = Negative MICS are expressed in micrograms per mL Antibiotic RSLT#1 RSLT#2 RSLT#3 RSLT#4 Amoxicillin/Clavulanic Acid S<=2 Ampicillin S<=2 Cefepime S<=0.12 Ceftriaxone S<=0.25 Cefuroxime S<=1 Ciprofloxacin S<=0.25 Ertapenem S<=0.12 Gentamicin S<=1 Imipenem S<=0.25 Levofloxacin S<=0.12 Meropenem S<=0.25 Nitrofurantoin S<=16 Piperacillin/Tazobactam S<=4 Tetracycline S<=1 Tobramycin S<=1 Trimethoprim/Sulfa S<=20 Performed at: [facility] Course Ms. Okeefe is a 68 old [sex] who presented with [UTI/ CHEST DISCOMFORT, WEAKNESS ] CONDITION AT DISCHARGE: Improved Discharge Medications Current Medications Furosemide (Lasix) 40 mg 1X ONCE IVP Last administered on 08/04/18at 02:30; Start 08/04/18 at 02:15; Stop 08/04/18 at 02:16; Status DC Ondansetron HCl (Zofran) 4 mg PRN Q8HRS PRN IV NAUSEA/VOMITING; Start 08/04/18 at 03:00; Stop 08/05/18 at 02:59; Status DC Aspirin (Children'S Aspirin) 324 mg 1X ONCE PO ; Start 08/04/18 at 04:30; Stop 08/04/18 at 04:31; Status DC Ceftriaxone Sodium (Rocephin) 1 gm Q24H IVP Last administered on 08/04/18at 04: 39; Start 08/04/18 at 04:30; Stop 08/04/18 at 11:16; Status DC Insulin Human Lispro (HumaLOG) 0-7 UNITS TIDWMEALS SQ ; Start 08/04/18 at 08:00 ; Stop 08/05/18 at 15:13; Status DC Dextrose (Dextrose 50%-Water Syringe) 12.5 gm PRN Q15MIN PRN IV SEE COMMENTS; Start 08/04/18 at 04:15; Status Cancel Hydralazine HCl (Apresoline Inj) 10 mg PRN Q6HRS PRN IVP ELEVATED BP, SEE COMMENTS; Start 08/04/18 at 04:15 Heparin Sodium/ Dextrose 500 ml @ 0 mls/hr CONT PRN IV SEE I/O RECORD Last administered on 08/04/18at 06:52; Start 08/04/18 at 06:30; Stop 08/05/18 at 15:13 ; Status DC Heparin Sodium (Porcine) (Heparin Sodium) 1,650 unit PRN Q6HRS PRN IV FOR UFH LEVEL LESS THAN 0.2; Start 08/04/18 at 06:30; Stop 08/05/18 at 15:13; Status DC Aspirin (Ecotrin) 81 mg DAILYWBKFT PO Last administered on 08/09/18at 07:53; Start 08/05/18 at 08:00 Atorvastatin Calcium (Lipitor) 40 mg QHS PO Last administered on 08/08/18at 21: 23; Start 08/04/18 at 21:00 Carvedilol (Coreg) 3.125 mg BIDWMEALS PO Last administered on 08/06/18 09:00; Start 08/04/18 at 17:00; Stop 08/06/18 at 14:57; Status DC Potassium Chloride (Klor-Con) 20 meq DAILYWBKFT PO Last administered on at 07:53; Start 08/04/18 at 11:00 Ticagrelor (Brilinta) 90 mg BID PO Last administered on 08/09/18 07:53; Start 08/04/18 at 21:00 Lisinopril (Prinivil) 5 mg DAILY PO Last administered on 08/09/18at 07:53; Start 08/04/18 at 11:00 Info (Anti-Coagulation Monitoring By Pharmacy) 1 each PRN DAILY PRN MC SEE COMMENTS Last administered on 08/04/18at 13:17; Start 08/04/18 at 10:15; Stop at 15:13; Status DC Influenza Virus Vaccine (Afluria Trivalent [id number] Syringe) 0.5 ml ONCE ONCE VAX IM Last administered on 08/05/18at 17:07; Start 08/04/18 at 11:00; Stop 05/13 at 11:02; Status DC Albuterol/ Ipratropium (Duoneb) 3 ml RTQID NEB Last administered on 08/09/18at 11:17; Start 08/04/18 at 12:00 Iodixanol (Visipaque 320) 100 ml STK-MED ONCE .ROUTE ; Start 08/04/18 at 15:20; Stop 08/04/18 at 15:21; Status DC Lidocaine HCl (Xylocaine-Mpf 1% 2ml Vial) 2 ml STK-MED ONCE .ROUTE ; Start 08/04 at 15:20; Stop 08/04/18 at 15:21; Status DC Heparin Sodium/ Sodium Chloride 1,000 ml @ As Directed STK-MED ONCE .ROUTE ; Start 08/04/18 at 15:20; Stop 08/04/18 at 15:21; Status DC Lidocaine HCl (Lidocaine 1% 20ml Vial) 20 ml STK-MED ONCE .ROUTE ; Start at 15:27; Stop 08/04/18 at 15:28; Status DC Midazolam HCl (Versed) 2 mg STK-MED ONCE .ROUTE ; Start 08/04/18 at 15:29; Stop 08/04/18 at 15:30; Status DC Fentanyl Citrate (Fentanyl 2ml Vial) 100 mcg STK-MED ONCE .ROUTE ; Start at 15:29; Stop 08/04/18 at 15:30; Status DC Heparin Sodium/ Sodium Chloride (HEPARIN for ARTERIAL LINE FLUSH) 1,000 unit 1X ONCE IART Last administered on 08/04/18at 15:45; Start 08/04/18 at 15:45; Stop 08/04/18 at 15:46; Status DC Heparin Sodium/ Sodium Chloride (HEPARIN for ARTERIAL LINE FLUSH) 1,000 unit 1X ONCE IART Last administered on 08/04/18at 15:45; Start 08/04/18 at 15:45; Stop 08/04/18 at 15:46; Status DC Midazolam HCl (Versed) 2 mg 1X ONCE IV Last administered on 08/04/18at 15:45; Start 08/04/18 at 15:45; Stop 08/04/18 at 15:46; Status DC Fentanyl Citrate (Fentanyl 2ml Vial) 100 mcg 1X ONCE IV Last administered on at 15:45; Start 08/04/18 at 15:45; Stop 08/04/18 at 15:46; Status DC Iohexol (Omnipaque 300 Mg/ml) 100 ml 1X ONCE IART Last administered on at 15:45; Start 08/04/18 at 15:45; Stop 08/04/18 at 15:46; Status DC Lidocaine HCl (Lidocaine 1% 20ml Vial) 20 ml 1X ONCE INJ Last administered on 08/04/18at 15:45; Start 08/04/18 at 15:45; Stop 08/04/18 at 15:46; Status DC Info (CONTRAST GIVEN -- Rx MONITORING) 1 each PRN DAILY PRN MC SEE COMMENTS; Start 08/04/18 at 15:45; Stop 08/06/18 at 15:44; Status DC Furosemide (Lasix) 40 mg 1X ONCE IVP Last administered on 08/04/18at 16:40; Start 08/04/18 at 16:45; Stop 08/04/18 at 16:46; Status DC Furosemide (Lasix) 20 mg 1X ONCE IVP Last administered on 08/05/18at 08:54; Start 08/05/18 at 08:00; Stop 08/05/18 at 08:01; Status DC Insulin Human Lispro (HumaLOG) 0-5 UNITS TIDWMEALS SQ Last administered on 08/09at 11:58; Start 08/05/18 at 17:00 Dextrose (Dextrose 50%-Water Syringe) 12.5 gm PRN Q15MIN PRN IV SEE COMMENTS; Start 08/05/18 at 14:15 Albuterol Sulfate (Ventolin Neb Soln) 2.5 mg PRN Q2HR PRN NEB SHORTNESS OF BREATH Last administered on 08/06/18at 02:08; Start 08/06/18 at 02:00 Ceftriaxone Sodium (Rocephin) 1 gm Q24H IVP Last administered on 08/07/18at 14: 09; Start 08/06/18 at 15:00; Stop 08/08/18 at 12:52; Status DC Furosemide (Lasix) 40 mg BID92 IVP Last administered on 08/07/18at 14:09; Start 08/06/18 at 15:00; Stop 08/07/18 at 15:02; Status DC Enoxaparin Sodium (Lovenox Per Pharmacy Prophylaxis Dosing) 1 each PRN DAILY PRN MC SEE COMMENTS; Start 08/06/18 at 15:15 Enoxaparin Sodium (Lovenox 40mg Syringe) 40 mg Q24H SQ Last administered on at 15:05; Start 08/06/18 at 16:00 Potassium Chloride (Klor-Con) 20 meq 1X ONCE PO Last administered on at 15:30; Start 08/06/18 at 15:15; Stop 08/06/18 at 15:16; Status DC Furosemide (Lasix) 40 mg 1X ONCE IVP Last administered on 08/06/18at 20:47; Start 08/06/18 at 21:00; Stop 08/06/18 at 21:01; Status DC Lactobacillus Rhamnosus (Culturelle) 1 cap BID PO Last administered on 07:53; Start 08/07/18 at 21:00 Furosemide (Lasix) 40 mg DAILY PO Last administered on 08/09/18at 07:54; Start 08/08/18 at 09:00 Cefdinir (Omnicef) 300 mg BID PO Last administered on 08/09/18at 07:53; Start at 21:00 Active Scripts Active Furosemide 40 Mg Tablet 40 Mg PO DAILY 30 Days Klor-Con M20 (Potassium Chloride) 20 Meq Tab.er.prt 20 Meq PO DAILYWBKFT Aspirin Ec (Aspirin) 81 Mg Tablet.dr 81 Mg PO DAILYWBKFT 30 Days Lisinopril 5 Mg Tablet 5 Mg PO DAILY 30 Days Carvedilol (Carvedilol) 3.125 Mg Tablet 3.125 Mg PO BIDWMEALS 30 Days Atorvastatin Calcium 40 Mg Tablet 40 Mg PO QHS 30 Days Brilinta (Ticagrelor) 90 Mg Tablet 90 Mg PO BID 14 Days Vital Signs Vital Signs Date Time Temp Pulse Resp B/P (MAP) Pulse Ox O2 Delivery O2 Flow Rate FiO2 08/09/18 11:18 96 Room Air 08/09/18 10:50 97.7 62 18 112/30 (57) 97.7 Labs Laboratory Tests Test 08/07/18 16:56 08/07/18 20:08 08/08/18 04:25 08/08/18 07:57 Glucose (Fingerstick) 179 mg/dL (70-99) 164 mg/dL (70-99) 118 mg/dL (70-99) White Blood Count 4.5 x10^3/uL (4.0-11.0) Red Blood Count 3.97 x10^6/uL (3.50-5.40) Hemoglobin 11.5 g/dL (12.0-15.5) Hematocrit 34.2 % (36.0-47.0) Mean Corpuscular Volume 86 fL (79-100) Mean Corpuscular Hemoglobin 29 pg (25-35) Mean Corpuscular Hemoglobin Concent 34 g/dL (31-37) Red Cell Distribution Width 15.3 % (11.5-14.5) Platelet Count 157 x10^3/uL (140-400) Neutrophils (%) (Auto) 71 % (31-73) Lymphocytes (%) (Auto) 20 % (24-48) Monocytes (%) (Auto) 8 % (0-9) Eosinophils (%) (Auto) 0 % (0-3) Basophils (%) (Auto) 1 % (0-3) Neutrophils # (Auto) 3.2 x10^3uL (1.8-7.7) Lymphocytes # (Auto) 0.9 x10^3/uL (1.0-4.8) Monocytes # (Auto) 0.4 x10^3/uL (0.0-1.1) Eosinophils # (Auto) 0.0 x10^3/uL (0.0-0.7) Basophils # (Auto) 0.0 x10^3/uL (0.0-0.2) Sodium Level 135 mmol/L (136-145) Potassium Level 3.6 mmol/L (3.5-5.1) Chloride Level 97 mmol/L (98-107) Carbon Dioxide Level 27 mmol/L (21-32) Anion Gap 11 (6-14) Blood Urea Nitrogen 19 mg/dL (7-20) Creatinine 1.1 mg/dL (0.6-1.0) Estimated GFR (Cockcroft-Gault) 49.1 Glucose Level 121 mg/dL (70-99) Calcium Level 8.4 mg/dL (8.5-10.1) Test 08/08/18 11:21 08/08/18 17:13 08/08/18 20:41 08/09/18 07:12 Glucose (Fingerstick) 152 mg/dL (70-99) 187 mg/dL (70-99) 140 mg/dL (70-99) 108 mg/dL (70-99) Test 08/09/18 08:10 08/09/18 10:58 Sodium Level 135 mmol/L (136-145) Potassium Level 4.2 mmol/L (3.5-5.1) Chloride Level 97 mmol/L (98-107) Carbon Dioxide Level 30 mmol/L (21-32) Anion Gap 8 (6-14) Blood Urea Nitrogen 16 mg/dL (7-20) Creatinine 1.0 mg/dL (0.6-1.0) Estimated GFR (Cockcroft-Gault) 54.8 BUN/Creatinine Ratio 16 (6-20) Glucose Level 121 mg/dL (70-99) Calcium Level 8.8 mg/dL (8.5-10.1) Total Bilirubin 1.5 mg/dL (0.2-1.0) Aspartate Amino Transf (AST/SGOT) 23 U/L (15-37) Alanine Aminotransferase (ALT/SGPT) 19 U/L (14-59) Alkaline Phosphatase 61 U/L (46-116) Total Protein 7.2 g/dL (6.4-8.2) Albumin 3.0 g/dL (3.4-5.0) Albumin/Globulin Ratio 0.7 (1.0-1.7) Glucose (Fingerstick) 174 mg/dL (70-99) Laboratory Tests Test 08/08/18 17:13 08/08/18 20:41 08/09/18 07:12 08/09/18 08:10 Glucose (Fingerstick) 187 mg/dL (70-99) 140 mg/dL (70-99) 108 mg/dL (70-99) Sodium Level 135 mmol/L (136-145) Potassium Level 4.2 mmol/L (3.5-5.1) Chloride Level 97 mmol/L (98-107) Carbon Dioxide Level 30 mmol/L (21-32) Anion Gap 8 (6-14) Blood Urea Nitrogen 16 mg/dL (7-20) Creatinine 1.0 mg/dL (0.6-1.0) Estimated GFR (Cockcroft-Gault) 54.8 BUN/Creatinine Ratio 16 (6-20) Glucose Level 121 mg/dL (70-99) Calcium Level 8.8 mg/dL (8.5-10.1) Total Bilirubin 1.5 mg/dL (0.2-1.0) Aspartate Amino Transf (AST/SGOT) 23 U/L (15-37) Alanine Aminotransferase (ALT/SGPT) 19 U/L (14-59) Alkaline Phosphatase 61 U/L (46-116) Total Protein 7.2 g/dL (6.4-8.2) Albumin 3.0 g/dL (3.4-5.0) Albumin/Globulin Ratio 0.7 (1.0-1.7) Test 08/09/18 10:58 Glucose (Fingerstick) 174 mg/dL (70-99) Allergies Allergies Coded Allergies Type Severity Reaction Last Updated Verified No Known Drug Allergies 05/31/18 No Disposition/Orders: D/C to Home Patient Instructions D/C PLANNING 38 MIN LEONEL THAKUR MD Aug 09, 2018 13:10
[2018-08-09] MEDS ORDERED: LACT1CAP19 PO (13:58)
[2018-08-09] MEDS ORDERED: CEFD300C PO (13:58)
--- NOTE | 2018-08-09 13:59 | DISCH ---
DISCHARGE INSTRUCTIONS Condition on Discharge Condition on Discharge: Stable Activity After Discharge Activity Instructions for Disc: No restrictions, Activity as tolerated Bathing Instructions: No Tub Bath until see Lifting Instructions after Dis: No heavy lifting, No pulling or pushing, Do not lift >10 pounds Driving Instructions after Dis: Other, see below Weight Bearing Status after Di: As tolerated Diet after Discharge Diet after Discharge: Cardiac Diet Texture: Regular Liquid Texture: Thin Liquid Swallowing Supervision: None needed Wound Incision Care Wound/Incision Care: Other, see below Checks after Discharge Checks after discharge: Check blood press - daily, Weigh Yourself Daily Contacting the DRBeni after DC Call your doctor for: If your condition worsens LEONEL THAKUR MD Aug 09, 2018 13:59
[2018-08-09 15:00] VITALS: BP 105/57
--- NOTE | 2018-08-09 17:13 | NUR ---
Pt discharged to home. All discharge instructions, education, follow-ups reviewed with pt. IV d/c'd without complications prior to leaving. All prescriptions called into [facility] pharmacy prior to leaving per sons request. Pt denies further needs. Pt assisted to ar via wheelchair with staff and family.
== END 2018-08-09 17:15 | disposition home or self-care (01) | DRG 280 ==
LOC: ER 01:05 → 1 WEST ICU 02:22 → CVICU 08-05 18:35 → 2 SOUTH 08-06 18:05
PROVIDERS: ADMIT Internal Medicine; ATTEND Internal Medicine
PROC: 4A023N7 Measurement of Cardiac Sampling and Pressure, Left Heart, Percutaneous Approach (ICD-10-PCS; principal; 2018-08-04)
PROC: B2111ZZ Fluoroscopy of Multiple Coronary Arteries using Low Osmolar Contrast (ICD-10-PCS; 2018-08-04)
PROC: 5A09357 Assistance with Respiratory Ventilation, Less than 24 Consecutive Hours, Continuous Positive Airway Pressure (ICD-10-PCS; 2018-08-04)
PROC: 5A09357 Assistance with Respiratory Ventilation, Less than 24 Consecutive Hours, Continuous Positive Airway Pressure (ICD-10-PCS; 2018-08-06)
DX: I21.4 Non-ST elevation (NSTEMI) myocardial infarction (principal); J96.01 Acute respiratory failure with hypoxia; I50.23 Acute on chronic systolic (congestive) heart failure; E43 Unspecified severe protein-calorie malnutrition; N39.0 Urinary tract infection, site not specified; N17.9 Acute kidney failure, unspecified; E87.2 Acidosis; I11.0 Hypertensive heart disease with heart failure; J44.9 Chronic obstructive pulmonary disease, unspecified; I25.5 Ischemic cardiomyopathy; R62.7 Adult failure to thrive; M19.90 Unspecified osteoarthritis, unspecified site; B34.9 Viral infection, unspecified; B96.20 Unspecified Escherichia coli [E. coli] as the cause of diseases classified elsewhere; E11.65 Type 2 diabetes mellitus with hyperglycemia; E78.5 Hyperlipidemia, unspecified; F17.210 Nicotine dependence, cigarettes, uncomplicated; I25.10 Atherosclerotic heart disease of native coronary artery without angina pectoris; I25.2 Old myocardial infarction; Z82.49 Family history of ischemic heart disease and other diseases of the circulatory system; Z86.73 Personal history of transient ischemic attack (TIA), and cerebral infarction without residual deficits; Z83.3 Family history of diabetes mellitus; Z95.5 Presence of coronary angioplasty implant and graft; Z68.25 Body mass index [BMI] 25.0-25.9, adult
CPT/HCPCS: 36415; 36600; 71045; 80048; 80053; 80061; 81001; 82805; 82962; 83036; 83605; 83735; 83880; 84484; 85025; 85027; 85520; 87040; 87086; 87186; 90471; 90756; 93005; 93308; 93458; 94640; 94660; 94760; 96374; 99152; C1760; C1769; C1892; G0269; J0696; J1644; J1650; J1815; J1940; J2250; J3010; J7613; J7620; Q9967; 97116; 97530; 97535; 99291-25; C1771; Q2035

== ENCOUNTER 2018-08-11 11:41 | Emergency (ER) | payer OTHER ==
[~2018-08-11] VITALS: Ht 157.5 cm; Wt 63.5 kg
[~2018-08-11 11:41] MED LIST changes: +CEFD300C PO; +LACT1CAP19 PO
--- NOTE | 2018-08-11 12:25 | PHYS DOC ---
Past Medical History Past Medical History: CHF, CVA, Hypertension, Stroke Past Surgical History: No Surgical History Alcohol Use: None Drug Use: None Adult General Chief Complaint Chief Complaint: NOSEBLEED HPI HPI Patient is a 68 year old female with history of hypertension, CVA, who presents to the ED today complaining of nose bleeding that began one hour ago from the left nasal cavity. Patient denies any trauma. She states she is on a baby aspirin daily. Review of Systems Review of Systems Constitutional: Denies fever or chills [] Eyes: Denies change in visual acuity, redness, or eye pain [] HENT: Denies nasal congestion or sore throat [] Respiratory: Reports nose bleeding. Denies cough or shortness of breath [] Cardiovascular: No additional information not addressed in HPI [] GI: Denies abdominal pain, nausea, vomiting, bloody stools or diarrhea [] : Denies dysuria or hematuria [] Musculoskeletal: Denies back pain or joint pain [] Integument: Denies rash or skin lesions [] Neurologic: Denies headache, focal weakness or sensory changes [] All other systems were reviewed and found to be within normal limits, except as documented in this note. Current Medications Current Medications Current Medications Medications (Trade) Dose Ordered Sig/Darby Start Time Stop Time Status Last Admin Dose Admin Oxymetazoline HCl (Afrin) 2 spray 1X ONCE 08/11/18 12:30 08/11/18 12:31 DC 08/11/18 12:29 2 SPRAY Allergies Allergies Allergies Coded Allergies Type Severity Reaction Last Updated Verified No Known Drug Allergies 05/31/18 No Physical Exam Physical Exam Constitutional: Well developed, well nourished, no acute distress, non-toxic appearance. [] HENT: Normocephalic, atraumatic, bilateral external ears normal, oropharynx moist, no oral exudates, left nasal cavity with a blood clot. No obvious active bleeding noted. Eyes: PERRLA, EOMI, conjunctiva normal, no discharge. [] Neck: Normal range of motion, no tenderness, supple, no stridor. [] Cardiovascular:Heart rate regular rhythm, no murmur [] Lungs & Thorax: Bilateral breath sounds clear to auscultation [] Abdomen: Bowel sounds normal, soft, no tenderness, no masses, no pulsatile masses. [] Skin: Warm, dry, no erythema, no rash. [] Back: No tenderness, no CVA tenderness. [] Extremities: No tenderness, no cyanosis, no clubbing, ROM intact, no edema. [] Neurologic: Alert and oriented X 3, normal motor function, normal sensory function, no focal deficits noted. [] Psychologic: Affect normal, judgement normal, mood normal. [] Current Patient Data Vital Signs Vital Signs Date Time Temp Pulse Resp B/P (MAP) Pulse Ox O2 Delivery O2 Flow Rate FiO2 08/11/18 11:51 98.0 68 22 137/60 (85) 96 Room Air 98.0 EKG EKG [] Radiology/Procedures Radiology/Procedures [] Course & Med Decision Making Course & Med Decision Making Pertinent Labs and Imaging studies reviewed. (See chart for details) This is a 68-year-old female patient presenting to the ED today complaining of nose bleeding that began an hour ago. On arrival to the ED there is a blood clot in the left nasal cavity. Blood pressure is 137/60. Afrin used in the left nose. No more bleeding noted. D/C to home. Dragon Disclaimer Dragon Disclaimer This electronic medical record was generated, in whole or in part, using a voice recognition dictation system. Departure Departure Impression: Primary Impression: Epistaxis Disposition: HOME, SELF-CARE Condition: STABLE Referrals: NO PCP (PCP) Follow-up with your doctor in the course of this week or next week Patient Instructions: Nosebleed Additional Instructions: You were evaluated for nose bleeding which stopped currently does not have any bleeding. Please use Afrin as directed avoid sneezing or any trauma to the nose. Follow-up with your doctor in the course of this week. Come back to the ED at any point symptoms worsen. TONYA LEÓN APRN Aug 11, 2018 12:25
[2018-08-11] MEDS ORDERED: OXYMETAZOLINE 0.05% NASAL SPRAY 30ML BOTTLE. NS ONE (12:30)
[2018-08-11 13:18] VITALS: BP 131/71
== END 2018-08-11 13:20 | disposition home or self-care (01) ==
LOC: ER 11:41
DX: R04.0 Epistaxis (principal); I11.0 Hypertensive heart disease with heart failure; I50.9 Heart failure, unspecified; Z86.73 Personal history of transient ischemic attack (TIA), and cerebral infarction without residual deficits
CPT/HCPCS: 99284

== ENCOUNTER → 2021-02-07 | Outpatient (CLI) | payer OTHER ==
[~2021-02-07] MED LIST changes: -ASPI-612 PO; +ASPI-886 PO; -LISI-338 PO; +LISI-517 PO; +POTA-121 PO; -POTA20TA4 PO
--- NOTE | 2021-02-07 18:25 | RAD ---
MR#: [id number] Date of Study: 02/07/2021 Ordering Physician: RITA DAVILA, Referring Physician: RITA DAVILA, Tech: Obed Cage, JOHN, RDMS, RVT, RDCS, RTR APPROVED REPORT Patient Location: OUT-PATIENT Indications PAD VELOCITY AND DOPPLER WAVEFORM ANALYSIS RIGHT cm/secWaveformSeverity LEFT cm/secWaveform Severity dCFA 256.0MonophasicdCFA 114.0Monophasic Prof Fem Art. 226.0MonophasicProf Fem Art. 116.0Monophasic Fem Art Prox. 68.0MonophasicFem Art Prox. 57.0Monophasic Fem Art Mid. 26.0MonophasicFem Art Mid. Occluded Fem Art Dist. 126.0MonophasicFem Art Dist. 22.0Monophasic Pop Art(Fossa) 101.0MonophasicPop Art(AK) 19.0Monophasic ORACLE SOA ARCHITECT Prox. 57.0MonophasicPTA Prox. 35.0Monophasic ORACLE SOA ARCHITECT Dist. 26.0MonophasicPTA Dist. 21.0Monophasic Per Art Mid. Per Art Mid. 21.0Monophasic LUCA Prox. 41.0MonophasicATA Prox. 39.0Monophasic DPA 20MonophasicDPA 12Monophasic Findings Grayscale images demonstrate severe bilateral lower extremity atherosclerotic disease. On the right side there is likely a greater than 50% stenosis involving the common femoral artery. T here is likely severe diffuse disease of greater than 75% stenosis involving the mid to distal SFA. Below the knee there is two-vessel runoff with monophasic waveforms and a peroneal artery that was no t visualized. On the left side there is likely high-grade stenosis involving the mid to distal SFA with likely near occlusion. Below the knee there are severely diminished monophasic waveforms suggestive of more pro ximal disease. Critical Notification Critical Value: No <Conclusion> 1. Severe bilateral lower extremity arterial disease Signed by : Rita Davila, Electronically Approved : 02/07/2021 18:24:30
--- NOTE | 2021-02-07 18:26 | RAD ---
MR#: [id number] Date of Study: 02/07/2021 Ordering Physician: RITA DAVILA, Referring Physician: RITA DAVILA, Tech: Obed Cage MBA, RDMS, RVT, RDCS, RTR APPROVED REPORT Patient Location: OUT-PATIENT Indications PAD Findings Right arm 145, left arm 138 Bilateral ankle pressures could not be obtained due to lack of compressibility Critical Notification Critical Value: No <Conclusion> 1. Nondiagnostic bilateral JUDITH Signed by : Rita Davila, Electronically Approved : 02/07/2021 18:25:56
--- NOTE | 2021-02-08 12:14 | CARD ---
MR#: [id number] Date of Study: 02/07/2021 Ordering Physician: HUSEYIN DAVILA, Referring Physician: HUSEYIN DAVILA, Tech: Rafaela Hubbard [facility] APPROVED REPORT EXAM: Two-dimensional and M-mode echocardiogram with Doppler and color Doppler. Other Information Quality : FairHR: 59bpm Rhythm : NSRTechnically limited study due to body habitus. INDICATION Congestive Heart Failure RISK FACTORS Elevated troponin 2D DIMENSIONS RVDd3.0 (2.9-3.5cm)Left Atrium(2D)3.8 (1.6-4.0cm) IVSd1.2 (0.7-1.1cm)Aortic Root(2D)3.1 (2.0-3.7cm) LVDd5.0 (3.9-5.9cm)LVOT Diameter2.0 (1.8-2.4cm) PWd1.1 (0.7-1.1cm)LVDs3.1 (2.5-4.0cm) FS (%) 38.4 %SV80.5 ml LVEF(%)68.4 (>50%) Aortic Valve AoV Peak Kg.155.2cm/sAoV VTI33.6cm AO Peak GR.9.6mmHgLVOT Peak Kg.107.2cm/s AO Mean GR.4mmHgAVA (VMAX)2.24cm2 Mitral Valve MV E Phqduyqy72.3cm/sMV DECEL [id number] MV A Hmfgtibh44.5cm/sE/A Ratio3.5 Pulmonary Valve PV Peak Fcniaycs774.6cm/s LEFT VENTRICLE The left ventricle is normal size. There is borderline concentric left ventricular hypertrophy. The s ystolic function is mildly impaired. EF 45% Moderate inferior wall hypokinesis. Otherwise, mild globa l hypokinesis. Tissue Doppler imaging reveals moderate left ventricular diastolic dysfunction. No lef t ventricle thrombus noted on this study. There is no ventricular septal defect visualized. There is no left ventricular aneurysm. There is no mass noted in the left ventricle. RIGHT VENTRICLE The right ventricle is normal size. There is normal right ventricular wall thickness. The right ventr icular systolic function is normal. ATRIA The left atrium is mildly dilated. The right atrium size is normal. The interatrial septum is intact with no evidence for an atrial septal defect or patent foramen ovale as noted on 2-D or Doppler imagi ng. AORTIC VALVE The aortic valve is thickened but opens well. Doppler and Color Flow revealed mild aortic regurgitati on. There is no significant aortic valvular stenosis. There is no aortic valvular vegetation. MITRAL VALVE The mitral valve is thickened but opens well. There is no evidence of mitral valve prolapse. There is no mitral valve stenosis. Doppler and Color-flow revealed mild to moderate mitral regurgitation. TRICUSPID VALVE The tricuspid valve is normal in structure and function. Doppler and Color Flow revealed trace tricus pid regurgitation. There is no tricuspid valve prolapse or vegetation. There is no tricuspid valve st enosis. PULMONIC VALVE The pulmonic valve is not well seen. Doppler and Color Flow revealed no pulmonic valvular regurgitati on. There is no pulmonic valvular stenosis. GREAT VESSELS The aortic root is normal in size. The ascending aorta is normal in size. The IVC is normal in size a nd collapses >50% with inspiration. PERICARDIAL EFFUSION There is no pleural effusion. There is no evidence of significant pericardial effusion. Critical Notification Critical Value: No <Conclusion> The systolic function is mildly impaired. EF 45% Moderate inferior wall hypokinesis. Otherwise, mild global hypokinesis. Doppler and Color-flow revealed mild to moderate mitral regurgitation. Signed by : Huseyin Davila, Electronically Approved : 02/08/2021 12:14:35
== END ==
LOC: ECHO 13:51
PROVIDERS: ATTEND Internal Medicine Cardiovascular Disease
DX: I70.203 Unspecified atherosclerosis of native arteries of extremities, bilateral legs (principal); I50.9 Heart failure, unspecified; I51.7 Cardiomegaly
CPT/HCPCS: 93306; 93922; 93925

== ENCOUNTER → 2021-07-03 | Outpatient (CLI) | payer OTHER ==
[~2021-07-03] MED LIST changes: -LISI-517 PO; +LISI5TAB15 PO; +REGADENOSON 0.4 MG/5 ML DISP.SYRIN. IV ONE
--- NOTE | 2021-07-04 11:36 | RAD ---
MR#: [id number] Date of Study: 07/03/2021 Ordering Physician: RITA DAVILA, Referring Physician: EUFEMIA CORDOBA Tech: RT Lynn (R) (N) APPROVED REPORT Test Type: Pharmacological Stress Nurse/Tech: SHARMILA BILL Test Indications: CAD Cardiac History: SEE EMR Medications: SEE EMR Medical History: POOR HISTORIAN- SEE EMR Resting ECG: SB W/PAC'S/BBB, ABNORMAL QRS Resting Heart Rate: 58 bpm Resting Blood Pressure: 145/60mmHg Pretest Chest Pain: No chest pain Nurse/Tech Notes S1,S2, LUNGS C/D, DENIED CHEST PAIN OR SHORTNESS OF AIR, VSS. Consent: The procedure was explained to the patient in lay terms. Informed consent was witnessed. Timoteo eout was entered into [employer]. History and Stress Test performed by EUFEMIA BrownTCSaumya, ARRT (R) (N) Pharm. Details Pharmacologic stress testing was performed using 0.4mg per 5ml of regadenoson given intravenously ove r 7-10 seconds. Stress Symptoms PT DENIED SYMPTOMS THROUGHOUT ENTIRE TEST. VSS. POST EXERCISE Reason for Termination: Infusion complete Max HR: 76 bpm Max Blood Pressure: 145/59mmHg Blood Pressure response to exercise: Normal blood pressure response during stress. Heart Rate response to exercise: WNL Chest Pain: No. Arrhythmia: Yes. A COUPLE PAC'S AND PAUSES NOTED ON EKG, NO OTHER SIGNIFICANT CHANGES FROM BASELINE. INTERPRETATION Stress EKG Conclusion: The resting EKG shows a sinus rhythm with an incomplete right bundle branch bl ock and nonspecific ST-T wave changes. The stress EKG shows no significant changes from baseline. No EKG evidence of stress-induced ischemia. Imaging Protocol IMAGE PROTOCOL: Rest Tc-99m/stress Tc-99m 1 day Rest: Stress: Viability: Radiopharm.Tc99m NrcyfiswjXc08y Sestamibi Omsy69rKr 32.3mCi Duration 13min. 13min. Img Date 07/03/2021 07/03/2021 Inj-Img Gkmg61hsc. 60min. Rest Admin Site:IV - Right AntecubitalAdministrator:Allie Pate RT (R)(N) Stress Admin Site: IV - Right AntecubitalAdministrator: EUFEMIA BrownTCSaumya, ARRT (R)(N) STRESS DATA End Diast. Vol.159.0mlLVEDV index BSA92.0ml End Syst. Vol.98.0mlLVESV index BSA57.0ml Myocardial Ludd611.0gEject. Dwronmtv76.0% Stress Scores Regional WT3.00Summed WT36.00 Regional WM0.00Summed WM16.00 LV Perfusion The stress scans show an inferior, lateral and apical defect. The rest scans show a similar but less pronounced defect in the inferior, lateral and apical regions. 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 Wall Motion Left ventricular systolic function is decreased with an ejection fraction of 38%. LV Perf. Quant 17 Seg. SSS26.00 17 Seg. SRS15.00 17 Seg. SDS11.00 Stress Defect Extent (% LAD)41.30Rest Defect Extent (% LAD)20.00Rev. Defect Extent (% LAD)40.00 Stress Defect Extent (% LCX) 93.80Rest Defect Extent (% LCX)80.00Rev. Defect Extent (% LCX)73.80 Stress Defect Extent (% RCA)24.40Rest Defect Extent (% RCA)14.40Rev. Defect Extent (% RCA)15.60 Stress Defect Extent (% HIRO)52.00Rest Defect Extent (% HIRO)34.80Rev. Defect Extent (% HIRO)43.00 Conclusion 1. Mildly abnormal baseline EKG but no EKG evidence of stress-induced ischemia. 2. 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 3. Decreased ejection fraction of 38%. 4. Moderate risk Lexiscan nuclear stress test. Signed by : Frank Soto MD Electronically Approved : 07/04/2021 11:36:02
== END ==
LOC: NM 09:09
PROVIDERS: ATTEND Internal Medicine Cardiovascular Disease
DX: R94.31 Abnormal electrocardiogram [ECG] [EKG] (principal); I25.10 Atherosclerotic heart disease of native coronary artery without angina pectoris
CPT/HCPCS: 78452; 93017; A9500; J2785